=== PATIENT | male | born 1945 | race Caucasian/White ===

== ENCOUNTER 2023-06-26 15:04 | Outpatient (CLI) | payer MEDICARE, SELFPAY ==
--- NOTE | 2023-06-26 15:11 | XR_ITS ---
FINAL REPORT TECHNIQUE: Chest PA & Lateral CLINICAL HISTORY: dyspnea/chf FINDINGS: 2 views of the chest were performed. There is mild cardiomegaly. The patient is status post median sternotomy. The lungs are clear. There are small bilateral pleural effusions. There is no pneumothorax. The bony thorax appears intact. IMPRESSION: Small bilateral pleural effusions. Reviewed, Interpreted and Dictated by Sumeet Gudino MD Transcribed by Liz Garner Authenticated and [facility]
[2023-06-26 15:42] LABS: Basophils # 0.1 K/mm3 (0-0.2); Basophils % 0.7 % (0.1-2.0); Eosinophils # 0.5 K/mm3 (0.0-0.4); Eosinophils % 6.8 % (0.1-12.0); Hematocrit 37.2 % (42.0-52.0); Hemoglobin 11.9 g/dL (14.1-18.0); Lymphocytes # 1.4 K/mm3 (0.7-4.5); Lymphocytes % 20.9 % (10-50); Mean Corpuscular HGB Conc 31.9 g/dL (31.8-35.4); Mean Corpuscular Hemoglobin 32.7 pg (27.0-31.2); Mean Corpuscular Volume 102.5 fl (80-94); Mean Platelet Volume 9.4 fl (7.4-10.4); Monocytes # 0.3 K/mm3 (0.1-1.0); Monocytes % 4.1 % (1.7-9.3); Neutrophils # 4.5 K/mm3 (1.8-7.8); Neutrophils % 67.5 % (37.0-80.0); Platelet Count 183 K/mm3 (142-424); Red Blood Count 3.63 M/mm3 (4.60-6.20); Red Cell Distribution Width 16.6 % (11.5-17.5); White Blood Count 6.7 K/mm3 (4.8-10.8)
[2023-06-26 16:45] LABS: Free T4 (Free Thyroxine) 1.43 ng/dl (0.78-2.19)
[2023-06-26 19:34] LABS: Alanine Aminotransferase 17 U/L (12-78); Albumin Level 2.3 g/dl (3.5-5.0); Alkaline Phosphatase 98 U/L (38-126); Anion Gap 2.9 mEq/L (5-15); Aspartate Amino Transferase 34 U/L (17-59); Bilirubin,Direct 0.2 mg/dl (0.0-0.4); Bilirubin,Indirect 0.3 mg/dL (0.0-0.9); Bilirubin,Total 0.5 mg/dl (0.2-1.3); Bilirubin,Unconjugated 0.3 mg/dL (0.0-1.1); Blood Urea Nitrogen 31 mg/dl (9-20); Calcium 7.8 mg/dl (8.4-10.2); Carbon Dioxide 33 mmol/L (22.0-30.0); Chloride 107 mmol/L (98-107); Cholesterol 161 mg/dl (140-200); Estimated Glomerular Filt Rate 45 ml/min (>60); GFR (African American) 55 ML/MIN (>60); Glucose 86 mg/dl (74-100); HDL Cholesterol 53 mg/dl (40-60); Magnesium 1.5 mg/dl (1.6-2.3); Potassium 3.9 mmoL/L (3.5-5.1); Sodium 139 mmol/L (136-145); Total Protein,Serum 4.4 g/dl (6.3-8.2); Triglycerides 144 mg/dl (30-150); VLDL Cholesterol 29 mg/dL (0-40)
[2023-06-26 19:46] LABS: NT Pro Brain Natriuretic Pep. 4940 pg/mL (0-450)
[2023-06-26 19:49] LABS: Direct LDL Cholesterol 66.03 mg/dL (100-129)
== END 2023-06-26 23:59 | disposition home or self-care (01) ==
LOC: LAB 15:06
PROVIDERS: PCP Internal Medicine; Visit Provider Internal Medicine
DX: I25.10 Atherosclerotic heart disease of native coronary artery without angina pectoris (principal); I50.23 Acute on chronic systolic (congestive) heart failure; R42 Dizziness and giddiness; R60.0 Localized edema; R06.00 Dyspnea, unspecified; I48.91 Unspecified atrial fibrillation; R94.31 Abnormal electrocardiogram [ECG] [EKG]; I89.0 Lymphedema, not elsewhere classified
CPT/HCPCS: 36415; 71046; 80048; 80061; 80076; 82533; 83735; 83880; 84439; 84443; 85025; 93225

== ENCOUNTER 2023-06-27 06:33 | Outpatient (CLI) | payer SELFPAY ==
[2023-06-27 20:02] LABS: Free Thyroxine Index 2.5 ug/dL (5.93-13.13); T4 (Thyroxine) 4.9 ug/dl (5.53-11.0); Triiodothryronine (T3) Uptake 52 % (23.5-40.5)
[2023-06-27 20:33] LABS: Free T4 (Free Thyroxine) 1.32 ng/dl (0.78-2.19)
[2023-06-29 13:13] LABS: Triiodothyronine (T3) Total 51 ng/dL (71-180)
== END 2023-06-27 23:59 | disposition home or self-care (01) ==
LOC: LAB.DROPOF 06-29 06:34
PROVIDERS: PCP Physician Assistant; Visit Provider Physician Assistant
DX: E03.9 Hypothyroidism, unspecified (principal); I95.9 Hypotension, unspecified
CPT/HCPCS: 84436; 84439; 84443; 84479; 84480

== ENCOUNTER 2023-06-29 12:13 | Outpatient (CLI) | payer MEDICARE, SELFPAY | END 2023-06-29 23:59 | disposition home or self-care (01) | LOC: RT 12:14 | PROVIDERS: PCP Internal Medicine; Visit Provider Internal Medicine | DX: I48.91 Unspecified atrial fibrillation (principal); I50.9 Heart failure, unspecified; R60.0 Localized edema; R42 Dizziness and giddiness; R06.00 Dyspnea, unspecified; R94.31 Abnormal electrocardiogram [ECG] [EKG] | CPT/HCPCS: 93270 ==

== ENCOUNTER 2023-07-05 13:08 | Outpatient (CLI) | payer MEDICARE, SELFPAY ==
--- NOTE | 2023-07-05 13:09 | CA_ITS ---
APPROVED REPORT EXAM: Comprehensive 2D, Doppler, and color-flow Echocardiogram Search Strategist: Kely Dukes CRT Ht: 6 ft 3 in Wt: 256lbs BSA: 2.44 BP: 129/70 mmHg Indications: CAGB X 07 MAY 2023, CAD, AFIB chronic, HTN, HLD, SOB, bilateral small pleural effusions on cxr 06/25 2D Dimensions LA Volume 66.90 mL LA Volume Index 26.80 mL/m2 (M/F) 16-34 M-Mode Dimensions RVDd 3.19 cm (0.9-2.6) LA Diam 4.62 cm (1.9-4.0) LVDd 3.49 cm (3.5-5.7) LVDs 2.50 cm (3.5-5.7) IVSd 2.31 cm (0.6-1.1) PWd 0.83 cm (0.6-1.1) EF (Teich) 55.80% FS 28.40% EDV (Teich) 50.50 mL ESV (Teich) 22.30 mL LV Diastology E Decel Time 140 (160-240 msec) E/A Ratio 3.22 Aortic Valve ANDRIA Index 0.96 cm2/m2 AoV Peak Freddie. 204.0 (50-130 cm/s) AI PHT 241.00 ms AO Peak GR. 16.60 mmHg AO Mean GR. 10.00 (<5 mmHg) AO VTI 38.5 (18-25 cm) ANDRIA (VTI) 2.40 (2.5-4.5 cm2) Mitral Valve MV E Max Freddie. 107.0 (40-130 cm/s) MV A Velocity 33.0 (40-130 cm/s) E/A Ratio 3.22 MV PHT 41.0 ms Pulmonary Valve PV Peak Velocity 130.0 (50-150 cm/s) Tricuspid Valve TR P. Velocity 282.00 cm/s RAP Estimate 10.00 mmHg RVSP 41.90 mmHg Left Ventricle The left ventricle is normal size. The left ventricular systolic function is normal. The left ventricular ejection fraction is within the normal range. Proximal septal thickening is noted. There is normal LV segmental wall motion. LVEF is 55%. Right Ventricle The right ventricle is normal size. The right ventricular systolic function is normal. Atria Left atrium is mildly dilated. Right atrium is mildly dilated. There is no Doppler evidence of interatrial shunt. Aortic Valve The aortic valve is mildly thickened. Aortic sclerosis is present, but no evidence of aortic stenosis. Mild aortic regurgitation is present. Mitral Valve The mitral valve is mildly thickened. No evidence of mitral valve stenosis. Trace mitral regurgitation. Tricuspid Valve The tricuspid valve leaflets are thin and pliable. Mild to moderate tricuspid regurgitation. RVSP is 25-30 mmHg. Pulmonic Valve The pulmonary valve is normal in structure. Trace pulmonic regurgitation. Great Vessels The aortic root is normal in size. The ascending aorta is normal in size. IVC is normal in size and collapses >50% with inspiration. Pericardium There is a small-sized, circumferential pericardial effusion present. The largest pocket is noted anteriorly towards the RV free wall and apex. There is slight invagination of the RA during systole, but no evidence of chamber collapse. No clear echo indications of tamponade. Pericardial effusion is present. A mediastinal echolucency is also present, which likely represents post-operative mediastinal fluid accumulation. Other Information Study Quality: Fair Conclusion Normal biventricular systolic function. Biatrial dilation. Mild AI. Mild to moderate TR. RVSP is 25-30 mmHg. Small-sized, circumferential pericardial effusion present. The largest pocket is noted anteriorly towards the RV free wall and apex. There is slight invagination of the RA during systole, but no evidence of chamber collapse. No clear echo indications of tamponade. Pericardial effusion is present. A mediastinal echolucency is also present, which likely represents post-operative mediastinal fluid accumulation. Further evaluation with serial limited TTEs is recommended to assess pericardial effusion progression, as well as CT chest to confirm the presence and extent of mediastinal fluid. Electronically signed by : Dannielle Jama MD 07/06/2023 00:38:10
== END 2023-07-05 23:59 | disposition home or self-care (01) ==
LOC: RT 13:09
PROVIDERS: PCP Internal Medicine; Visit Provider Internal Medicine
DX: I50.9 Heart failure, unspecified (principal); R60.0 Localized edema; R42 Dizziness and giddiness; R06.00 Dyspnea, unspecified; I48.91 Unspecified atrial fibrillation; R94.31 Abnormal electrocardiogram [ECG] [EKG]
CPT/HCPCS: 93306

== ENCOUNTER 2023-07-20 12:47 | Outpatient (CLI) | payer MEDICARE, SELFPAY ==
--- NOTE | 2023-07-20 12:47 | CA_ITS ---
APPROVED REPORT EXAM: Comprehensive 2D, Doppler, and color-flow Echocardiogram Solar Project Coordination Specialist: MABEL Terrell, RVS Ht: 6 ft 3 in Wt: 256lbs BSA: 2.44 BP: 129/70 mmHg Indications: CABG 05/2023, Follow up pleural & pericardial effusions, SOA, HFrEF M-Mode Dimensions RVDd 4.28 cm (0.9-2.6) LA Diam 4.95 cm (1.9-4.0) LVDd 4.87 cm (3.5-5.7) LVDs 2.98 cm (3.5-5.7) IVSd 1.14 cm (0.6-1.1) PWd 0.85 cm (0.6-1.1) EF (Teich) 69.10% FS 38.80% EDV (Teich) 111.20 mL ESV (Teich) 34.40 mL Other Information Study Quality: Technically Difficult Conclusion This is a limited TTE to evaluate for pericardial effusion. Limited windows were obtained. Technically difficult study. There is a small sized, circumferential pericardial effusion present. The largest pocket measures 0.2 cm in diastole. The IVC is collapsible. There is slight invagination of the RA during systole, but overall no clear evidence of chamber collapse. Large pleural effusions are present. Compared to prior study from 07/05/2023, the pericardial effusion appears similar or slightly improved. The mediastinal echolucency is no longer visualized in this present study. The pleural effusions are new. Electronically signed by : Dannielle Jama MD 07/20/2023 23:18:34
== END 2023-07-20 23:59 | disposition home or self-care (01) ==
PROVIDERS: PCP Internal Medicine; Visit Provider Nurse Practitioner
DX: I50.30 Unspecified diastolic (congestive) heart failure (principal); E03.9 Hypothyroidism, unspecified; I25.10 Atherosclerotic heart disease of native coronary artery without angina pectoris; I89.0 Lymphedema, not elsewhere classified; R60.0 Localized edema; I48.91 Unspecified atrial fibrillation; R94.31 Abnormal electrocardiogram [ECG] [EKG]; I31.39 Other pericardial effusion (noninflammatory)
CPT/HCPCS: 93308

== ENCOUNTER 2023-08-31 14:56 | Outpatient (CLI) | payer MEDICARE, SELFPAY | END 2023-08-31 23:59 | disposition home or self-care (01) | LOC: RT 14:56 | PROVIDERS: PCP Internal Medicine; Visit Provider Physician Assistant | DX: R00.1 Bradycardia, unspecified (principal) | CPT/HCPCS: 93270 ==

== ENCOUNTER 2023-09-11 14:40 | Outpatient (CLI) | payer MEDICARE, SELFPAY ==
--- NOTE | 2023-09-11 14:41 | CA_ITS ---
APPROVED REPORT EXAM: Limited 2D Echocardiogram Operational Assistant: RT Ashly(R) Ht: 6 ft 3 in Wt: 198lbs BSA: 2.18 BP: 75/45 mmHg Indications: Ordered as a limited to reassess pericardial effusion. Last echo performed 07/20/23. HFpEF, AFIB, hypotension Tricuspid Valve TR P. Velocity 305.00 cm/s RAP Estimate 15.00 mmHg RVSP 52.20 mmHg Other Information Study Quality: Fair Conclusion This is a limited TTE to evaluate for pericardial effusion. Limited windows were obtained. There is a trivial, anterior pericardial effusion present. The largest pocket measures 0.1 cm in diastole. No echo indications of tamponade. No evidence of chamber collapse. Compared to prior study from 07/20/2023, the pericardial effusion appears smaller in size. The posterior pocket is no longer visualized. Electronically signed by : Dannielle Jama MD 09/12/2023 23:18:24
== END 2023-09-11 23:59 | disposition home or self-care (01) ==
LOC: RT 14:41
PROVIDERS: PCP Internal Medicine; Visit Provider Physician Assistant
DX: I50.32 Chronic diastolic (congestive) heart failure (principal)
CPT/HCPCS: 93308

== ENCOUNTER 2023-09-26 14:56 | Outpatient (CLI) | payer MEDICARE, SELFPAY ==
--- NOTE | 2023-09-26 14:59 | US_ITS ---
FINAL REPORT TECHNIQUE: Limited sonographic images of the thyroid were obtained. CLINICAL HISTORY: hypothyroidism, weight loss FINDINGS: The right lobe of the thyroid measures 4.0 x 1.9 x 1.3 cm. The left lobe of the thyroid measures 3.7 x 1.3 x 1.3 cm. The isthmus measures 4 mm. There are few scattered T2 and T3 nodules all measuring 7 mm or less. Largest T3 nodule measures 6 mm involving the anterior left lobe. No suspicious thyroid nodule is identified. IMPRESSION: Tiny benign-appearing thyroid nodules. No recommended follow-up at this time. Reviewed, Interpreted and Dictated by Hanna Lennon MD Transcribed by Cherry Knott Authenticated and [facility]
== END 2023-09-26 23:59 | disposition home or self-care (01) ==
LOC: RAD 14:57
PROVIDERS: PCP Internal Medicine; Visit Provider Physician Assistant
DX: E03.9 Hypothyroidism, unspecified (principal); R63.4 Abnormal weight loss; Z68.24 Body mass index [BMI] 24.0-24.9, adult
CPT/HCPCS: 76536

== ENCOUNTER 2023-12-18 14:48 | Outpatient (CLI) | payer MEDICARE, SELFPAY ==
--- NOTE | 2023-12-18 14:56 | CA_ITS ---
FINAL REPORT TECHNIQUE: Real-time imaging was performed of the extracranial carotid arteries in transverse and longitudinal planes, with color duplex evaluation of blood flow velocity. Spectral analysis was performed. The cervical vertebral arteries were also examined. CLINICAL HISTORY: dizziness, HTN, HLD, hx CVA 2 years ago, hx CABG, weakness, near syncopal episodes, episodes of hypotension COMPARISON: None FINDINGS: NASCET technique is utilized for stenosis evaluation. Right carotid system (centimeters/second): CCA: 144 ICA: 79 ECA: 116 Vertebral artery: Antegrade ICA/CCA ratio: 1.14 Mild plaque is identified at the bifurcation. Left carotid system (centimeters/second): CCA: 134 ICA: 81 ECA: 151 Vertebral artery: Antegrade ICA/CCA ratio: 0.9 Mild plaque is identified at the bifurcation. IMPRESSION: Less than 50% right ICA stenosis. Less than 50% left ICA stenosis. Antegrade flow bilateral vertebral arteries. Reviewed, Interpreted and Dictated by Sumeet Gudino MD Transcribed by Briana Carter Authenticated and [facility]
== END 2023-12-18 23:59 | disposition home or self-care (01) ==
LOC: RT 14:52
PROVIDERS: PCP Internal Medicine; Visit Provider Physician Assistant
DX: R42 Dizziness and giddiness (principal)
CPT/HCPCS: 93880

== ENCOUNTER 2024-02-20 10:33 | Outpatient (CLI) | payer MEDICARE, SELFPAY ==
[2024-02-20 11:02] LABS: Blood Urea Nitrogen 23 mg/dl (9-20); Estimated Glomerular Filt Rate 36 ml/min (>60); GFR (African American) 44 ML/MIN (>60)
[2024-02-20] MEDS: SODIUM CHLORIDE 0.9% 10ML SYR (RAD ONLY) 10 ML IV (12:11)
[2024-02-20] MEDS: 0.9 % SODIUM CHLORIDE 50 ML VIAL IV (12:11)
[2024-02-20] MEDS: GADOTERIDOL INJ 20ML SYRINGE 19 ML IV (12:11)
== END 2024-02-20 23:59 | disposition home or self-care (01) ==
LOC: RAD 10:35
PROVIDERS: PCP Internal Medicine; Visit Provider Physician Assistant
DX: I50.32 Chronic diastolic (congestive) heart failure (principal)
CPT/HCPCS: 36415; 75561; 82565; 84520; A9576

== ENCOUNTER 2024-03-21 12:08 | Outpatient (CLI) | payer MEDICARE, SELFPAY ==
[2024-03-21 12:24] LABS: Basophils # 0.1 K/mm3 (0-0.2); Basophils % 1.2 % (0.1-2.0); Eosinophils # 0.3 K/mm3 (0.0-0.4); Eosinophils % 4.3 % (0.1-12.0); Hematocrit 42.4 % (42.0-52.0); Hemoglobin 13.6 g/dL (14.1-18.0); Lymphocytes # 1.7 K/mm3 (0.7-4.5); Lymphocytes % 24.8 % (10-50); Mean Corpuscular HGB Conc 32.1 g/dL (31.8-35.4); Mean Corpuscular Hemoglobin 28.8 pg (27.0-31.2); Mean Corpuscular Volume 89.6 fl (80-94); Mean Platelet Volume 11.7 fl (7.4-10.4); Monocytes # 0.6 K/mm3 (0.1-1.0); Monocytes % 8.8 % (1.7-9.3); Neutrophils # 4.2 K/mm3 (1.8-7.8); Neutrophils % 60.5 % (37.0-80.0); Platelet Count 233 K/mm3 (142-424); Red Blood Count 4.73 M/mm3 (4.60-6.20); Red Cell Distribution Width 16.1 % (11.5-17.5); White Blood Count 6.9 K/mm3 (4.8-10.8)
[2024-03-21 13:13] LABS: Free T4 (Free Thyroxine) 2.47 ng/dl (0.78-2.19)
[2024-03-21 14:38] LABS: Albumin Level 3.2 g/dl (3.5-5.0); Chloride 97 mmol/L (98-107); Sodium 135 mmol/L (136-145)
[2024-03-21 14:40] LABS: Estimated Glomerular Filt Rate 42 ml/min (>60); GFR (African American) 51 ML/MIN (>60)
[2024-03-21 14:41] LABS: Alanine Aminotransferase 18 U/L (12-78); Alkaline Phosphatase 114 U/L (38-126); Aspartate Amino Transferase 27 U/L (17-59); Bilirubin,Direct 0.1 mg/dl (0.0-0.4); Bilirubin,Indirect 0.4 mg/dL (0.0-0.9); Bilirubin,Total 0.5 mg/dl (0.2-1.3); Bilirubin,Unconjugated 0.4 mg/dL (0.0-1.1); Carbon Dioxide 35 mmol/L (22.0-30.0); Cholesterol 186 mg/dl (140-200); Glucose 103 mg/dl (74-100); Total Protein,Serum 5.7 g/dl (6.3-8.2); Triglycerides 165 mg/dl (30-150); VLDL Cholesterol 33 mg/dL (0-40)
[2024-03-21 14:42] LABS: Chol/HDL Ratio 3.9 (1-3.5); HDL Cholesterol 48 mg/dl (40-60); Magnesium 1.7 mg/dl (1.6-2.3)
[2024-03-21 14:49] LABS: Blood Urea Nitrogen 24 mg/dl (9-20)
[2024-03-21 14:52] LABS: Direct LDL Cholesterol 99.88 mg/dL (100-129)
[2024-03-21 14:53] LABS: NT Pro Brain Natriuretic Pep. 1660 pg/mL (0-450)
[2024-03-21 15:12] LABS: Thyroid Stimulating Hormone 1.93 uIU/mL (0.465-4.68)
== END 2024-03-21 23:59 | disposition home or self-care (01) ==
PROVIDERS: PCP Internal Medicine; Visit Provider Physician Assistant
DX: R60.9 Edema, unspecified (principal); I95.89 Other hypotension; R63.4 Abnormal weight loss; R00.1 Bradycardia, unspecified; I31.39 Other pericardial effusion (noninflammatory); I50.32 Chronic diastolic (congestive) heart failure; E03.8 Other specified hypothyroidism; I25.10 Atherosclerotic heart disease of native coronary artery without angina pectoris; I89.0 Lymphedema, not elsewhere classified; R60.0 Localized edema; R42 Dizziness and giddiness; I10 Essential (primary) hypertension; I48.20 Chronic atrial fibrillation, unspecified; R94.31 Abnormal electrocardiogram [ECG] [EKG]; R06.00 Dyspnea, unspecified; I50.9 Heart failure, unspecified
CPT/HCPCS: 36415; 80048; 80061; 80076; 83735; 83880; 84439; 84443; 85025; 93225; 93227

== ENCOUNTER 2024-03-23 12:42 | Outpatient (CLI) | payer MEDICARE, SELFPAY | END 2024-03-23 23:59 | disposition home or self-care (01) | PROVIDERS: PCP Internal Medicine; Visit Provider Physician Assistant | DX: R00.2 Palpitations (principal); R00.1 Bradycardia, unspecified | CPT/HCPCS: 93270 ==

== ENCOUNTER 2024-04-03 12:02 | Outpatient (CLI) | payer MEDICARE, SELFPAY ==
--- NOTE | 2024-04-03 | CA_ITS ---
APPROVED REPORT Exam: Pharmacologic Technologist: Miriam Melara Ht: 6 ft 3 in Wt: 206 lbs BSA: 2.22 m2 HR: 69 bpm BP: 142/77 mmHg Rhythm: Afib with CVR, RBBB Medical History Medical History: HTN Medications: Allopurinol, Aspirin, Atorvastatin, Bumetanide, Vit B12, Empagliflozin, Vit D2, Ferrous Sulfate, Fludro Cortisone, Folic Acid, Levothyroxine, Midodrine, Nystatin, Pantoprazole, Potassium Chloride ER, Rivaroxaban Allergies: No known drug allergies Cardiac Risk Factors: HTN Stress Test Details Test: Lexiscan HR Resting HR: 69 bpm Max Heart Rate (APMHR): 140.638349 bpm Target HR (85% APMHR): 119.527405 bpm Recovery HR: 71 bpm BP Resting BP: 142.0/77.0 mmHg Max BP: 142.0/77.0 mmHg Recovery BP: 133.0/68.0 mmHg ECG Resting ECG: Afib with CVR, RBBB Stress ECG Conclusion No cp <1.5mm ST segment changes Non-diagnostic lexiscan stress Electronically signed by : Dannielle Jama MD 04/05/2024 00:15:18
--- NOTE | 2024-04-03 12:05 | CA_ITS ---
APPROVED REPORT EXAM: Comprehensive 2D, Doppler, and color-flow Echocardiogram Supervisor Cell Maintenance: Michelle Downs RT(R) Ht: 6 ft 3 in Wt: 206lbs BSA: 2.22 BP: 114/70 mmHg Indications: dyspnea, edema, CABG X 3, weight loss, bradycardia, AFIB, renal insufficiency 2D Dimensions LA Volume 38.40 mL LA Volume Index 17.30 mL/m2 (M/F) 16-34 EF AP4 76.00 % GL Strain -22.0 % M-Mode Dimensions RVDd 4.36 cm (0.9-2.6) LA Diam 3.81 cm (1.9-4.0) LVDd 5.02 cm (3.5-5.7) LVDs 3.66 cm (3.5-5.7) IVSd 1.03 cm (0.6-1.1) PWd 0.89 cm (0.6-1.1) EF (Teich) 52.60% FS 27.10% EDV (Teich) 119.30 mL ESV (Teich) 56.60 mL LV Diastology E Decel Time 200 (160-240 msec) E/A Ratio 1.78 Aortic Valve ANDRIA Index 1.06 cm2/m2 AoV Peak Freddie. 223.0 (50-130 cm/s) AI PHT 777.00 ms AO Peak GR. 20.10 mmHg AO Mean GR. 10.00 (<5 mmHg) AO VTI 45.9 (18-25 cm) ANDRIA (VTI) 2.41 (2.5-4.5 cm2) Mitral Valve MV A Velocity 58.0 (40-130 cm/s) E/A Ratio 1.78 Left Ventricle The left ventricle is normal size. The left ventricular systolic function is normal. The left ventricular ejection fraction is within the normal range. There is increased LV wall thickness.Diastolic function is indeterminate. There is normal LV segmental wall motion. LVEF is 60%. Right Ventricle The right ventricle is normal size. The right ventricular systolic function is normal. Atria The left atrium is mildly dilated. The right atrium is mildly dilated. There is no Doppler evidence of interatrial shunt. Aortic Valve The aortic valve is mildly thickened. Mild aortic stenosis is present. Peak velocity 2.8 m/s. Mean AV gradient 12 mmHg. Max AV gradient 28 mmHg. ANDRIA by continuity equation is 2.0 cm???. Mild aortic regurgitation. Mitral Valve The mitral valve leaflets are mildly thickened. Mild mitral regurgitation. No evidence of mitral valve stenosis. Tricuspid Valve The tricuspid valve leaflets are thin and pliable. Mild tricuspid regurgitation. RVSP is 25-30 mmHg. Pulmonic Valve The pulmonary valve is normal in structure. Trace pulmonic regurgitation. Great Vessels The aortic root is normal in size. The ascending aorta is not well-visualized. IVC is normal in size and collapses >50% with inspiration. Pericardium There is no pericardial effusion. Other Information Study Quality: Fair Conclusion Normal biventricular systolic function. Biatrial dilation. Mild (peak velocity 2.8 m/s. Mean AV gradient 12 mmHg. Max AV gradient 28 mmHg. ANDRIA by continuity equation is 2.0 cm???). Mild AI, mild MR, mild TR. No evidence of pericardial effusion. Compared to prior study from 09/11/2023, the previously visualized pericardial effusion is no longer present. Electronically signed by : Dannielle Jama MD 04/04/2024 11:44:41
--- NOTE | 2024-04-03 12:06 | NM_ITS ---
APPROVED REPORT Exam: Nuclear Stress Test Indication: cabg, hyperlipidemia, fm hx, a-fib, c.p., sob, edema Patient Location: Outpatient Stress Tech: Miriam Melara SC Tech:Maris Graff ANKIT RT (R)(N)(M) Ht: 6 ft 3 in Wt: 200 lbs HR: 69 bpm BP: 142/77 mmHg BSA: 2.19 m2 TID: 1.05 BMI: 24.9 History: cabg, hyperlipidemia, fm hx, a-fib, c.p., sob, edema pt could not lay on stomach for prone images Procedure: Patient received 0.4 mg of intravenous Lexiscan, resting heart rate 69 bpm, resting blood pressure 142/77 mmHg, with Lexiscan maximum heart rate achieved was 78 bpm which is % of the maximum predicted heart rate and blood pressure was 112/65 mmHg. With Lexiscan, patient denied any complaint of chest pain. Cardiac Stress and Resting SPECT Images: Cardiac Stress and Resting SPECT images were obtained using technetium 99m Myoview 32.4 mCi stress and 10.45 mCi at rest. The patient could not lie on his abdomen. Therefore, prone stress imaging could not be performed. This may affect the diagnostic interpretation of the study findings. Resting and stress imaging in supine positions demonstrate medium sized, mild, predominantly fixed perfusion defect in the distal inferior LV wall, as well as the LV apex. There is a small region of reversibility in the inferoapical region. Gated imaging demonstrates low-normal global LV systolic function. LVEF is calculated at 53%. Conclusion: Medium sized, mild, predominantly fixed perfusion defect in the distal inferior LV wall, as well as the LV apex. There is a small region of reversibility in the inferoapical region. Gated imaging demonstrates low-normal global LV systolic function. LVEF is calculated at 53%. Electronically signed by : Dannielle Jama MD 04/04/2024 11:17:39
[2024-04-03] MEDS: SODIUM CHLORIDE 0.9% 10ML SYR (RAD ONLY) 10 ML IV ×2 (13:29)
[2024-04-03] MEDS: REGADENOSON 0.4MG/5ML SYRINGE 0.4 MG IV (13:29)
[2024-04-03] MEDS: ISOTOPE MYOVIEW (PER STUDY) 1 DOSE IV (13:29)
== END 2024-04-03 23:59 | disposition home or self-care (01) ==
LOC: RAD 12:03
PROVIDERS: PCP Internal Medicine; Visit Provider Physician Assistant
DX: I25.10 Atherosclerotic heart disease of native coronary artery without angina pectoris (principal); R60.9 Edema, unspecified; I95.89 Other hypotension; R63.4 Abnormal weight loss; R00.1 Bradycardia, unspecified; I31.39 Other pericardial effusion (noninflammatory); I50.32 Chronic diastolic (congestive) heart failure; E03.8 Other specified hypothyroidism; I89.0 Lymphedema, not elsewhere classified; R60.0 Localized edema; R42 Dizziness and giddiness; I10 Essential (primary) hypertension; I48.20 Chronic atrial fibrillation, unspecified; R94.31 Abnormal electrocardiogram [ECG] [EKG]; R06.00 Dyspnea, unspecified
CPT/HCPCS: 78452; 93017; 93018; 93306; A9502; J2785

== ENCOUNTER 2024-04-04 12:32 | Outpatient (CLI) | payer MEDICARE, SELFPAY ==
[2024-04-04 13:31] LABS: Chloride 98 mmol/L (98-107)
[2024-04-04 13:32] LABS: Sodium 140 mmol/L (136-145)
[2024-04-04 13:35] LABS: Blood Urea Nitrogen 23 mg/dl (9-20); Calcium 8.7 mg/dl (8.4-10.2); Carbon Dioxide 35 mmol/L (22.0-30.0); Estimated Glomerular Filt Rate 42 ml/min (>60); GFR (African American) 51 ML/MIN (>60); Glucose 102 mg/dl (74-100)
[2024-04-04 13:48] LABS: Anion Gap 9.9 mEq/L (5-15); Potassium 2.9 mmoL/L (3.5-5.1)
== END 2024-04-04 23:59 | disposition home or self-care (01) ==
LOC: LAB 12:33
PROVIDERS: PCP Internal Medicine; Visit Provider Physician Assistant
DX: E87.6 Hypokalemia (principal); I95.89 Other hypotension
CPT/HCPCS: 36415; 80048

== ENCOUNTER 2024-04-18 14:22 | Outpatient (CLI) | payer MEDICARE, SELFPAY ==
[2024-04-18 16:44] LABS: Blood Urea Nitrogen 24 mg/dl (9-20); Calcium 9.4 mg/dl (8.4-10.2); Carbon Dioxide 33 mmol/L (22.0-30.0); Chloride 97 mmol/L (98-107); Estimated Glomerular Filt Rate 36 ml/min (>60); GFR (African American) 44 ML/MIN (>60); Glucose 94 mg/dl (74-100); Sodium 140 mmol/L (136-145)
[2024-04-18 16:55] LABS: NT Pro Brain Natriuretic Pep. 1620 pg/mL (0-450)
== END 2024-04-18 23:59 | disposition home or self-care (01) ==
LOC: LAB 14:22
PROVIDERS: PCP Internal Medicine; Visit Provider Internal Medicine
DX: I11.0 Hypertensive heart disease with heart failure (principal); I50.32 Chronic diastolic (congestive) heart failure; I25.10 Atherosclerotic heart disease of native coronary artery without angina pectoris; I31.39 Other pericardial effusion (noninflammatory); I48.20 Chronic atrial fibrillation, unspecified; I95.89 Other hypotension; E87.6 Hypokalemia; E03.8 Other specified hypothyroidism; R60.9 Edema, unspecified; R94.31 Abnormal electrocardiogram [ECG] [EKG]; R42 Dizziness and giddiness
CPT/HCPCS: 36415; 80048; 82533; 83880

== ENCOUNTER 2024-04-26 13:42 | Observation (INO) | payer MEDICARE, SELFPAY ==
[2024-04-26] VITALS (21 sets, daily range): BP systolic 96–168; BP diastolic 44–95; PULSE 48–82; RESP 16–22; TEMP 36.1–36.5; O2SAT 93–98; BMI 25.7
--- NOTE | 2024-04-26 07:05 | IR_ITS ---
APPROVED REPORT Patient Location: Outpatient Outbound Telemarketer: Rubén Roth, RT (R) PROCEDURES Right heart catheterization Left heart catheterization Left ventriculogram Selective coronary angiogram Bilateral selective renal angiogram Drug-eluting stent deployment to the ostial proximal and distal left main artery Drug-eluting stent deployment to the proximal circumflex artery INDICATION Coronary artery disease, Angina pectoris, History of coronary bypass surgery, Recurrent syncope, Renal failure creatinine 2.1, Hypertension suspect renovascular hypertension, Right-sided congestive heart failure Informed consent was obtained prior to the procedure. COMPLICATIONS NONE Estimated Blood Loss: LESS THAN 10 ML TECHNIQUE One percent lidocaine was used to anesthetize the right groin. The right femoral artery was accessed via the Seldinger technique. A 4-Gambian and 7 swazi sheath was placed in the right femoral artery and vein respectfully. A 7 [place] sheath was introduced and a Eva-Isabelle catheter was floated using hemodynamic waveforms in the pulmonary artery, right ventricle , and right atrium. Saturations were obtained in the pulmonary artery and the right atrium. The JR-4 and JL-4 and multipurpose catheter catheter was also used to perform left heart catheterization, left ventriculography and selective coronary angiogram as well as selective engage the left internal mammary artery and the vein graft to the circumflex artery and saphenous vein graft to the right coronary. At the end the diagnostic angiogram therapeutic heparin was administered giving a giving a therapeutic ACT and the 5 [place] arterial sheath was exchanged for a 6 [place] sheath. A JL 3.5 guide catheter was placed in left main artery followed by Choice PT extra-support wire placed in the circumflex artery. A 4 mm x 15 mm Aj frontier stent was placed in the proximal left main artery extending distally. This was deployed at 20 [place]. An additional 3.5 x 12 mm [place] frontier stent was placed distal to the for stent yet still overlapping it into the proximal circumflex artery and deployed at 12 [place]. The balloon was brought back and deployed at 20 [place] to match the 2 stents. ANNI-3 flow was present before and after the procedure. At the end the procedure the apparatus was removed the groin is reprepped closure change femoral arterial sheath was removed and hemostasis was achieved using Perclose device patient was transferred to the postop holding area in stable condition ANGIOGRAPHIC RESULTS The left main artery Has a distal concentric 80% stenosis The left anterior descending artery Is patent in the proximal segment and then has competitive flow from the left internal mammary artery The circumflex artery Is large and dominant and gives rise to a medium size ramus intermedius which is widely patent. The circumflex artery then has 40% proximal stenosis mid vessel 50 and 60% stenoses. The third obtuse marginal artery is small and has competitive flow from a vein graft. There is a 70% stenosis immediately proximal to the anastomosis of the vein graft. The vessel gives rise to a large posterior descending artery which is widely patent The right coronary artery Nondominant proximally occluded The DENNY ventriculogram reveals Normal 60% The left ventricular end-diastolic pressure 5 mmHg GUERRA to LAD widely patent Saphenous to OM 3 is widely patent. The vein graft retrograde fills the obtuse marginal artery and circumflex artery there is a 70% stenosis at the anastomotic site Saphenous vein graft to the right coronary is patent Right renal artery singular normal Left renal artery has a dual arterial supply to the kidney with both arteries being normal Right atrial pressure 3 mmHg Pulmonary artery pressure 25 over 10 mmHg Pulmonary occlusion pressure 8 mmHg Hemoglobin 13.8 Pulmonary artery saturation 67% Right atrial saturation 66% Aortic saturation 98 Cardiac output 5.1 Cardiac index 2.3 IMPRESSION Severe left main disease extending into a large dominant circumflex artery which is inadequately backfilled by a vein graft supplying a small and diseased third obtuse marginal artery Successful stenting of the left main artery as described above Successful stenting of the circumflex artery as described above Normal ejection fraction Patent GUERRA to LAD Patent saphenous vein graft to right coronary Patent saphenous vein graft to a small third obtuse marginal artery which has retrograde disease and does not feel the [place] vessel Normal renal arteries Patient is intravascularly deplete. PLAN 1. Discontinue Bumex 2. Discontinue potassium chloride 3. Discontinue midodrine 4. Discontinue fludrocortisone 5. Dual antiplatelet therapy 6. Cardiac rehabilitation 7. Avoidance of tobacco products 8. LDL less than 55 achieved high intensity statin 9. I suspect patient's dehydration stems from the complex medical regimen as described above. All these will be discontinued and patient will be given IV fluids. I would caution using lower extremity edema as a metric for intravascular volume Electronically signed by : Gerardo Mccallum MD 04/26/2024 10:39:16
[2024-04-26 08:42] LABS: Basophils # 0.1 K/mm3 (0-0.2); Basophils % 0.8 % (0.1-2.0); Eosinophils # 0.4 K/mm3 (0.0-0.4); Hemoglobin 13.8 g/dL (14.1-18.0); Lymphocytes # 2.1 K/mm3 (0.7-4.5); Lymphocytes % 22.4 % (10-50); Mean Corpuscular HGB Conc 32.1 g/dL (31.8-35.4); Mean Corpuscular Hemoglobin 28.5 pg (27.0-31.2); Mean Corpuscular Volume 88.7 fl (80-94); Mean Platelet Volume 11.5 fl (7.4-10.4); Monocytes # 0.6 K/mm3 (0.1-1.0); Monocytes % 5.9 % (1.7-9.3); Neutrophils # 6.1 K/mm3 (1.8-7.8); Platelet Count 240 K/mm3 (142-424); Red Blood Count 4.85 M/mm3 (4.60-6.20); Red Cell Distribution Width 16.5 % (11.5-17.5); White Blood Count 9.3 K/mm3 (4.8-10.8)
[2024-04-26 08:55] LABS: Chloride 99 mmol/L (98-107); Potassium 3.5 mmoL/L (3.5-5.1); Sodium 138 mmol/L (136-145)
[2024-04-26 08:58] LABS: Anion Gap 7.5 mEq/L (5-15); Blood Urea Nitrogen 24 mg/dl (9-20); Calcium 8.9 mg/dl (8.4-10.2); Carbon Dioxide 35 mmol/L (22.0-30.0); Creatinine Clearance Estimated 37 mL/min (50-200); Estimated Glomerular Filt Rate 31 ml/min (>60); GFR (African American) 37 ML/MIN (>60); Glucose 110 mg/dl (74-100)
[2024-04-26] MEDS: HEPARIN 1,000 UNITS/500ML NS (CATH LAB) 3000 UNIT IV (09:26)
[2024-04-26] MEDS: LIDOCAINE 1% 10ML MDV 20 ML IJ (09:26)
[2024-04-26] MEDS: 0.9 % SODIUM CHLORIDE 500 ML 25 ML IV (09:27)
[2024-04-26] MEDS: diphenhydrAMINE 50MG/ML VIAL 50 MG IV (09:27)
[2024-04-26] MEDS: FENTANYL 100MCG/2ML VIAL 50 MCG IV (10:07)
[2024-04-26] MEDS: MIDAZOLAM HCL 1MG/ML 5ML VIAL 1 MG IV (10:07)
[2024-04-26] MEDS: HEPARIN 1,000 UNITS/ML 10ML VIAL (CATH LAB) 10000 UNIT IV (10:10)
--- NOTE | 2024-04-26 10:22 | SUR.PHASEII ---
NO BETA JAQUAN, OR KIRSTEN/ARB PER MD ORDER
[2024-04-26] MEDS: IOPAMIDOL-370 (76%);100ML BOTTLE 70 ML IV (12:33)
[2024-04-26 12:34] LABS: CATHL Activated Clotting Time 238 SEC (74-125)
[2024-04-26 12:35] LABS: CATHL Arterial O2 SAT 67.3 % (90-100); CATHL Venous O2 SAT 66.9 % (75-80)
[2024-04-26] MEDS: CLOPIDOGREL 300MG TABLET 600 MG PO (12:42)
--- NOTE | 2024-04-26 13:31 | SUR.PHASEII ---
PHONED DR GARCIA REGARDING CONCERNS FOR RIGHT GROIN BLEEDING, INSTRUCTED TO GET PATIENT ADMITTED FOR OBSERVATION. Pressure held for 15 min x3, Sandbag placed on right groin, Dr Alves phoned for bed for overnight observation.
--- NOTE | 2024-04-26 13:59 | SUR.PHASEII ---
DISCHARGE INSTRUCTIONS GIVEN TO PATIENT AND DAUGHTER IN CATHLAB REGARDING NEW MEDICATIONS, AND GROIN SITE CARE.
--- NOTE | 2024-04-26 14:00 | P.HP_ITS ---
History of Present Illness *Admission Date: 04/26/24 *Reason for visit:: Status post heart cath, right groin hematoma *History of present illness: Mr. Lubin is an 78-year-old male with history of coronary artery disease, angina pectoris. Previous history of coronary artery bypass. Has been having recurrent syncope. Presented with hypertension and suspected renovascular hypertension. Right sided congestive heart failure. Was brought in for elective right and left heart cath today due to patient's symptoms. He was found to have severe left main disease extending into a large dominant circumflex artery. Successful stenting of the left main artery was performed along with successful stenting of the circumflex artery. Found to have patent GUERRA to LAD, patent saphenous vein graft to right coronary and patent saphenous vein graft to a small third obtuse marginal artery. Multiple medication adjustments recommended by cardiology. After procedure however given right and left heart cath being performed and access to the right groin along with patient being on Xarelto, noted to have bleeding and concern for development of hematoma even with Perclose and pressure. Medicine was consulted for admission to monitor overnight with serial labs. Upon arrival to the floor, patient is hemodynamically stable. Lying supine. Alert and oriented x 4. Denies significant pain. No chest pain or shortness of breath. [facility] Disclaimer: The information contained in this section may have been updated after the patient was seen, as this information can be updated by other users. Medical History Abnormal stress test Syncope Hypokalemia Hypotension Excessive weight loss Bradycardia Pericardial effusion (HFpEF) heart failure with preserved ejection fraction Coronary artery disease Lymphedema of both lower extremities CHF (congestive heart failure) Hypertension Atrial fibrillation Abnormal electrocardiogram [ECG] [EKG] Kidney damage Surgical History S/P CABG x 3 Family History Other No significant family history Social History Smoking Status: Never smoker alcohol intake: never substance use type: denies use current occupational status: retired Travel in the last 8 weeks: Inside the [place] Have you lived/traveled outside US in past 30 days?: No Contact w/someone who lives/traveled outside US past 30 days?: No Exposure to someone with infectious disease in past 14 days?: No Do you have a fever (greater than 100.4 F or 38 C)?: No Have you tested positive for COVID-19: No Exposed to someone with COVID-19 in past 14 days?: No Do you have a sore throat?: No Do you have a cough?: No Do you have any weakness?: No Are you experiencing any nausea/vomitting?: No Do you have any diarrhea?: No Are you experiencing any unusual bleeding?: No Do you have any muscle aches/pain?: No Do you have any abdominal pain?: No Are you experiencing loss of taste or smell?: No Other Medical History Have you received the Pneumonia Vaccine: Yes Review of Systems Review of Systems Review of systems:: pertinent systems reviewed and negative unless documented below Review of systems (narrative): 14 point review of systems performed, pertinent positives and negatives as per HPI Constitutional Constitutional: Reports system reviewed and no additional complaints, except as documented Eyes Eyes: Reports system reviewed and no additional complaints, except as documented *Cardiovascular Cardiovascular: Reports system reviewed and no additional complaints, except as documented and Denies acrocyanosis *Respiratory Respiratory: Reports as per HPI *Gastrointestinal Gastrointestinal: Reports system reviewed and no additional complaints, except as documented *Musculoskeletal Musculoskeletal: Reports system reviewed and no additional complaints, except as documented Meds Home Medications and Allergies Home Medications ?Medication ?Instructions ?Recorded ?Confirmed ?Type allopurinol 100 mg tablet 100 mg PO BID 06/26/23 04/26/24 History aspirin 81 mg tablet,delayed 81 mg PO DAILY 06/26/23 04/26/24 History release atorvastatin 80 mg tablet 80 mg PO HS 06/26/23 04/26/24 History pantoprazole 20 mg tablet,delayed 20 mg PO DAILY 06/26/23 04/26/24 History release rivaroxaban 20 mg tablet (Xarelto) 20 mg PO QPMWITHMEAL 06/26/23 04/26/24 History cyanocobalamin (vitamin B-12) 1,000 mcg PO WEEKLY 08/03/23 04/26/24 History 1,000 mcg capsule ergocalciferol (vitamin D2) 50 mcg 50 mcg PO DAILY 08/03/23 04/26/24 History (2,000 unit) capsule ferrous sulfate 220 mg (44 mg 110 mg PO DAILY 08/03/23 04/26/24 History iron)/5 mL oral elixir folic acid 20 mg capsule 20 mg PO DAILY 08/03/23 04/26/24 History empagliflozin 10 mg tablet 10 mg PO DAILY 90 days #90 tabs 08/31/23 04/26/24 Rx (Jardiance) ergocalciferol (vitamin D2) 1,250 1,250 mcg PO WEEKLY 03/21/24 04/26/24 History mcg (50,000 unit) capsule clopidogrel 75 mg tablet (Plavix) 75 mg PO DAILY #30 tabs 04/26/24 Rx levothyroxine 137 mcg tablet 137 mcg PO DAILY 04/26/24 04/26/24 History New Prescriptions to Start Prescriptions: clopidogrel [Plavix] Gerardo Mccallum Allergies Allergy/AdvReac Type Severity Reaction Status Date / Time No Known Allergies Allergy Verified 04/26/24 08:52 Exam Data for Last 24 hours Vital signs and Labs for Last 24 Hours: Temp Pulse Resp BP Pulse Ox O2 Del Method 97 F L 78 16 112/51 L 97 Room Air 04/26/24 10:17 04/26/24 13:45 04/26/24 13:45 04/26/24 13:45 04/26/24 13:45 04/26/24 13:45 Laboratory Results - last 24 hr 04/26/24 08:25: WBC 9.3, RBC 4.85, Hgb 13.8 L, Hct 43.0, MCV 88.7, MCH 28.5, MCHC 32.1, RDW 16.5, Plt Count 240, MPV 11.5 H, Neut % (Auto) 66.0, Lymph % (A uto) 22.4, Carroll % (Auto) 5.9, Eos % (Auto) 4.0, Baso % (Auto) 0.8, Neut # (Auto) 6.1, Lymph # (Auto) 2.1, [place] # (Auto) 0.6, Eos # (Auto) 0.4, Baso # (Auto) 0.1, Sodium 138, Potassium 3.5, Chloride 99, Carbon Dioxide 35 H, Anion Gap 7.5, BUN 24 H, Creatinine 2.10 H, Estimated Creat Clear 37, Estimated GFR 31 L, Est GFR ( Amer) 37 L, Glucose 110 H, Calcium 8.9 04/26/24 09:45: ABG O2 Sat (Measured) 67.3 L, POC VBG O2 Sat (Cynthia) 66.9 L 04/26/24 11:02: Activated Clotting Time 238 H* I & O for Last 24 hours: Intake & Output 04/23/24 04/24/24 04/25/24 04/26/24 23:59 23:59 23:59 23:59 Weight 93.44 kg Constitutional Constitutional: no acute distress, average body habitus, chronically ill appearing and cooperative *Routine HEENT Exam Head: Present normocephalic Eye: Present EOMI and PERRL ENT: Present mucous membranes moist *Routine Neck Exam Neck: Present supple; Absent lymphadenopathy *Routine Respiratory Exam Respiratory: Present CTA bilaterally; Absent rhonchi, wheezes or crackles *Routine Cardiovascular Exam Cardiovascular: Present RRR *Routine Abdominal Exam Abdominal: Present soft and normoactive bowel sounds; Absent tenderness *Routine Rectal Exam Rectal:: deferred *Routine Genitalia Exam Genitalia:: normal male *Routine Extremities Exam Extremities: Absent cyanosis, clubbing or edema Comments: Right inguinal region with hematoma around femoral access. Sandbag replaced after exam *Routine Skin Exam Skin: Present intact and warm; Absent rash *Routine Neurological Exam Neurological: Present alert, oriented X3 and moving all extremities; Absent altered mental status Assessment and Plan *Assessment and plan (1) (HFpEF) heart failure with preserved ejection fraction: Status: Acute Qualifiers: Heart failure chronicity: chronic Qualified Code(s): I50.32 - Chronic diastolic (congestive) heart failure Category: Medical Code(s): I50.30 - Unspecified diastolic (congestive) heart failure (2) Coronary artery disease: Status: Acute Qualifiers: Coronary Disease-Associated Artery/Lesion type: [place] artery [place] vs. transplanted heart: [place] heart Associated angina: without angina Qualified Code(s): I25.10 - Atherosclerotic heart disease of [place] coronary artery without angina pectoris Category: Medical Code(s): I25.10 - Atherosclerotic heart disease of [place] coronary artery without angina pectoris (3) Hypothyroidism: Status: Acute Qualifiers: Hypothyroidism type: other Qualified Code(s): E03.8 - Other specified hypothyroidism Category: Medical Code(s): E03.9 - Hypothyroidism, unspecified (4) Atrial fibrillation: Status: Acute Qualifiers: Atrial fibrillation type: unspecified chronic Qualified Code(s): I48.20 - Chronic atrial fibrillation, unspecified Category: Medical Code(s): I48.91 - Unspecified atrial fibrillation (5) Hypertension: Status: Acute Qualifiers: Hypertension type: unspecified Qualified Code(s): I10 - Essential (primary) hypertension Category: Medical Code(s): I10 - Essential (primary) hypertension (6) Status post left heart catheterization: Status: Acute Category: Medical Code(s): Z98.890 - Other specified postprocedural states (7) CKD stage 3b, GFR 30-44 ml/min: Status: Acute Category: Medical Code(s): N18.32 - Chronic kidney disease, stage 3b Plan 78-year-old male with history of CABG, CAD, hypothyroid, CKD 3B. Presented for elective left and right heart cath. Discussed case with cardiology, request admission for monitoring overnight due to hematoma development and kidney dysfunction with contrast load. I agreed to admit for further management. Hemodynamically stable at the time of admission. Problems addressed as follows: Heart failure preserved ejection fraction Hypertension CAD History of CABG A-fib -Status post left heart cath. Continue aspirin 81 milligrams daily, Plavix 75 mg daily. Received 2 stents today. - Will discontinue Bumex, potassium chloride, midodrine, fludrocortisone at the request of cardiology. -Continue Lipitor 80 mg nightly -Resume Xarelto 20 mg daily tomorrow -Hematoma in right groin, continue pressure with sandbag. Access was preclosed. Will have repeat CBC, CMP, magnesium in the morning - Hemoglobin normal at 13.8, white count 9.3. Platelets 240. Monitor for bleeding overnight. -Continue empagliflozin 10 mg daily -Monitor on telemetry. Cardiology consulted. If does well overnight, anticipate discharge tomorrow CKD 3: BUN 24, creatinine 2.1. Baseline appears to be 1.8. Slightly above no rmal. Electrolytes stable with sodium 138, potassium 3.5. Gout: Continue allopurinol 100 mg twice daily Hypothyroid: Continue levothyroxine 137 mcg daily GERD: Continue pantoprazole 20 mg daily Full code Xarelto, heparinized in [employer] Cardiac diet
--- NOTE | 2024-04-26 14:05 | PC.NURSE ---
arrived by mariluzer from laboratory sample carrier
[2024-04-26] MEDS: ACETAMINOPHEN 325MG TAB 650 MG PO (16:59)
--- NOTE | 2024-04-26 18:24 | PC.NURSE ---
Pt had RHC and LHC done today through the right groin. In laboratory immunologist pt began to develop a hematoma so pt was admitted to floor with a sandbag on groin for observation overnight. Pt has been laying flat most of shift until dinner time then we began to slowly sit him up for dinner. pt is tolerating this well and hematoma has not gotten any bigger but has started bruising. gauze and tegaderm in place. VSS. Pt medicated with tylenol for neck pain. Pt now resting in bed watching tv. No complaints at this time.
[2024-04-26] MEDS: LACTATED RINGERS 1000ML 1,000 ML 100 ML IV (20:06)
[2024-04-26] MEDS: ATORVASTATIN 40MG TABLET 80 MG PO (20:14)
[2024-04-26] MEDS: ALLOPURINOL 100MG TABLET 100 MG PO (20:14)
[2024-04-27] VITALS: PULSE 70
[2024-04-27 03:45] VITALS: BMI 25.2
[2024-04-27 04:00] VITALS: PULSE 80
--- NOTE | 2024-04-27 04:05 | INFXCTL.NOTE ---
Pt. is alert and orientated x 4. Pt. is on room air. Pt. had a right and left heart cath 04/26/24, right groin site covered with gauze and tegaderm. Pt. has a large hematoma and bruising to right groin site. Pt. had a sandbag on site post cath . sand bag not on site at change of shift. Right groin site soft . Pt. c/o minimal pain to site. 0230, gauze and tegaderm dressing , gauze saturated with sero-sang drainage. Cristofer PENALOZA notified, dressing changed and sand bag placed back on site. Hematoma slightly more swollen but remains soft. Pt. has no co/'s at this time. VSS, personal items and call grey in reach.
--- NOTE | 2024-04-27 06:48 | PC.NURSE ---
Sandbag removed from right groin site. Hematoma with bruisingsame as before. shadow of blood noted on gauze and tegaderm dressing. Pt. sitting up.
[2024-04-27 07:10] LABS: Basophils % 0.6 % (0.1-2.0); Eosinophils # 0.4 K/mm3 (0.0-0.4); Eosinophils % 6.4 % (0.1-12.0); Hematocrit 33.7 % (42.0-52.0); Lymphocytes # 1.6 K/mm3 (0.7-4.5); Lymphocytes % 24.4 % (10-50); Mean Corpuscular HGB Conc 31.8 g/dL (31.8-35.4); Mean Corpuscular Hemoglobin 28.2 pg (27.0-31.2); Mean Corpuscular Volume 88.7 fl (80-94); Mean Platelet Volume 11.3 fl (7.4-10.4); Monocytes # 0.5 K/mm3 (0.1-1.0); Monocytes % 7.5 % (1.7-9.3); Neutrophils # 3.8 K/mm3 (1.8-7.8); Neutrophils % 60.2 % (37.0-80.0); Platelet Count 186 K/mm3 (142-424); Red Cell Distribution Width 16.1 % (11.5-17.5); White Blood Count 6.4 K/mm3 (4.8-10.8)
--- NOTE | 2024-04-27 07:16 | HMH.PHAINT1 ---
Pharmacy Intervention Comments: HOME MEDICATION LIST VERIFIED USING LIST FROM OUTPATIENT PHARMACY AND PT INTERVIEW
[2024-04-27 07:29] LABS: Albumin Level 2.7 g/dl (3.5-5.0); Chloride 102 mmol/L (98-107); Potassium 3.1 mmoL/L (3.5-5.1); Sodium 136 mmol/L (136-145)
[2024-04-27 07:32] LABS: Alanine Aminotransferase 19 U/L (12-78); Albumin/Globulin Ratio 1.2 (1.1-1.8); Alkaline Phosphatase 89 U/L (38-126); Anion Gap 5.1 mEq/L (5-15); Aspartate Amino Transferase 23 U/L (17-59); Bilirubin,Total 0.3 mg/dl (0.2-1.3); Blood Urea Nitrogen 21 mg/dl (9-20); Calcium 8.1 mg/dl (8.4-10.2); Carbon Dioxide 32 mmol/L (22.0-30.0); Creatinine Clearance Estimated 45 mL/min (50-200); Estimated Glomerular Filt Rate 39 ml/min (>60); GFR (African American) 47 ML/MIN (>60); Globulin 2.3 g/dL (1.3-3.2); Glucose 96 mg/dl (74-100)
[2024-04-27 07:43] LABS: Hemoglobin 10.7 g/dL (14.1-18.0)
[2024-04-27 07:53] VITALS: BP 129/68; PULSE 87; RESP 18; TEMP 37.3; O2SAT 97
--- NOTE | 2024-04-27 07:53 | CT_ITS ---
PROCEDURE INFORMATION: Exam: CT Abdomen And Pelvis Without Contrast Exam date and time: 04/27/2024 8:15 AM Age: 78 years old Clinical indication: Other: Anemia after femoral access for cath; Hematoma TECHNIQUE: Imaging protocol: Computed tomography of the abdomen and pelvis without contrast. Radiation optimization: All CT scans at this facility use at least one of these dose optimization techniques: automated exposure control; mA and/or kV adjustment per patient size (includes targeted exams where dose is matched to clinical indication); or iterative reconstruction. COMPARISON: MR CARDIAC WO/W CON 02/20/2024 11:01 AM FINDINGS: Heart: There is calcification of the aortic valve annulus. There is calcification of the mitral valve annulus. Coronary arteries: Coronary artery calcifications may indicate coronary artery disease. Liver: Normal. No mass. Gallbladder and biliary ducts: The gallbladder is unremarkable Pancreas: Normal. No ductal dilation. Spleen: The spleen demonstrates punctate calcifications, consistent with remote granulomatous organism exposure. Adrenal glands: Normal. No mass. Kidneys and ureters: Simple cysts in both kidneys. Largest measures 5.8 cm and is in the left kidney. No follow up recommended Stomach and bowel: Unremarkable. No obstruction. No mucosal thickening. Appendix: Normal appendix Intraperitoneal space: Unremarkable. No free air. No significant fluid collection. Vasculature: Unremarkable. No abdominal aortic aneurysm. Lymph nodes: Unremarkable. No enlarged lymph nodes. Urinary bladder: Unremarkable as visualized. Reproductive: Unremarkable as visualized. Bones/joints: Median sternotomy Soft tissues: Edema and inflammatory changes in the subcutaneous fat anterior to the right hip and right inguinal region consistent with recent procedure.. Two hyperdense masses seen in the right inguinal region: 5.7 x 2.7 cm and 2.5 x 1.8 cm. (series 5 image 120-138. Findings consistent with hematomas. Umbilical hernia contains fat IMPRESSION: 1. Edema and inflammatory changes in the subcutaneous fat anterior to the right hip and right inguinal region consistent with recent procedure.. 2. Two hyperdense masses seen in the right inguinal region: 5.7 x 2.7 cm and 2.5 x 1.8 cm. (series 5 image 120-138. Findings consistent with hematomas. COMMENTS: Consistent with the [employer]'s Incidental Findings Committee white paper (J Am Jessie Radiol 2018): Any incidental renal lesion less than 1 cm or classified as too small to characterize, or any incidental cystic renal lesion characterized as simple-appearing, is likely benign. No follow-up imaging is recommended for these lesions per consensus recommendations based on imaging criteria.
--- NOTE | 2024-04-27 08:02 | EXP.DC.SUM ---
General Admission date:: 04/26/24 Discharge date: 04/27/24 HPI HPI HPI: Mr. Lubin is an 78-year-old male with history of coronary artery disease, angina pectoris. Previous history of coronary artery bypass. Has been having recurrent syncope. Presented with hypertension and suspected renovascular hypertension. Right sided congestive heart failure. Was brought in for elective right and left heart cath today due to patient's symptoms. He was found to have severe left main disease extending into a large dominant circumflex artery. Successful stenting of the left main artery was performed along with successful stenting of the circumflex artery. Found to have patent GUERRA to LAD, patent saphenous vein graft to right coronary and patent saphenous vein graft to a small third obtuse marginal artery. Multiple medication adjustments recommended by cardiology. After procedure however given right and left heart cath being performed and access to the right groin along with patient being on Xarelto, noted to have bleeding and concern for development of hematoma even with Perclose and pressure. Medicine was consulted for admission to monitor overnight with serial labs. Upon arrival to the floor, patient is hemodynamically stable. Lying supine. Alert and oriented x 4. Denies significant pain. No chest pain or shortness of breath. Hospital Course Hospital Course Hospital Course: 78-year-old male with history of CABG, CAD, hypothyroid, CKD 3B. Presented for elective left and right heart cath. Discussed case with cardiology, request admission for monitoring overnight due to hematoma development and kidney dysfunction with contrast load. I agreed to admit for further management. Hemodynamically stable at the time of admission. Did well overnight. Developed small hematoma but no further active signs of bleeding. Hemodynamically stable. Will discharge home with close follow-up with cardiology. Holding Xarelto. Problems addressed as follows: Heart failure preserved ejection fraction Hypertension CAD History of CABG A-fib -Status post left heart cath. Admitted for observation right groin and serial labs. Hematoma appears stable. CT obtained with small 2-1/2 x 5 cm hematoma with smaller 1-1/2 x 2 cm hematoma in right groin. Patient having mild pain. Hemodynamically stable. No shortness of breath or chest pain. Plan to continue aspirin 81 mg daily and Plavix 75 mg daily. Received 2 stents. See cath report for full details. Recommend holding Xarelto given development of hematoma until follow-up with cardiology. Recommend continuing potassium daily as potassium remains low at 3.1. Kidney function at baseline with BUN 21, creatinine 1.7. Okay to resume diuretic once daily for the next 2 days, then hold until follows with cardiology. Continue Lipitor 80 mg nightly. -Did have slight drop in hemoglobin from 13-10. Received a liter of fluid during cath and a liter overnight for gentle hydration. In conjunction with small hematoma, suspect delusional component. Repeat H&H follow-up along with BMP to monitor kidney function and red cell count. -Continue empagliflozin 10 mg daily CKD 3: BUN 24, creatinine 2.1 on admission. BUN 21 and creatinine 1.7 on morning of discharge. Appears to be his baseline. Gout: Continue allopurinol 100 mg twice daily Hypothyroid: Continue levothyroxine 137 mcg daily GERD: Continue pantoprazole 20 mg daily Total time spent on discharge 32 minutes in counseling, documentation, chart review, and direct care with patient. Exam Data for Last 24 hours Vital signs and Labs for Last 24 Hours: Temp Pulse Resp BP Pulse Ox O2 Del Method 99.1 F 87 18 129/68 97 Room Air 04/27/24 07:53 04/27/24 07:53 04/27/24 07:53 04/27/24 07:53 04/27/24 07:53 04/27/24 07:53 Laboratory Results - last 24 hr 04/26/24 08:25: WBC 9.3, RBC 4.85, Hgb 13.8 L, Hct 43.0, MCV 88.7, MCH 28.5, MCHC 32.1, RDW 16.5, Plt Count 240, MPV 11.5 H, Neut % (Auto) 66.0, Lymph % (Auto) 22.4, [place] % (Auto) 5.9, Eos % (Auto) 4.0, Baso % (Auto) 0.8, Neut # (Auto) 6.1, Lymph # (Auto) 2.1, [place] # (Auto) 0.6, Eos # (Auto) 0.4, Baso # (Auto) 0.1, Sodium 138, Potassium 3.5, Chloride 99, Carbon Dioxide 35 H, Anion Gap 7.5, BUN 24 H, Creatinine 2.10 H, Estimated Creat Clear 37, Estimated GFR 31 L, Est GFR ( Amer) 37 L, Glucose 110 H, Calcium 8.9 04/26/24 09:45: ABG O2 Sat (Measured) 67.3 L, POC VBG O2 Sat (Cynthia) 66.9 L 04/26/24 11:02: Activated Clotting Time 238 H* 04/27/24 06:59: WBC 6.4 D, RBC 3.80 L, Hgb 10.7 L D, Hct 33.7 L, MCV 88.7, MCH 28.2, MCHC 31.8, RDW 16.1, Plt Count 186, MPV 11.3 H, Neut % (Auto) 60.2, Lymph % (Auto) 24.4, [place] % (Auto) 7.5, Eos % (Auto) 6.4, Baso % (Auto) 0.6, Neut # (Auto) 3.8, Lymph # (Auto) 1.6, [place] # (Auto) 0.5, Eos # (Auto) 0.4, Baso # (Auto) 0.0, Sodium 136, Potassium 3.1 L, Chloride 102, Carbon Dioxide 32 H, Anion Gap 5.1, BUN 21 H, Creatinine 1.70 H, Estimated Creat Clear 45, Estimated GFR 39 L, Est GFR ( Amer) 47 L D, Glucose 96, Calcium 8.1 L, Total Bilirubin 0.3, AST 23, ALT 19, Alkaline Phosphatase 89, Total Protein 5.0 L, Albumin 2.7 L, Globulin 2.3, Albumin/Globulin Ratio 1.2 I & O for Last 24 hours: Intake & Output 04/24/24 04/25/24 04/26/24 04/27/24 23:59 23:59 23:59 23:59 Intake Total 270 / 910 1410 / 1410 Output Total 250 / 250 150 / 150 Balance 1260 / 1260 Weight 93.44 kg 92.079 kg Constitutional Constitutional: no acute distress, average body habitus, chronically ill appearing and cooperative *Routine HEENT Exam Head: Present normocephalic Eye: Present EOMI and PERRL ENT: Present mucous membranes moist *Routine Neck Exam Neck: Present supple; Absent lymphadenopathy *Routine Respiratory Exam Respiratory: Present CTA bilaterally; Absent rhonchi, wheezes or crackles *Routine Cardiovascular Exam Cardiovascular: Present RRR *Routine Abdominal Exam Abdominal: Present soft and normoactive bowel sounds; Absent tenderness *Routine Rectal Exam Patient deferred: visual exam *Routine Exam Penile: Present circumcision Groin: Present tenderness (rigght inguinal region) Comments: hematoma in right inguinal region ,TTP. *Routine Extremities Exam Extremities: Absent cyanosis, clubbing or edema *Routine Skin Exam Skin: Present intact, warm and ecchymosis (right groin); Absent rash *Routine Neurological Exam Neurological: Present alert, oriented X3 and moving all extremities; Absent altered mental status Results Data Completed and Pending Labs on day of discharge: Labs from last 24 hours 04/27/24 04/26/24 04/26/24 06:59 11:02 09:45 WBC 6.4 D RBC 3.80 L Hgb 10.7 L D Hct 33.7 L MCV 88.7 MCH 28.2 MCHC 31.8 RDW 16.1 Plt Count 186 MPV 11.3 H Neut % (Auto) 60.2 Lymph % (Auto) 24.4 [place] % (Auto) 7.5 Eos % (Auto) 6.4 Baso % (Auto) 0.6 Neut # (Auto) 3.8 Lymph # (Auto) 1.6 [place] # (Auto) 0.5 Eos # (Auto) 0.4 Baso # (Auto) 0.0 Activated Clotting Time 238 H* ABG O2 Sat (Measured) 67.3 L POC VBG O2 Sat (Cynthia) 66.9 L Sodium 136 Potassium 3.1 L Chloride 102 Carbon Dioxide 32 H Anion Gap 5.1 BUN 21 H Creatinine 1.70 H Estimated Creat Clear 45 Estimated GFR 39 L Est GFR ( Amer) 47 L D Glucose 96 Calcium 8.1 L Total Bilirubin 0.3 AST 23 ALT 19 Alkaline Phosphatase 89 Total Protein 5.0 L Albumin 2.7 L Globulin 2.3 Albumin/Globulin Ratio 1.2 04/26/24 08:25 WBC 9.3 RBC 4.85 Hgb 13.8 L Hct 43.0 MCV 88.7 MCH 28.5 MCHC 32.1 RDW 16.5 Plt Count 240 MPV 11.5 H Neut % (Auto) 66.0 Lymph % (Auto) 22.4 [place] % (Auto) 5.9 Eos % (Auto) 4.0 Baso % (Auto) 0.8 Neut # (Auto) 6.1 Lymph # (Auto) 2.1 [place] # (Auto) 0.6 Eos # (Auto) 0.4 Baso # (Auto) 0.1 Activated Clotting Time ABG O2 Sat (Measured) POC VBG O2 Sat (Cynthia) Sodium 138 Potassium 3.5 Chloride 99 Carbon Dioxide 35 H Anion Gap 7.5 BUN 24 H Creatinine 2.10 H Estimated Creat Clear 37 Estimated GFR 31 L Est GFR ( Amer) 37 L Glucose 110 H Calcium 8.9 Total Bilirubin AST ALT Alkaline Phosphatase Total Protein Albumin Globulin Albumin/Globulin Ratio DS: Diagnosis Discharge Diagnosis (1) (HFpEF) heart failure with preserved ejection fraction: Status: Acute Code(s): I50.30 - Unspecified diastolic (congestive) heart failure Qualifiers: Heart failure chronicity: chronic Qualified Code(s): I50.32 - Chronic diastolic (congestive) heart failure (2) Coronary artery disease: Status: Acute Code(s): I25.10 - Atherosclerotic heart disease of [place] coronary artery without angina pectoris Qualifiers: Associated angina: without angina Coronary Disease-Associated Artery/Lesion type: [place] artery [place] vs. transplanted heart: [place] heart Qualified Code(s): I25.10 - Atherosclerotic heart disease of [place] coronary artery without angina pectoris (3) Hypothyroidism: Status: Acute Code(s): E03.9 - Hypothyroidism, unspecified Qualifiers: Hypothyroidism type: other Qualified Code(s): E03.8 - Other specified hypothyroidism (4) Atrial fibrillation: Status: Acute Code(s): I48.91 - Unspecified atrial fibrillation Qualifiers: Atrial fibrillation type: unspecified chronic Qualified Code(s): I48.20 - Chronic atrial fibrillation, unspecified (5) Hypertension: Status: Acute Code(s): I10 - Essential (primary) hypertension Qualifiers: Hypertension type: unspecified Qualified Code(s): I10 - Essential (primary) hypertension (6) Status post left heart catheterization: Status: Acute Code(s): Z98.890 - Other specified postprocedural states (7) CKD stage 3b, GFR 30-44 ml/min: Status: Acute Code(s): N18.32 - Chronic kidney disease, stage 3b Meds Home Medications and Allergies Home Medications ?Medication ?Instructions ?Recorded ?Confirmed ?Type allopurinol 100 mg tablet 100 mg PO BID 06/26/23 04/26/24 History aspirin 81 mg tablet,delayed 81 mg PO DAILY 06/26/23 04/26/24 History release atorvastatin 80 mg tablet 80 mg PO HS 06/26/23 04/26/24 History pantoprazole 20 mg tablet,delayed 20 mg PO DAILY 06/26/23 04/26/24 History release rivaroxaban 20 mg tablet (Xarelto) 20 mg PO QPMWITHMEAL 06/26/23 04/26/24 History cyanocobalamin (vitamin B-12) 1,000 mcg PO WEEKLY 08/03/23 04/26/24 History 1,000 mcg capsule ergocalciferol (vitamin D2) 50 mcg 50 mcg PO DAILY 08/03/23 04/26/24 History (2,000 unit) capsule ferrous sulfate 220 mg (44 mg 110 mg PO DAILY 08/03/23 04/26/24 History iron)/5 mL oral elixir folic acid 20 mg capsule 20 mg PO DAILY 08/03/23 04/26/24 History empagliflozin 10 mg tablet 10 mg PO DAILY 90 days #90 tabs 08/31/23 04/26/24 Rx (Jardiance) ergocalciferol (vitamin D2) 1,250 1,250 mcg PO WEEKLY 03/21/24 04/26/24 History mcg (50,000 unit) capsule clopidogrel 75 mg tablet (Plavix) 75 mg PO DAILY #30 tabs 04/26/24 Rx levothyroxine 137 mcg tablet 137 mcg PO DAILY 04/26/24 04/26/24 History New Prescriptions to Start Prescriptions: clopidogrel [Plavix] Gerardo Mccallum Allergies Allergy/AdvReac Type Severity Reaction Status Date / Time No Known Allergies Allergy Verified 04/26/24 08:52 Discharge Plan Disposition Patient Disposition: Home, Self-Care Condition: Fair Follow up Plan Follow up with: Gerardo Mccallum MD [Staff Physician] - 05/02/24 10:00 am Yao Kruse [Primary Care Provider] - 05/03/24 11:00 am Prescriptions/Medication Reconciliation: New clopidogrel [Plavix] 75 mg Tablet 75 mg PO DAILY Qty: 30 6RF Continued Jardiance 10 mg tablet 10 mg PO DAILY 90 Days Qty: 90 2RF atorvastatin 80 mg tablet 80 mg PO HS Patient Comments: TAKE 1 TABLET BY MOUTH EVERY NIGHT allopurinol 100 mg tablet 100 mg PO BID Patient Comments: TAKE 1 TABLET BY MOUTH EVERY MORNING AND 1 TABLET EVERY NIGHT AT BEDTIME aspirin 81 mg tablet,delayed release (DR/EC) 81 mg PO DAILY Patient Comments: TAKE 1 TABLET BY MOUTH EVERY MORNING pantoprazole 20 mg tablet,delayed release (DR/EC) 20 mg PO DAILY Patient Comments: TAKE 1 TABLET BY MOUTH EVERY MORNING folic acid 20 mg capsule 20 mg PO DAILY ferrous sulfate 220 mg (44 mg iron)/5 mL elixir 110 mg PO DAILY cyanocobalamin (vitamin B-12) 1,000 mcg capsule 1,000 mcg PO WEEKLY ergocalciferol (vitamin D2) 50 mcg (2,000 unit) capsule 50 mcg PO DAILY ergocalciferol (vitamin D2) 1,250 mcg (50,000 unit) capsule 1,250 mcg PO WEEKLY Patient Comments: TAKE 1 CAPSULE BY MOUTH EVERY 7 DAYS levothyroxine 137 mcg tablet 137 mcg PO DAILY Patient Comments: TAKE 1 TABLET BY MOUTH DAILY Held Xarelto 20 mg tablet 20 mg PO QPMWITHMEAL Hold Instructions: pending follow-up with cardiology as an outpatient Rx Instructions: must administer with evening meal Discontinued midodrine 10 mg tablet 10 mg PO TID fludrocortisone 0.1 mg tablet 0.1 mg PO BID Qty: 60 2RF bumetanide 1 mg tablet 1 mg PO BID Qty: 180 3RF potassium chloride 20 mEq tablet extended release 20 meq PO BID Qty: 60 2RF Other Ambulatory Orders: Basic Metabolic Panel (Routine) Timeframe: 1 Week Facility: [facility] - Location: Laboratory Ordered By: Gerardo Mccallum Complete Blood Count Auto Diff (Routine) Timeframe: 1 Week Facility: [facility] - Location: Laboratory Ordered By: Gerardo Mccallum Problem Reconciliation Problems Reviewed?: Yes Patient Discharge Instructions ACTIVITY: Continue current activity DIET: continue same diet Patient Instructions: DI for Cardiac Catheterization, Surgical Site Infection, DI for Moderate Sedation Print Language: [place] Providers Primary Care Provider: Yao Kruse [place] Provider: Chan Alves Attending Provider: Chan Alves
[2024-04-27] MEDS: LEVOTHYROXINE 137MCG (0.137MG) TAB 137 MCG PO (08:34)
[2024-04-27] MEDS: ASPIRIN EC 81MG TABLET 81 MG PO (08:34)
[2024-04-27] MEDS: EMPAGLIFLOZIN 10MG TABLET 10 MG PO (08:34)
[2024-04-27] MEDS: ALLOPURINOL 100MG TABLET 100 MG PO (08:34)
[2024-04-27] MEDS: CLOPIDOGREL 75MG TAB 75 MG PO (08:34)
--- NOTE | 2024-04-29 10:53 | SW/DCPLANNER ---
Spoke with patients daughter. Daughter stated that patient is feeling well. Daughter stated that she is aware of patients upcoming appointments but have different times than what i have. Daughter wrote the times down. Daughter stated that they were able to fern picker his new medicine from clinic pharmacy. Daughter stated that they have no concerns or questions at this time. David Miranda
== END 2024-04-27 12:23 | disposition home or self-care (01) ==
LOC: 2ND 13:43
PROVIDERS: Internal Medicine; Admitting Provider Internal Medicine Adolescent Medicine; PCP Internal Medicine; Visit Provider Internal Medicine Adolescent Medicine
DX: I25.10 Atherosclerotic heart disease of native coronary artery without angina pectoris (principal); I12.9 Hypertensive chronic kidney disease with stage 1 through stage 4 chronic kidney disease, or unspecified chronic kidney disease; I50.32 Chronic diastolic (congestive) heart failure; I50.810 Right heart failure, unspecified; R94.31 Abnormal electrocardiogram [ECG] [EKG]; N18.32 Chronic kidney disease, stage 3b; R55 Syncope and collapse; R94.39 Abnormal result of other cardiovascular function study; Z95.5 Presence of coronary angioplasty implant and graft; E03.8 Other specified hypothyroidism; I48.20 Chronic atrial fibrillation, unspecified; Z95.1 Presence of aortocoronary bypass graft; I15.0 Renovascular hypertension
CPT/HCPCS: 36252; 36415; 74176; 80048; 80053; 82810; 85025; 85347; 92928; 93461; 99152; 99153; C1725; C1760; C1769; C1874; C1894; C9600; G0378; J1200; J1644; J2250; J3010; J7120; Q9967

== ENCOUNTER 2024-05-02 08:56 | Outpatient (CLI) | payer MEDICARE, SELFPAY ==
[2024-05-02 09:35] LABS: Basophils # 0.1 K/mm3 (0-0.2); Basophils % 0.8 % (0.1-2.0); Eosinophils # 0.5 K/mm3 (0.0-0.4); Eosinophils % 6.4 % (0.1-12.0); Hematocrit 35.2 % (42.0-52.0); Hemoglobin 11.1 g/dL (14.1-18.0); Lymphocytes # 1.7 K/mm3 (0.7-4.5); Lymphocytes % 22.7 % (10-50); Mean Corpuscular HGB Conc 31.5 g/dL (31.8-35.4); Mean Corpuscular Hemoglobin 28.3 pg (27.0-31.2); Mean Corpuscular Volume 89.8 fl (80-94); Mean Platelet Volume 11.6 fl (7.4-10.4); Monocytes # 0.5 K/mm3 (0.1-1.0); Neutrophils # 4.7 K/mm3 (1.8-7.8); Neutrophils % 62.2 % (37.0-80.0); Platelet Count 227 K/mm3 (142-424); Red Blood Count 3.92 M/mm3 (4.60-6.20); Red Cell Distribution Width 16.6 % (11.5-17.5); White Blood Count 7.5 K/mm3 (4.8-10.8)
[2024-05-02 10:14] LABS: Anion Gap 6.8 mEq/L (5-15); Blood Urea Nitrogen 18 mg/dl (9-20); Carbon Dioxide 30 mmol/L (22.0-30.0); Chloride 103 mmol/L (98-107); Estimated Glomerular Filt Rate 45 ml/min (>60); GFR (African American) 54 ML/MIN (>60); Glucose 95 mg/dl (74-100); Potassium 3.8 mmoL/L (3.5-5.1); Sodium 136 mmol/L (136-145)
== END 2024-05-02 23:59 | disposition home or self-care (01) ==
LOC: LAB 08:57
PROVIDERS: PCP Internal Medicine; Visit Provider Internal Medicine
DX: Z95.5 Presence of coronary angioplasty implant and graft (principal)
CPT/HCPCS: 36415; 80048; 85025

== ENCOUNTER 2024-05-16 15:10 | Outpatient (CLI) | payer MEDICARE, SELFPAY ==
[2024-05-16 15:40] LABS: Basophils # 0.1 K/mm3 (0-0.2); Basophils % 1.2 % (0.1-2.0); Eosinophils # 0.5 K/mm3 (0.0-0.4); Eosinophils % 6.1 % (0.1-12.0); Hematocrit 39.2 % (42.0-52.0); Hemoglobin 12.1 g/dL (14.1-18.0); Lymphocytes # 2.4 K/mm3 (0.7-4.5); Lymphocytes % 32.4 % (10-50); Mean Corpuscular HGB Conc 30.9 g/dL (31.8-35.4); Mean Corpuscular Hemoglobin 28.1 pg (27.0-31.2); Mean Corpuscular Volume 91.2 fl (80-94); Monocytes # 0.5 K/mm3 (0.1-1.0); Monocytes % 7.2 % (1.7-9.3); Neutrophils # 3.9 K/mm3 (1.8-7.8); Neutrophils % 52.6 % (37.0-80.0); Platelet Count 244 K/mm3 (142-424); Red Cell Distribution Width 17.8 % (11.5-17.5); White Blood Count 7.4 K/mm3 (4.8-10.8)
[2024-05-16 16:00] LABS: Chloride 106 mmol/L (98-107); Potassium 4.3 mmoL/L (3.5-5.1); Sodium 135 mmol/L (136-145)
[2024-05-16 16:03] LABS: Anion Gap 8.3 mEq/L (5-15); Blood Urea Nitrogen 16 mg/dl (9-20); Carbon Dioxide 25 mmol/L (22.0-30.0); Estimated Glomerular Filt Rate 45 ml/min (>60); GFR (African American) 54 ML/MIN (>60)
[2024-05-16 16:04] LABS: Glucose 94 mg/dl (74-100)
[2024-05-16 16:13] LABS: NT Pro Brain Natriuretic Pep. 1160 pg/mL (0-450)
== END 2024-05-16 23:59 | disposition home or self-care (01) ==
LOC: LAB 15:11
PROVIDERS: PCP Internal Medicine; Visit Provider Physician Assistant
DX: I11.0 Hypertensive heart disease with heart failure (principal); I50.32 Chronic diastolic (congestive) heart failure; E87.6 Hypokalemia; R42 Dizziness and giddiness; R53.1 Weakness
CPT/HCPCS: 36415; 80048; 83880; 85025

== ENCOUNTER 2024-07-27 09:57 | Observation (INO) | payer MEDICARE, SELFPAY ==
[2024-07-27] VITALS (16 sets, daily range): BP systolic 102–191; BP diastolic 52–160; PULSE 53–67; RESP 14–22; TEMP 36.6–36.9; O2SAT 94–99; BMI 25.6
--- NOTE | 2024-07-27 10:00 | ECG_ITS ---
APPROVED REPORT Exam: Resting ECG HR:61 bpm ECG Measurements Heart Rate 61 AXES NC 152 P 43 QRSd 146 QRS -78 QT 488 T 67 QTc 490 Conclusion SINUS RHYTHM LEFT AXIS DEVIATION [QRS AXIS < -30] RIGHT BUNDLE BRANCH BLOCK [120+ ms QRS DURATION, UPRIGHT V1, 40+ ms S IN I/aVL/V4/V5/V6] No STEMI Electronically signed by : NATANAEL BARRETO, 07/27/2024 14:38:31
--- NOTE | 2024-07-27 10:13 | XR_ITS ---
PROCEDURE INFORMATION: Exam: XR Chest Exam date and time: 07/27/2024 10:26 AM Age: 78 years old Clinical indication: Cough; Additional info: Cough, general weakness TECHNIQUE: Imaging protocol: Radiologic exam of the chest. Views: 1 view. COMPARISON: CR XR CHEST 2V 06/26/2023 3:14 PM FINDINGS: Lungs: Unremarkable. No consolidation. Pleural spaces: Unremarkable. No pleural effusion. No pneumothorax. Heart/Mediastinum: Unremarkable. No cardiomegaly. Bones/joints: Median sternotomy wires. IMPRESSION: No acute findings.
--- OUTSIDE RECORDS SUMMARY | 2024-07-27 10:18 | XMS_ITS | Continuity of Care Document ---
Author Organization [facility] Phone Care Team Providers Care Web Site Administrator Name Role Phone ALEX JOHNSON Primary Attending BALDO DIAZ Unavailable ALEX JOHNSON Admitting ALEX JOHNSON Primary Care ALLERGIES AND ADVERSE REACTIONS ALLERGIES AND ADVERSE REACTIONS Code System Allergy Substance Adverse Reaction Date Reaction (Severity) Comment Status Reported By Updated By No Known Allergies [id number] on July 10, 2024 4:58:47 PM UTC RESULTS Patient: PAM SANTAMARIA Date of : December 07 7 LABORATORY RESULTS ORDER 200: THYROID STIMULATI NG HORMONE (LOINC: 3016-3) ORDER DATE: July 24, 2024 4:19:00 PM UTC Specimen Source: Serum/Plasm a Specimen Type: Acellular blo od (serum or plasma) specimen PERFORMING LAB: [address] [id number] Result Comment: Final Result Date: July 24, 2024 4:54:00 PM UTC (TECH: KSM) LOINC TEST FLAG RESULT REFERENCE RANGE UPDA FLORENTINO BY 3016-3 Thyrotropin [Units/volume] in Serum or Plasma N 0.88 mIU/mL 0.34 mIU/mL - 4.80 mIU/mL July 24, 2024 4:54:00 PM UTC (TECH: KSM) ORDER 300: T4 FREE (LOINC: 3 024-7) ORDER DATE: July 24, 2024 4:19:00 PM UTC Specimen Source: Serum/Plasm a Specimen Type: Acellular blo od (serum or plasma) specimen PERFORMING LAB: [address] [id number] Result Comment: Final Result Date: July 24, 2024 4:54:00 PM UT (TECH: [employer]) LOINC TEST FLAG RESULT REFERENCE [place] 3024-7 Thyroxine (T4) free [Mass/volume] in Serum or Plasma H 1.62 ng/dl 0.76 ng/dl - 1.46 ng/dl July 24, 2024 4:54:00 PM [facility] (TECH: [employer]word) ORDER 400: COMP METABOLIC PA NAVIN (LOINC: 17543-4) ORDER DATE: July 24, 2024 4:19:00 PM UT Specimen Source: Serum/Plasm a Specimen Type: Acellular blo od (serum or plasma) specimen PERFORMING LAB: [address] [id number] Result Comment: Final Result Date: July 24, 2024 4:54:00 PM UT (TECH: Placeword) [facility] TEST FLAG RESULT REFERENCE RANGE UPDA FLORENTINO BY 2951-2 Sodium [Moles/volume ] in Serum or Plasma N 138 mmol/L 136 mmol/L - 145 mmol/L July 24, 2024 4:54:00 PM [facility] (TECH: [employer]) 2823-3 Potassium [Moles/volume] in Serum or Plasma N 3.9 mmol/L 3.5 mmol/L - 5.1 mmol/L July 24, 2024 4:54:00 PM [facility] (TECH: [employer]) 2075-0 Chloride [Moles/volu me] in Serum or Plasma N 105 mmol/L 98 mmol/L - 107 mmol/L July 24, 2024 4:54:00 PM UT (TECH: [employer]) 8-9 Carbon dioxide, tota l [Moles/volume] in Serum or Plasma N 28 mmol/L 21 mmol/L - 32 mmol/L July 24, 2024 4:54:00 PM [place] (TECH: Placeword) 57819-1 Anion gap 3 in Serum or Plasma N 5.0 July 24, 2024 4:54:00 PM [place] (TECH: [employer]) 2345-7 Glucose [Mass/volume ] in Serum or Plasma H 114 mg/dL 70 mg/dL - 110 mg/dL July 24, 2024 4:54:00 PM UTC (TECH: [employer]word) 3094-0 Urea nitrogen [Mass/volume] in Serum or Plasma N 14 mg/dL 7 mg/dL - 18 mg/dL July 24, 2024 4:54:00 PM [facility] (TECH: [employer]) 2160-0 Creatinine [Mass/volume] in Serum or Plasma H 1.9 mg/dL 0.8 mg/dL - 1.3 mg/dL July 24, 2024 4:54:00 PM [facility] (TECH: [employer]) 3097-3 Urea nitrogen/Creatinine [Mass Ratio] in Serum or Plasma L 7.4 9 - July 24, 2024 4:54:00 PM [facility] (TECH: Placeword) 09242-0 Glomerular filtratio n rate/1.73 sq M.predicted by Creatinine-based formula (MDRD) L 35 mL/min >60 July 24, 2024 4:54:00 PM [facility] (TECH: Placeword) 20062-2 Osmolality of Serum or Plasma by calculated by sum of electrolytes N 288 mosm/kg 275 mosm/kg - 301 mosm/kg July 24, 2024 4:54:00 PM [facility] (TECH: Placeword) 2885-2 Protein [Mass/volume ] in Serum or Plasma L 5.9 g/dL 6.4 g/dL - 8.2 g/dL July 24, 2024 4:54:00 PM [facility] (TECH: [employer]) 1751-7 Albumin [Mass/volume ] in Serum or Plasma L 2.6 g/dL 3.4 g/dL - 5.0 g/dL July 24, 2024 4:54:00 PM [facility] (TECH: Placeword) 82032-9 Calcium [Mass/volume ] in Serum or Plasma N 9.2 mg/dL 8.5 mg/dL - 10.1 mg/dL July 24, 2024 4:54:00 PM [facility] (TECH: Placeword) 51766-2 Calcium [Mass/volume ] corrected for total protein in Serum or Plasma H 10.3 mg/dL 8.5 mg/dL - 10.1 mg/dL July 24, 2024 4:54:00 PM [facility] (TECH: Placeword) 1975-2 Bilirubin.total [Mass/volume] in Serum or Plasma N 0.4 mg/dL 0.4 mg/dL - 1.5 mg/dL July 24, 2024 4:54:00 PM [facility] (TECH: [employer]word) 1920-8 Aspartate aminotransferase [Enzymatic activity/volume] in Serum or Plasma N 18 U/L 15 U/L - 37 U/L July 24, 2024 4:54:00 PM UTC (TECH: [employer]word) 1742-6 Alanine aminotransferase [Enzymatic activity/volume] in Serum or Plasma N 21 U/L 12 U/L - 78 U/L July 24, 2024 4:54:00 PM UTC (TECH: Placeword) 6768-6 Alkaline phosphatase [Enzymatic activity/volume] in Serum or Plasma N 108 U/L July 24, 2024 4:54:00 PM UTC (TECH: KSSnipi) ORDER 500: CBC AUTO W DIFF ( LOINC: 26856-6) ORDER DATE: July 24, 2024 4:19:00 PM UTC Specimen Source: Whole Blood Specimen Type: Whole blood s ample PERFORMING LAB: [address] [id number] Result Comment: Final Result Date: July 24, 2024 4:36:00 PM UTC (TECH: KSSnipi) LOINC TEST FLAG RESULT REFERENCE RANGE UPDA FLORENTINO BY 6690-2 Leukocytes [#/volume ] in Blood by Automated count L 4.1 10^3/uL 4.5 10^3/uL - 11.5 10^3/uL July 24, 2024 4:36:00 PM UTC (TECH: InfinancialsM) 789-8 Erythrocytes [#/volu me] in Blood by Automated count N 4.81 10^6/uL 4.25 10^6/uL - 5.57 10^6/uL July 24, 2024 4:36:00 PM UTC (TECH: KSM) 718-7 Hemoglobin [Mass/volume] in Blood L 13.0 g/dL 13.5 g/dL - 17.2 g/dL July 24, 2024 4:36:00 PM UTC (TECH: InfinancialsM) 64398-1 Hematocrit [Volume Fraction] of Blood L 41.6 % 42.0 % - 52.0 % July 24, 2024 4:36:00 PM UTC (TECH: KSM) 787-2 Erythrocyte mean corpuscular volume [Entitic volume] by Automated count N 86.5 fl 80 fl - 95 fl July 24, 2024 4:36:00 PM UTC (TECH: InfinancialsM) 62846-9 Erythrocyte mean corpuscular hemoglobin [Entitic mass] in Blood from [place]etus by Automated count N 27.0 pg 27.0 pg - 34.0 pg July 24, 2024 4:36:00 PM UTC (TECH: Placeword) 99626-9 Erythrocyte mean corpuscular hemoglobin concentration [Mass/volume] in Blood from Fetus by Automated count L 31.3 g/dL 32.0 g/dL - 36.0 g/dL July 24, 2024 4:36:00 PM UTC (TECH: Placeword) 82776-8 Platelets [#/volume] in Blood N 194 10^3/uL 150 10^3/uL - 450 10^3/uL July 24, 2024 4:36:00 PM UTC (TECH: Placeword) 93047-0 Erythrocyte distribution width [Ratio] H 17.0 % 12.3 % - 15.1 % July 24, 2024 4:36:00 PM UTC (TECH: Placeword) 93595-4 Platelet mean volume [Entitic volume] in Blood by Automated count H 11.3 fl 7.4 fl - 10.4 fl July 24, 2024 4:36:00 PM UTC (TECH: Placeword) 38888-4 Granulocytes/100 leukocytes in Blood by Automated count N 59.1 % 40 % - 75 % July 24, 2024 4:36:00 PM UTC (TECH: Placeword) 736-9 Lymphocytes/100 leukocytes in Blood by Automated count N 27.0 % 15 % - 57 % July 24, 2024 4:36:00 PM UTC (TECH: Placeword) 5905-5 Monocytes/100 leukocytes in Blood by Automated count N 7.8 % 4.0 % - 12.0 % July 24, 2024 4:36:00 PM UTC (TECH: Placeword) 713-8 Eosinophils/100 leukocytes in Blood by Automated count H 4.9 % 0.0 % - 4.0 % July 24, 2024 4:36:00 PM UTC (TECH: Placeword) 706-2 Basophils/100 leukocytes in Blood by Automated count N 1.0 % 0.0 % - 1.0 % July 24, 2024 4:36:00 PM UTC (TECH: Placeword) 23892-6 Immature granulocyte s [#/volume] in Blood N 0.2 % 0.0 % - 0.8 % July 24, 2024 4:36:00 PM UTC (TECH: Placeword) 11783-1 Granulocytes [#/volu me] in Blood by Automated count N 2.43 10^3/uL July 24, 2024 4:36:00 PM UTC (TECH: Placeword) 731-0 Lymphocytes [#/volum e] in Blood by Automated count N 1.11 10^3/uL July 24, 2024 4:36:00 PM UTC (TECH: Placeword) 742-7 Monocytes [#/volume] in Blood by Automated count N 0.32 10^3/uL July 24, 2024 4:36:00 PM UTC (TECH: Placeword) 711-2 Eosinophils [#/volum e] in Blood by Automated count N 0.20 10^3/uL July 24, 2024 4:36:00 PM UTC (TECH: Placeword) 704-7 Basophils [#/volume] in Blood by Automated count N 0.04 10^3/uL July 24, 2024 4:36:00 PM UTC (TECH: Placeword) 59249-8 Immature granulocyte s [#/volume] in Blood N 0.01 10^3/uL July 24, 2024 4:36:00 PM UTC (TECH: Placeword) 53849-9 Manual differential performed [Presence] in Blood N NO July 24, 2024 4:36:00 PM UTC (TECH: [employer]word) LABORATORY NARRATIVE RESULTS Information is not available RADIOLOGY RESULTS Information is not available PATHOLOGY NARRATIVE RESULTS Information is not available MICROBIOLOGY RESULTS No Micro Labs/Results Exist for Patient BLOOD ADMIN RESULTS Information is not available MEDICATIONS HOME MEDICATIONS Status RXNORM NDC Medication Dose Route Frequency Dates Comments Reported By Updated By Drug Treatment Unknown DISCHARGE MEDICATIONS Status RXNORM NDC Medication Dose Route Frequency Dates Comments Physician Updated By No Discharge Medication Info rmation Available INPATIENT MEDICATIONS Status RXNORM NDC Medication Dose Route Frequency Rat e Quantity Dates Comments Physician Updated By No Inpatient Medication Info rmation Available SOCIAL HISTORY SOCIAL HISTORY SNOMED-CT Social History Element Description Effective Dates Offered Cessation Comment UpdatedBy [id number] Historical Tobacco smoking status Never Smoked [id number] on July 09, 2024 7:34:28 PM [facility] SOCIAL HISTORY - Gender Sex: Male SOCIAL HISTORY - Status : status i nformation is not available Intention in Next Year: intention information is not available SOCIAL HISTORY - Sexual Behavior Sexual Orientation Gender Identity SNOMED-CT Description SNO MED -CT Description Activity Level No of Partners Partner Type UpdatedBy Information is not available HEALTH CONCERNS Problems Concern Status Health Concern problem infor mation not available. Smoking Status Status Years Used Consumed packs p er day Health Concern smoking histo ry information not available. Family History Concern Status Health Concern family histor y information not available. ENCOUNTERS ENCOUNTER INFORMATION Reason for Visit R53.82 Admission July 24, 2024 4:09:00 PM [facility] [address] [facility] [id number] Discharge July 24, 2024 4:09:00 PM [facility] DISC HARGED TO HOME OR SELF CARE ENCOUNTER DIAGNOSES Notes information is not stella ilable. Code System Diagnosis Onset Date Diagnosis information is not available. 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 Status Start Date End Date Update d By EMILY BLAND MD Referring normal July 24 4:00:00 AM [facility] July 24, 2024 4:09:00 PM [facility] [id number] on July 25, 2024 1:50:59 PM [facility] RADHA GENAO Referring normal July 24 4:00:00 AM [facility] July 24, 2024 4:00:00 AM [facility] [id number] on July 25, 2024 1:50:59 PM [facility] ELIZABETH CURRAN PCP normal July 24, 2024 4:00:00 AM [facility] July 24, 2024 4:09:00 PM [facility] [id number] on July 25, 2024 1:50:59 PM [facility] ELIZABETH CURRAN Referring normal July 24, 2024 4:00:00 AM [facility] July 24, 2024 4:00:00 AM [facility] [id number] on July 25, 2024 1:50:59 PM [facility] ELIZABETH CURRAN Attending normal July 24, 2024 4:00:00 AM [facility] July 24, 2024 4:09:00 PM [facility] [id number] on July 25, 2024 1:50:59 PM [facility] ELIZABETH CURRAN Admitting normal July 24, 2024 4:00:00 AM [facility] July 24, 2024 4:09:00 PM [facility] [id number] on July 25, 2024 1:50:59 PM [facility]
--- OUTSIDE RECORDS SUMMARY | 2024-07-27 10:18 | XMS_ITS | Continuity of Care Document ---
Author Organization [facility] Phone Care Team Providers Care Production Welding Supervisor Name Role Phone KAYLYN BIRCH Primary Attending [phone] KAYLYN BIRCH Admitting ALEX JOHNSON Primary Care KAYLYN BIRCH Unavailable ALLERGIES AND ADVERSE REACTIONS ALLERGIES AND ADVERSE REACTIONS Code System Allergy Substance Adverse Reaction Date Reaction (Severity) Comment Status Reported By Updated By No Known Allergies [id number] on July 10, 2024 4:58:47 PM UTC ASSESSMENTS Acute nontraumatic kidney injury ; Orthostatic hypotension ; PROBLEMS PATIENT PROBLEMS Code Description/Comments Category Status Upda florentino By [id number] Acute nontraumatic kidney injury active [id number] on July 09, 2024 11:54:51 PM UTC [id number] Orthostatic hypotension active e [id number] on July 09, 2024 11:55:15 PM UTC RESULTS Patient: PAM SANTAMARIA Date of : December 07 7 LABORATORY RESULTS ORDER 200: TROPONIN QUANT (L OINC: 23449-6) ORDER DATE: July 09, 2024 7:06:00 PM UTC Specimen Source: Serum/Plasm a Specimen Type: Acellular blo od (serum or plasma) specimen PERFORMING LAB: [facility] [address] [facility] [id number] Result Comment: Final Result Date: July 09, 2024 7:39:00 PM UTC (TECH: MRB) LOINC TEST FLAG RESULT [place] [address]-5 Troponin I.cardiac panel - Serum or Plasma by High sensitivity method N 9 ng/L 0 ng/L - 76 ng/L July 09, 2024 7:39:00 PM UTC (TECH: MRB) ORDER 300: CBC AUTO W DIFF ( LOINC: 92017-7) ORDER DATE: July 09, 2024 7:06:00 PM UTC Specimen Source: Whole Blood Specimen Type: Whole blood s ample PERFORMING LAB: [address] [id number] Result Comment: Final Result Date: July 09, 2024 7:19:00 PM UTC (TECH: MRB) LOINC TEST FLAG RESULT REFERENCE RANGE UPDA FLORENTINO BY 6690-2 Leukocytes [#/volume] in Blood by Automated count N 7.4 10^3/uL 4.5 10^3/uL - 11.5 10^3/uL July 09, 2024 7:19:00 PM UTC (TECH: MRB) 789-8 Erythrocytes [#/volume] in Blood by Automated count N 5.33 10^6/uL 4.25 10^6/uL - 5.57 10^6/uL July 09, 2024 7:19:00 PM UTC (TECH: MRB) 718-7 Hemoglobin [Mass/volume] in Blood N 14.6 g/dL 13.5 g/dL - 17.2 g/dL July 09, 2024 7:19:00 PM UTC (TECH: MRB) 78886-0 Hematocrit [Volume Fraction] of Blood N 46.0 % 42.0 % - 52.0 % July 09, 2024 7:19:00 PM UTC (TECH: MRB) 787-2 Erythrocyte mean corpuscular volume [Entitic volume] by Automated count N 86.3 fl 80 fl - 95 fl July 09, 2024 7:19:00 PM UTC (TECH: MRB) 81463-9 Erythrocyte mean corpuscular hemoglobin [Entitic mass] in Blood from Fetus by Automated count N 27.4 pg 27.0 pg - 34.0 pg July 09, 2024 7:19:00 PM UTC (TECH: MRB) 59525-2 Erythrocyte mean corpuscular hemoglobin concentration [Mass/volume] in Blood from Fetus by Automated count L 31.7 g/dL 32.0 g/dL - 36.0 g/dL July 09, 2024 7:19:00 PM UTC (TECH: MRB) 31543-7 Platelets [#/volume] in Blood N 261 10^3/uL 150 10^3/uL - 450 10^3/uL July 09, 2024 7:19:00 PM UTC (TECH: MRB) 07311-7 Erythrocyte distribution width [Ratio] H 17.6 % 12.3 % - 15.1 % July 09, 2024 7:19:00 PM UTC (TECH: MRB) 74576-5 Platelet mean volume [Entitic volume] in Blood by Automated count H 11.3 fl 7.4 fl - 10.4 fl July 09, 2024 7:19:00 PM UTC (TECH: MRB) 34558-3 Granulocytes/100 leukocytes in Blood by Automated count N 67.2 % 40 % - 75 % July 09, 2024 7:19:00 PM UTC (TECH: MRB) 736-9 Lymphocytes/100 leukocytes in Blood by Automated count N 24.2 % 15 % - 57 % July 09, 2024 7:19:00 PM UTC (TECH: MRB) 5905-5 Monocytes/100 leukocytes in Blood by Automated count N 7.2 % 4.0 % - 12.0 % July 09, 2024 7:19:00 PM UTC (TECH: MRB) 713-8 Eosinophils/100 leukocytes in Blood by Automated count N 0.7 % 0.0 % - 4.0 % July 09, 2024 7:19:00 PM UTC (TECH: MRB) 706-2 Basophils/100 leukocytes in Blood by Automated count N 0.3 % 0.0 % - 1.0 % July 09, 2024 7:19:00 PM UTC (TECH: MRB) 57592-2 Immature granulocytes [#/volume] in Blood N 0.4 % 0.0 % - 0.8 % July 09, 2024 7:19:00 PM UTC (TECH: MRB) 78939-3 Granulocytes [#/volume] in Blood by Automated count N 4.94 10^3/uL July 09, 2024 7:19:00 PM UTC (TECH: MRB) 731-0 Lymphocytes [#/volume] in Blood by Automated count N 1.78 10^3/uL July 09, 2024 7:19:00 PM UTC (TECH: MRB) 742-7 Monocytes [#/volume] in Blood by Automated count N 0.53 10^3/uL July 09, 2024 7:19:00 PM UTC (TECH: MRB) 711-2 Eosinophils [#/volume] in Blood by Automated count N 0.05 10^3/uL July 09, 2024 7:19:00 PM UTC (TECH: MRB) 704-7 Basophils [#/volume] in Blood by Automated count N 0.02 10^3/uL July 09, 2024 7:19:00 PM UTC (TECH: MRB) 50372-5 Immature granulocytes [#/volume] in Blood N 0.03 10^3/uL July 09, 2024 7:19:00 PM UTC (TECH: MRB) 34254-8 Manual differential performed [Presence] in Blood N NO July 09, 2024 7:19:00 PM UT (TECH: MRB) ORDER 400: COMP METABOLIC PA NAVIN (LOINC: 23100-5) ORDER DATE: July 09, 2024 7:06:00 PM UTC Specimen Source: Serum/Plasm a Specimen Type: Acellular blo od (serum or plasma) specimen PERFORMING LAB: [address] [id number] Result Comment: Final Result Date: July 09, 2024 7:44:00 PM UT (TECH: MRB) LOINC TEST FLAG RESULT REFERENCE RANGE UPDA FLORENTINO BY 2951-2 Sodium [Moles/volume ] in Serum or Plasma L 134 mmol/L 136 mmol/L - 145 mmol/L July 09, 2024 7:44:00 PM UT (TECH: MRB) 2823-3 Potassium [Moles/volume] in Serum or Plasma N 4.8 mmol/L 3.5 mmol/L - 5.1 mmol/L July 09, 2024 7:44:00 PM UT (TECH: MRB) 2075-0 Chloride [Moles/volume] in Serum or Plasma N 100 mmol/L 98 mmol/L - 107 mmol/L July 09, 2024 7:44:00 PM UT (TECH: MRB) 8-9 Carbon dioxide, tota l [Moles/volume] in Serum or Plasma N 28 mmol/L 21 mmol/L - 32 mmol/L July 09, 2024 7:44:00 PM UTC (TECH: MRB) 24783-8 Anion gap 3 in Serum or Plasma N 6.0 July 09, 2024 7:44:00 PM UT (TECH: MRB) 2345-7 Glucose [Mass/volume ] in Serum or Plasma N 98 mg/dL 70 mg/dL - 110 mg/dL July 09, 2024 7:44:00 PM UTC (TECH: MRB) 3094-0 Urea nitrogen [Mass/volume] in Serum or Plasma H 38 mg/dL 7 mg/dL - 18 mg/dL July 09, 2024 7:44:00 PM UTC (TECH: MRB) 2160-0 Creatinine [Mass/volume] in Serum or Plasma H 2.6 mg/dL 0.8 mg/dL - 1.3 mg/dL July 09, 2024 7:44:00 PM UTC (TECH: MRB) 3097-3 Urea nitrogen/Creatinine [Mass Ratio] in Serum or Plasma N 14.6 9 - 21 July 09, 2024 7:44:00 PM UTC (TECH: MRB) 28234-9 Glomerular filtratio n rate/1.73 sq M.predicted by Creatinine-based formula (MDRD) L 24 mL/min >60 July 09, 2024 7:44:00 PM UT (TECH: MRB) 79217-2 Osmolality of Serum or Plasma by calculated by sum of electrolytes N 288 mosm/kg 275 mosm/kg - 301 mosm/kg July 09, 2024 7:44:00 PM UT (TECH: MRB) 2885-2 Protein [Mass/volume ] in Serum or Plasma N 7.2 g/dL 6.4 g/dL - 8.2 g/dL July 09, 2024 7:44:00 PM UT (TECH: MRB) 1751-7 Albumin [Mass/volume ] in Serum or Plasma L 3.2 g/dL 3.4 g/dL - 5.0 g/dL July 09, 2024 7:44:00 PM UT (TECH: MRB) 83813-1 Calcium [Mass/volume ] in Serum or Plasma H 10.2 mg/dL 8.5 mg/dL - 10.1 mg/dL July 09, 2024 7:44:00 PM UTC (TECH: MRB) 83547-8 Calcium [Mass/volume ] corrected for total protein in Serum or Plasma H 10.8 mg/dL 8.5 mg/dL - 10.1 mg/dL July 09, 2024 7:44:00 PM UTC (TECH: [employer] 1975-2 Bilirubin.total [Mass/volume] in Serum or Plasma N 0.5 mg/dL 0.4 mg/dL - 1.5 mg/dL July 09, 2024 7:44:00 PM UTC (TECH: [employer] 1920-8 Aspartate aminotransferase [Enzymatic activity/volume] in Serum or Plasma N 27 U/L 15 U/L - 37 U/L July 09, 2024 7:44:00 PM UTC (TECH: MRB) 1742-6 Alanine aminotransferase [Enzymatic activity/volume] in Serum or Plasma N 20 U/L 12 U/L - 78 U/L July 09, 2024 7:44:00 PM UTC (TECH: MRB) 6768-6 Alkaline phosphatase [Enzymatic activity/volume] in Serum or Plasma N 107 U/L July 09, 2024 7:44:00 PM UTC (TECH: [employer] ORDER 500: THYROID STIMULATI NG HORMONE (LOINC: 3016-3) ORDER DATE: July 09, 2024 7:06:00 PM UT Specimen Source: Serum/Plasm a Specimen Type: Acellular blo od (serum or plasma) specimen PERFORMING LAB: [address] [id number] Result Comment: Final Result Date: July 09, 2024 7:44:00 PM UT (TECH: [employer]) LOINC TEST FLAG RESULT REFERENCE RANGE UPDA FLORENTINO BY 3016-3 Thyrotropin [Units/volume] in Serum or Plasma N 0.56 mIU/mL 0.34 mIU/mL - 4.80 mIU/mL July 09, 2024 7:44:00 PM UT (TECH: [employer]) ORDER 600: MAGNESIUM (LOINC: 64709-7) ORDER DATE: July 09, 2024 7:06:00 PM UTC Specimen Source: Serum/Plasm a Specimen Type: Acellular blo od (serum or plasma) specimen PERFORMING LAB: [address] [id number] Result Comment: Final Result Date: July 09, 2024 7:44:00 PM UTC (TECH: MRB) LOINC TEST FLAG RESULT [place] [address]-9 Magnesium [Mass/volume] in Serum or Plasma N 1.9 mg/dL 1.8 mg/dL - 2.4 mg/dL July 09, 2024 7:44:00 PM UTC (TECH: MRB) ORDER 700: UA AND MICRO/CULT IF INDICATED (LOINC: 39811-7) ORDER DATE: July 09, 2024 7:19:00 PM UTC Specimen Source: URINE Specimen Type: Urine specime n PERFORMING LAB: [address] [id number] Result Comment: Final Result Date: July 09, 2024 8:16:00 PM UTC (TECH: HC) LOINC TEST FLAG RESULT REFERENCE RANGE UPDA FLORENTINO BY 5778-6 Color of Urine N yellow YELLOW July 8:16:00 PM UTC (TECH: HC) 5767-9 Appearance of Urine N SL.HAZY CLEAR July 09, 2024 8:16:00 PM UTC (TECH: HC) 5792-7 Glucose [Mass/volume] in Urine by Test strip N 1000 NORMAL July 09, 2024 8:16:00 PM UTC (TECH: HC) 80216-1 Bilirubin.total [Mass/volume] in Urine by Automated test strip N NEGATIVE NEGATIVE July 09, 2024 8:16:00 PM UTC (TECH: HC) 5797-6 Ketones [Mass/volume] in Urine by Test strip N NEGATIVE NEGATIVE July 09, 2024 8:16:00 PM UTC (TECH: HC) 2965-2 Specific gravity of Urine N 1.015 1.005 - 1.035 July 09, 2024 8:16:00 PM UTC (TECH: HC) 30287-3 Erythrocytes [#/volume] in Urine by Automated test strip N 10 (TRACE) /mcL NEGATIVE July 09, 2024 8:16:00 PM UTC (TECH: HC) 23978-1 pH of Urine by Automated test strip N 5.00 5.0 - 7.5 July 09, 2024 8:16:00 PM UTC (TECH: HC) 48054-5 Protein [Presence] in Urine by Test strip N 500 (3+) mg/dL NEGATIVE July 09, 2024 8:16:00 PM UTC (TECH: HC) 91236-0 Urobilinogen [Mass/volume] in Urine by Automated test strip N NORM NORMAL July 09, 2024 8:16:00 PM UTC (TECH: HC) 66463-1 Nitrate [Presence] in Urine N NEGATIVE NEGATIVE July 09, 2024 8:16:00 PM UTC (TECH: HC) 61322-2 Leukocytes [#/volume] in Urine by Test strip N NEGATIVE NEGATIVE July 09, 2024 8:16:00 PM UTC (TECH: HC) 23029-1 Other elements in Urine sediment N NOT REQUIRED July 09, 2024 8:16:00 PM UTC (TECH: HC) 86581-2 Microscopic observation [Identifier] in Urine sediment by Light microscopy N YES July 09, 2024 8:16:00 PM UTC (TECH: HC) 28210-1 Erythrocytes [#/area] in Urine sediment by Microscopy high power field N 0-3 0-3 July 09, 2024 8:16:00 PM UTC (TECH: HC) 5821-4 Leukocytes [#/area] in Urine sediment by Microscopy high power field N RARE NONE SEEN July 09, 2024 8:16:00 PM UTC (TECH: HC) 35067-1 Epithelial cells.squamous [#/area] in Urine sediment by Microscopy high power field N 0-3 NONE SEEN July 09, 2024 8:16:00 PM UTC (TECH: HC) 5769-5 Bacteria [#/area] in Urine sediment by Microscopy high power field N TRACE NONE SEEN July 09, 2024 8:16:00 PM UTC (TECH: HC) 30679-8 Mucus [#/area] in Urine sediment by Microscopy low power field N TRACE NONE SEEN July 09, 2024 8:16:00 PM UTC (TECH: HC) ORDER 2001: CBC AUTO NO DIFF HEMOGRAM (LOINC: 77343-6) ORDER DATE: July 10, 2024 12:00:00 AM UTC Specimen Source: Whole Blood Specimen Type: Whole blood s ample PERFORMING LAB: [address] [id number] Result Comment: Final Result Date: July 10, 2024 10:13:00 AM UTC (TECH: LT) LOINC TEST FLAG RESULT REFERENCE RANGE UPDA FLORENTINO BY 6690-2 Leukocytes [#/volume] in Blood by Automated count N 6.7 10^3/uL 4.5 10^3/uL - 11.5 10^3/uL July 10, 2024 10:13:00 AM UTC (TECH: LT) 789-8 Erythrocytes [#/volume] in Blood by Automated count L 4.23 10^6/uL 4.25 10^6/uL - 5.57 10^6/uL July 10, 2024 10:13:00 AM UTC (TECH: LT) 718-7 Hemoglobin [Mass/volume] in Blood L 11.7 g/dL 13.5 g/dL - 17.2 g/dL July 10, 2024 10:13:00 AM UTC (TECH: LT) 10310-1 Hematocrit [Volume Fraction] of Blood L 36.8 % 42.0 % - 52.0 % July 10, 2024 10:13:00 AM UTC (TECH: LT) 787-2 Erythrocyte mean corpuscular volume [Entitic volume] by Automated count N 87.0 fl 80 fl - 95 fl July 10, 2024 10:13:00 AM UTC (TECH: LT) 16501-9 Erythrocyte mean corpuscular hemoglobin [Entitic mass] in Blood from Fetus by Automated count N 27.7 pg 27.0 pg - 34.0 pg July 10, 2024 10:13:00 AM UTC (TECH: LT) 36044-3 Erythrocyte mean corpuscular hemoglobin concentration [Mass/volume] in Blood from Fetus by Automated count L 31.8 g/dL 32.0 g/dL - 36.0 g/dL July 10, 2024 10:13:00 AM UTC (TECH: LT) 69161-8 Platelets [#/volume] in Blood N 202 10^3/uL 150 10^3/uL - 450 10^3/uL July 10, 2024 10:13:00 AM UTC (TECH: LT) 51701-7 Erythrocyte distribution width [Ratio] H 16.6 % 12.3 % - 15.1 % July 10, 2024 10:13:00 AM UTC (TECH: LT) 80787-4 Platelet mean volume [Entitic volume] in Blood by Automated count H 12.1 fl 7.4 fl - 10.4 fl July 10, 2024 10:13:00 AM UTC (TECH: LT) ORDER 2101: BASIC METABOLIC PANEL (LOINC: 08407-2) ORDER DATE: July 10, 2024 12:00:00 AM UT Specimen Source: Serum/Plasm a Specimen Type: Acellular blo od (serum or plasma) specimen PERFORMING LAB: [address] [id number] Result Comment: Final Result Date: July 10, 2024 10:15:00 AM [facility] (TECH: LT) LOINC TEST FLAG RESULT REFERENCE RANGE UPDA FLORENTINO BY 2951-2 Sodium [Moles/volume] in Serum or Plasma N 139 mmol/L 136 mmol/L - 145 mmol/L July 10, 2024 10:15:00 AM [facility] (TECH: LT) 2823-3 Potassium [Moles/volume] in Serum or Plasma N 4.1 mmol/L 3.5 mmol/L - 5.1 mmol/L July 10, 2024 10:15:00 AM [facility] (TECH: LT) 2075-0 Chloride [Moles/volume] in Serum or Plasma N 107 mmol/L 98 mmol/L - 107 mmol/L July 10, 2024 10:15:00 AM [facility] (TECH: LT) 2027-9 Carbon dioxide, total [Moles/volume] in Serum or Plasma N 25 mmol/L 21 mmol/L - 32 mmol/L July 10, 2024 10:15:00 AM [facility] (TECH: LT) 72332-9 Anion gap 3 in Serum or Plasma N 7.0 July 10, 2024 10:15:00 AM [facility] (TECH: LT) 2345-7 Glucose [Mass/volume] in Serum or Plasma N 104 mg/dL 70 mg/dL - 110 mg/dL July 10, 2024 10:15:00 AM [facility] (TECH: LT) 3094-0 Urea nitrogen [Mass/volume] in Serum or Plasma H 37 mg/dL 7 mg/dL - 18 mg/dL July 10, 2024 10:15:00 AM [facility] (TECH: LT) 2160-0 Creatinine [Mass/volume] in Serum or Plasma H 2.3 mg/dL 0.8 mg/dL - 1.3 mg/dL July 10, 2024 10:15:00 AM [facility] (TECH: LT) 3097-3 Urea nitrogen/Creatinine [Mass Ratio] in Serum or Plasma N 16.1 9 - 21 July 10, 2024 10:15:00 AM [place] (TECH: LT) 08691-6 Glomerular filtration rate/1.73 sq M.predicted by Creatinine-based formula (MDRD) L 28 mL/min >60 July 10, 2024 10:15:00 AM UTC (TECH: LT) 39735-4 Osmolality of Serum or Plasma by calculated by sum of electrolytes N 298 mosm/kg 275 mosm/kg - 301 mosm/kg July 10, 2024 10:15:00 AM UTC (TECH: LT) 14334-2 Calcium [Mass/volume] in Serum or Plasma N 8.8 mg/dL 8.5 mg/dL - 10.1 mg/dL July 10, 2024 10:15:00 AM UTC (TECH: LT) ORDER 2201: MAGNESIUM (LOINC : 97042-2) ORDER DATE: July 10, 2024 12:00:00 AM UTC Specimen Source: Serum/Plasm a Specimen Type: Acellular blo od (serum or plasma) specimen PERFORMING LAB: [address] [id number] Result Comment: Final Result Date: July 10, 2024 10:16:00 AM UT (TECH: LT) LOINC TEST FLAG RESULT [place] [address]-7 Magnesium [Mass/volume] in Serum or Plasma N 1.8 mg/dL 1.8 mg/dL - 2.4 mg/dL July 10, 2024 10:16:00 AM UT (TECH: LT) ORDER 2700: CORTISOL TOTAL ( LOINC: 2143-6) ORDER DATE: July 10, 2024 5:40:00 PM UTC Specimen Source: Serum/Plasm a Specimen Type: Acellular blo od (serum or plasma) specimen PERFORMING LAB: [address] [id number] Result Comment: July 11, 2024 5:10:00 PM UTC Please Note: The reference interval and flagging for Result Comment: July 11, 2024 5:10:00 PM UTC this test is for an AM collection. If this is a PM Result Comment: July 11, 2024 5:10:00 PM UTC collection please use: Cortisol PM: 2.3-11.9 Result Comment: July 11, 2024 5:10:00 PM UTC Performed at: [facility] Result Comment: July 11, 2024 5:10:00 PM [place] [address], [place] [id number] Result Comment: July 11, 2024 5:10:00 PM UT Manager Printing: Brandon Blue PhD, Phone: [phone] Result Comment: July 11, 2024 5:10:00 PM UT Final Result Date: July 11, 2024 9:55:00 AM UT (TECH: LAB) LOINC TEST FLAG RESULT REFERENCE RANGE UPDA FLORENTINO BY 2143-6 Cortisol [Mass/volume] in Serum or Plasma N 8.6 ug/dL 6.2 ug/dL - 19.4 ug/dL July 11 9:55:00 AM UT (TECH: LAB) LABORATORY NARRATIVE RESULTS Information is not available RADIOLOGY RESULTS ORDER 800: CT ABD/PEL NO ORA L OR IV CONTR (LOINC: 10619-1) ORDER DATE: July 09, 2024 7:23:00 PM [facility] PERFORMING LAB: [address] [id number] Final Result Date: July 09 7:46:[address] [place] [address] Name: HINA OROZCO Exam Date: 07/09/2024 : 1945 Age 78 years Gender: M Physician: Facility: [facility] Facility HSV: Outpatient Exam: CT ABD/PEL NO ORAL OR IV CONTR EXAM: CT ABDOMEN PELVIS WITHOUT IV CONTRAST INDICATION: Lower pelvic pain x 3 day. SOB. Surgical history of appendectomy and cholecystectomy. TECHNIQUE: CT of the abdomen and pelvis was performed without IV contrast. Sagittal and coronal reformats. This examination was performed using one or more of the following dose reduction techniques; automated exposure control; adjustment of the mA and kV according to patient's size; iterative reconstruction technique. Unless specified, no imaging follow-up is recommended for incidental findings. IV CONTRAST: None. ORAL CONTRAST: None. COMPARISON: CT Abdomen pelvis without then with IV contrast 08/14/2023 FINDINGS: THE EXAMINATION IS LIMITED BY LACK OF CONTRAST LOWER CHEST: Benign calcified left lower lobe granuloma. Cardiomegaly. 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 LIVER: Benign hepatic calcifications. No obvious acute hepatic abnormality. SPLEEN: Benign splenic calcifications. No obvious acute splenic abnormality. PANCREAS: No peripancreatic inflammatory changes, obvious pancreatic mass or pancreatic ductal dilatation. GALLBLADDER AND BILIARY TRACT: No obvious gallstones or abnormal biliary dilatation. ADRENAL GLANDS: No adrenal nodule. KIDNEYS: No hydronephrosis. 2 small to characterize right renal cortical hypodensities. Multiple left renal cortical hypodensities favorable for cysts. The largest, arising from the lower pole of the left kidney measures approximately 5.8 cm. URINARY BLADDER: Unremarkable. PELVIC ORGANS: Unremarkable prostate gland and seminal vesicles. No pelvic or superficial inguinal mass or adenopathy. No free pelvic fluid. VASCULAR: There aortoiliac atherosclerosis. No abdominal aortic aneurysm. I cannot exclude dissection or assess vessel patency due to lack of vascular contrast. DISTAL ESOPHAGUS, STOMACH AND DUODENUM: Unremarkable. SMALL INTESTINE: No dilated small bowel loops or obvious small bowel wall thickening. Legally authenticated by DINA GRIDER DO 2024-07-09 15:46:53 COLON: No colonic dilatation or obvious wall thickening. APPENDIX: Normal. ABDOMINAL WALL: No obvious acute abdominal wall abnormality. Small fat-containing umbilical hernia does not appear significantly changed. Small bilateral fat-containing inguinal hernias do not appear significantly changed. MUSCULOSKELETAL: Degenerative changes of the lower thoracic and lumbar spine. No obvious acute osseous abnormality. Levoconvex curvature of the lumbar spine. No free air or free fluid. No mesenteric or retroperitoneal adenopathy. IMPRESSION: 1. No evidence for intestinal perforation or obstruction. No obvious acute inflammatory changes. 2. Cardiomegaly. 3. Aortoiliac atherosclerosis. 4. Left Bosniak I/Bosniak II benign renal cyst measuring 5.8 cm. No follow-up imaging is recommended. JACR 2018 Apr; 264-273, Management of the Incidental Renal Mass on CT, [employer] 2020; 814-848, Bosniak Classification of Cystic Renal Masses, Version 2019. 5. Additional findings, as above. Electronically signed by: Marni Tan DO 07/09/2024 04:15 PM EDT Dictated By: MARNI TAN Transcribed By: Transcribed On: 07/09/2024 3:46 PM Electronically signed by: MARNI TAN 07/09/2024 Thank you for referring HINA OROZCO to [facility]. Legally authenticated by DINA GRIDER DO 2024-07-09 15:46:53 PATHOLOGY NARRATIVE RESULTS Information is not available MICROBIOLOGY RESULTS No Micro Labs/Results Exist for Patient BLOOD ADMIN RESULTS Information is not available TREATMENT PLAN DISCHARGE MEDICATIONS Status RXNORM Medication Dose Route Frequency Dates Comments U pdated By Continued 533817 atorvastatin 80 mg tablet 1 TAB ORAL AT BEDTIME Prescri bed: July 10, 2024 5:07:58 PM UT [id number] on July 10, 2024 5:07:58 PM UTC Continued 437383 bumetanide 2 mg tablet 1 TAB ORAL ONCE DAILY Prescri bed: July 10, 2024 5:07:58 PM UT [id number] on July 10, 2024 5:07:58 PM UTC Continued 419579 allopurinol 100 mg tablet 100 MG ORAL TWICE A DAY Prescri bed: July 10, 2024 5:07:58 PM UT [id number] on July 10, 2024 5:07:58 PM UTC Continued 718080 amiodarone 200 m g tablet 1 TAB ORAL BEFORE BREAKFAST Prescri bed: July 10, 2024 5:07:58 PM UT [id number] on July 10, 2024 5:07:58 PM UTC Continued 5544464 Xarelto 20 mg tablet 1 TAB ORAL ONCE DAILY Prescri bed: July 10, 2024 5:07:58 PM UTC [id number] on July 10, 2024 5:07:58 PM UTC Continued 8110103 Jardiance Oral Tablet 10 MG 10 MG ORAL ONCE DAILY Prescri bed: July 10, 2024 5:07:58 PM UTC [id number] on July 10, 2024 5:07:58 PM UTC Continued 516321 pantoprazole 20 mg tablet, delayed release (enteric coated) 1 TAB ORAL ONCE DAILY Prescri bed: July 10, 2024 5:07:58 PM UTC [id number] on July 10, 2024 5:07:58 PM UTC Continued 170721 midodrine 10 mg tablet 1 TAB ORAL THREE TIMES A DAY Prescri bed: July 10, 2024 5:07:58 PM UTC [id number] on July 10, 2024 5:07:58 PM UTC Continued 745182 Fludrocortisone Acetate Oral Tablet 0.1 MG 1 TAB ORAL ONCE DAILY Prescri bed: July 10, 2024 5:07:58 PM [facility] [id number] on July 10, 2024 5:07:58 PM [facility] Continued 229410 clopidogrel (PLAVIX) 75 MG ORAL ONCE DAILY Prescri bed: July 10, 2024 5:07:58 PM UT [id number] on July 10, 2024 5:07:58 PM [facility] Continued 321548 levothyroxine 10 0 mcg tablet 100 MCG ORAL BEFORE BREAKFAST Prescri bed: July 10, 2024 5:07:58 PM [facility] [id number] on July 10, 2024 5:07:58 PM [facility] PATIENT OPEN ORDERS Code System Description Frequency Occurrences Priority Start Date Ordering Physician Updated By Patient open order informati on is not available. SCHEDULED PROCEDURES Code System Description Status Scheduled Date Upd ated By Patient scheduled procedure information is not available. MEDICATIONS HOME MEDICATIONS Status RXNORM NDC Medication Dose Route Frequency Dates Comments Reported By Updated By Active 179180 41776 08265 1 allopurinol 100 mg tablet 100.0 MG ORAL BID Last Dose: [id number] on July 10, 2024 1:16:41 PM [facility] Active 049873 89481 70964 1 amiodarone 200 mg tablet 1.0 TAB ORAL ACB Last Dose: [id number] on July 09, 2024 7:33:33 PM [facility] Active 674213 63480 76211 0 atorvastatin 80 mg tablet 1.0 TAB ORAL BEDTIME Last Dose: [id number] on July 09, 2024 7:33:34 PM [facility] Active 014781 23464 12407 1 bumetanide 2 mg tablet 1.0 TAB ORAL DAILY Last Dose: [id number] on July 10, 2024 1:18:59 PM [facility] Active 099260 78164 64618 0 levothyroxin e 100 mcg tablet 100.0 MCG ORAL ACB Last Dose: [id number] on July 10, 2024 1:17:36 PM [facility] Active 024370 30442 35257 1 midodrine 10 mg tablet 1.0 TAB ORAL TID Last Dose: [id number] on July 10, 2024 1:18:21 PM [facility] Active 268836 82152 29151 0 pantoprazole 20 mg tablet, delayed release (enteric coated) 1.0 TAB ORAL DAILY Last Dose: [id number] on July 10, 2024 1:18:59 PM [facility] Active 2668195 15801 02194 0 potassium chloride 20 mEq Tablet, ER Particles/Cr ystals 1.0 TAB ORAL DAILY Last Dose: [id number] on July 10, 2024 1:18:58 PM [facility] Active 9450428 68923 15243 0 Xarelto 20 mg tablet 1.0 TAB ORAL DAILY Last Dose: [id number] on July 10, 2024 5:07:04 PM UT Active [id number] 28356 78590 1 clopidogrel (PLAVIX) 75.0 MG ORAL DAILY Last Dose: [id number] on July 10, 2024 1:17:16 PM UT Active [id number] 47602 04621 0 Jardiance Oral Tablet 10 MG 10.0 MG ORAL DAILY Last Dose: [id number] on July 10, 2024 3:40:53 PM UT DISCHARGE MEDICATIONS Status RXNORM [facility] Medication Dose Route Frequency Dates Comments Physician Updated By Continue d [id number] 6512 0605 400 atorvastati n 80 mg tablet 1.0 TAB ORAL AT BEDTIME Prescr ibed: July 10, 2024 5:07:5 8 PM [facility] [id number] on July 10, 2024 5:07:58 PM UT Continue d 187601 7141 7053 511 bumetanide 2 mg tablet 1.0 TAB ORAL ONCE DAILY Prescr ibed: July 10, 2024 5:07:5 8 PM [facility] [id number] on July 10, 2024 5:07:58 PM UT Continue d 908839 9084 4057 601 allopurinol 100 mg tablet 100.0 MG ORAL TWICE A DAY Prescr ibed: July 10, 2024 5:07:5 8 PM UT [facility] [id number] on July 10, 2024 5:07:58 PM UT Continue d 193850 7892 7043 711 amiodarone 200 mg tablet 1.0 TAB ORAL BEFORE BREAKFAST Prescr ibed: July 10, 2024 5:07:5 8 PM UT [facility] [id number] on July 10, 2024 5:07:58 PM UTC Continue d 3969157 5242 8057 930 Xarelto 20 mg tablet 1.0 TAB ORAL ONCE DAILY Prescr ibed: July 10, 2024 5:07:5 8 PM UTC [facility] [id number] on July 10, 2024 5:07:58 PM UTC Continue d 0333199 9337 7015 230 Jardiance Oral Tablet 10 MG 10.0 MG ORAL ONCE DAILY Prescr ibed: July 10, 2024 5:07:5 8 PM UTC [facility] [id number] on July 10, 2024 5:07:58 PM UTC Continue d 002453 9023 9001 090 pantoprazol e 20 mg tablet, delayed release (enteric coated) 1.0 TAB ORAL ONCE DAILY Prescr ibed: July 10, 2024 5:07:5 8 PM UTC [facility] [id number] on July 10, 2024 5:07:58 PM UTC Continue d 283929 3148 4087 401 midodrine 10 mg tablet 1.0 TAB ORAL THREE TIMES A DAY Prescr ibed: July 10, 2024 5:07:5 8 PM UTC [facility] [id number] on July 10, 2024 5:07:58 PM UTC Continue d 530375 6909 5703 301 Fludrocorti sone Acetate Oral Tablet 0.1 MG 1.0 TAB ORAL ONCE DAILY Prescr ibed: July 10, 2024 5:07:5 8 PM UTC [facility] [id number] on July 10, 2024 5:07:58 PM UTC Continue d 818024 7717 4053 611 clopidogrel (PLAVIX) 75.0 MG ORAL ONCE DAILY Prescr ibed: July 10, 2024 5:07:5 8 PM UTC [facility] [id number] on July 10, 2024 5:07:58 PM UTC Continue d 307831 8392 9044 220 levothyroxi ne 100 mcg tablet 100.0 MCG ORAL BEFORE BREAKFAST Prescr ibed: July 10, 2024 5:07:5 8 PM UTC [facility] [id number] on July 10, 2024 5:07:58 PM UTC INPATIENT MEDICATIONS Status RXNORM [facility] Medication Dose Route Frequency Rat e Quantity Dates Comments Physician Updated By Discont inued [id number] 0886 0484 048 normal saline (NS) 0.9 % SOLN 1000. 0 ML INTRAV ENOUS CONT 100.0 ML/HR Start: July 09, 2024 11:54: 00 PM UT End: July 10, 2024 7:04:0 0 PM UT [facility] [id number] on July 11, 2024 4:25:00 AM UT Discont inued 0012 1176 130 MAG-AL PLUS 200-200-20 MG/5 ML LIQD 30.0 ML ORAL EVERY SIX HOURS NEEDED Start: July 09, 2024 11:54: 00 PM UT End: July 10, 2024 5:07:5 8 PM UT [facility] [id number] on July 11, 2024 4:25:00 AM UT Discont inued 582446 8019 4677 361 ACETAMINOPH EN 325 MG TABS 650.0 MG ORAL EVERY SIX HOURS NEEDED Start: July 09, 2024 11:54: 00 PM UT End: July 10, 2024 5:07:5 8 PM UTC [facility] [id number] on July 11, 2024 4:25:00 AM UT Discont inued 961521 5701 1001 406 melatonin 3 MG TABS 3.0 MG ORAL AT BEDTIME NEEDED Start: July 09, 2024 11:54: 00 PM UT End: July 10, 2024 5:07:5 8 PM UTC [facility] [id number] on July 11, 2024 4:25:00 AM UT Discont inued 311899 4433 4677 361 ACETAMINOPH EN 325 MG TABS 650.0 MG ORAL EVERY SIX HOURS NEEDED Start: July 09, 2024 11:54: 00 PM UT End: July 10, 2024 5:07:5 8 PM UTC [facility] [id number] on July 11, 2024 4:25:00 AM UT Discont inued 204489 4222 9072 630 polyethylen e glycol (MIRALAX) 3350/ 17 GM PACK 17.0 GM ORAL ONCE DAILY NEEDED Start: July 09, 2024 11:54: 00 PM UTC End: July 10, 2024 5:07:5 8 PM UTC [facility] [id number] on July 11, 2024 4:25:00 AM UTC Discont inued 820850 9135 7073 601 pantoprazol e (PROTONIX) 40 MG TBEC 40.0 MG ORAL ONCE DAILY Start: July 10, 2024 1:00:0 0 PM UTC End: July 10, 2024 5:07:5 8 PM UTC [facility] [id number] on July 11, 2024 4:25:00 AM UTC Discont inued 4632868 9981 9475 503 ondansetron (ZOFRAN) 4 MG/2ML SOLN 4.0 MG INTRAV ENOUS EVERY EIGHT HOURS NEEDED Start: July 09, 2024 11:54: 00 PM UTC End: July 10, 2024 5:07:5 8 PM UTC [facility] [id number] on July 11, 2024 4:25:00 AM UTC Discont inued 127998 4093 6024 064 ondansetron (ZOFRAN) 4 MG TBDP 4.0 MG SUBLIN GUAL EVERY EIGHT HOURS NEEDED Start: July 09, 2024 11:54: 00 PM UTC End: July 10, 2024 5:07:5 8 PM UTC [facility] [id number] on July 11, 2024 4:25:00 AM UTC Discont inued Free Text Med midodrine 10 mg tablet 1.0 TAB ORAL THREE TIMES A DAY Start: July 10, 2024 1:18:0 0 PM UTC End: July 10, 2024 1:21:5 5 PM UTC [facility] [id number] on July 10, 2024 1:21:00 PM UTC Discont inued 886337 3826 4054 611 clopidogrel (PLAVIX) 75 MG TABS 75.0 MG ORAL ONCE DAILY Start: July 10, 2024 1:17:0 0 PM UTC End: July 10, 2024 7:04:0 0 PM UTC [facility] [id number] on July 11, 2024 4:25:00 AM UTC Discont inued 848745 6788 9044 220 levothyroxi ne (SYNTHROID) 100 MCG TABS 100.0 MCG ORAL BEFORE BREAKFAST Start: July 10, 2024 1:17:0 0 PM UTC End: July 10, 2024 7:04:0 0 PM UTC [facility] [id number] on July 11, 2024 4:25:00 AM UTC Discont inued 549670 9620 4098 801 allopurinol (ZYLOPRIM) 100 MG TABS 100.0 MG ORAL TWICE A DAY Start: July 10, 2024 1:16:0 0 PM UTC End: July 10, 2024 7:04:0 0 PM UTC [facility] [id number] on July 11, 2024 4:25:00 AM UTC Discont inued 945057 3847 4002 911 atorvastati n calcium (LIPITOR) 40 MG TABS 80.0 MG ORAL AT BEDTIME Start: July 10, 2024 5:07:5 8 PM UTC End: July 10, 2024 5:07:5 8 PM UTC [facility] [id number] on July 11, 2024 4:25:00 AM UTC Discont inued 607985 0241 7075 711 amiodarone (CORDARONE) 200 MG TABS 200.0 MG ORAL BEFORE BREAKFAST Start: July 10, 2024 1:16:0 0 PM UTC End: July 10, 2024 7:04:0 0 PM UTC [facility] [id number] on July 11, 2024 4:25:00 AM UTC Discont inued 695918 1402 7067 811 midodrine (PROAMATINE ) 5 MG TABS 10.0 MG ORAL THREE TIMES A DAY Start: July 10, 2024 1:21:0 0 PM UTC End: July 10, 2024 5:07:5 8 PM UTC [facility] [id number] on July 11, 2024 4:25:00 AM UTC Discont inued 2599194 2185 8028 930 rivaroxaban (XARELTO) 20 MG TABS 20.0 MG ORAL NOW Start: July 10, 2024 5:08:0 0 PM UTC End: July 10, 2024 5:46:4 3 PM UTC [facility] [id number] on July 10, 2024 5:46:00 PM UTC Discont inued XXXX XXX0 063 *PATIENT INFORMATION [facility] 1.0 EA SEE COMMEN TS NEEDED Start: July 10, 2024 5:09:0 0 PM UTC End: July 10, 2024 7:04:0 0 PM UTC [facility] [id number] on July 11, 2024 4:25:00 AM UTC Discont inued 0262784 0653 8088 930 rivaroxaban (XARELTO) 20 MG TABS 20.0 MG ORAL ONE TIME ONLY Start: July 10, 2024 5:47:0 0 PM UTC End: July 10, 2024 5:47:0 0 PM UTC EYAL Carter MD INTERF ED on July 10, 2024 5:45:00 PM UT SOCIAL HISTORY SOCIAL HISTORY SNOMED-CT Social History Element Description Effective Dates Offered Cessation Comment UpdatedBy [id number] Current Tobacco smoking status Never Smoked [id number] on July 09, 2024 7:34:28 PM UT SOCIAL HISTORY - Gender Sex: Male SOCIAL HISTORY - Status : status i nformation is not available Intention in Next Year: intention information is not available SOCIAL HISTORY - Sexual Behavior Sexual Orientation Gender Identity SNOMED-CT Description SNO MED -CT Description Activity Level No of Partners Partner Type UpdatedBy Information is not available VITAL SIGNS PATIENT VITAL SIGNS This section displays the mo st recent value for each vital sign as of July 12, 2024 5:05:13 PM UT Loinc Code Vital Sign Activity Date Result Updated By 8302-2 Body height July 09, 2024 11:15:43 PM UT 190.5 cm (75.0 in) [id number] on July 09, 2024 11:15:[place] [address]-0 Body mass index (BMI ) [Ratio] July 09, 2024 11:15:43 PM UTC 24.883 kg/m2 [id number] on July 09, 2024 11:15:43 PM UT 3140-1 Body Surface Area Derived From Formula July 09, 2024 11:15:43 PM UTC 2.1901 m2 [id number] on July 09, 2024 11:15:43 PM UTC 8310-5 Body temperature July 10, 2024 2:3 8:00 PM UTC 97.8 [degF] [id number] on July 10, 2024 3:43:11 PM UTC 74848-4 Body weight Measured July 09, 2024 11:15:43 PM UTC 90.3 kg (199.0 lb) [id number] on July 09, 2024 11:15:43 PM UTC 8462-4 Diastolic blood pressure July 10, 2024 2:38:00 PM UTC 61.0 mm[Hg] [id number] on July 10, 2024 3:43:11 PM UTC 8867-4 Heart rate July 10, 2024 2:38 :00 PM UTC 54 /min [id number] on July 10, 2024 3:43:11 PM UTC 25992-6 Oxygen saturation in Arterial blood by Pulse oximetry July 10, 2024 2:38:00 PM UTC 97.0 % [id number] on July 10, 2024 3:43:11 PM UTC 9279-1 Respiratory rate July 10, 2024 2:3 8:00 PM UTC 19 /min [id number] on July 10, 2024 3:43:11 PM UTC 00449-4 Spirometry panel July 10, 2024 11:22:00 AM UTC 10.0 {score} [id number] on July 10, 2024 12:40:22 PM UTC 8480-6 Systolic blood pressure July 10, 2024 2:38:00 PM UTC 122.0 mm[Hg] [id number] on July 10, 2024 3:43:11 PM UT PEDIATRIC GROWTH CHART - VITAL SIGNS This section displays Head C ircumference Percentile, Weight for Length Percentile and BMI Percentile Loinc Code Pediatric Measure Age (Months) Result Updat ed By No Pediatric Growth Chart Pe rcentile Information Available. HEALTH CONCERNS Problems Concern Status Health Concern problem infor mation not available. Smoking Status Status Years Used Consumed packs p er day Health Concern smoking histo ry information not available. Family History Concern Status Health Concern family histor y information not available. ENCOUNTERS ENCOUNTER INFORMATION Reason for Visit ORTHOSTATIC HYPOTENS ION Admission July 10, 2024 4:05:00 PM UTC [address] [address] Discharge July 10, 2024 7:04:00 PM UTC DISCH ARGED TO HOME OR SELF CARE ENCOUNTER DIAGNOSES Note Title Short Stay Summary Date Of Service July 10, 2024 7:36:02 PM UTC Created By [id number] on July 10 7:36:02 PM UTC Signed By [id number] on July 10 7:58:49 PM UTC Code System Diagnosis Onset Date [id number] SNOMED-CT Orthostatic hypotension ABSTRACT DIAGNOSES Code System Diagnosis Updated By R42 ICD10 DIZZINESS AND GIDDINESS [id number] on July 12, 2024 5:04:51 PM UTC I95.1 ICD10 ORTHOSTATIC HYPOTENSION PQE7 261 on July 12, 2024 5:04:51 PM UTC E86.0 ICD10 DEHYDRATION [id number] on July 12, 2024 5:04:51 PM UTC R00.1 ICD10 BRADYCARDIA, UNSPECIFIED PQE 7261 on July 12, 2024 5:04:51 PM UTC N19 ICD10 UNSPECIFIED KIDNEY FAILURE P [id number] on July 12, 2024 5:04:51 PM UTC 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, 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, NOT SPECIFIED RECURRENT [id number] on July 12, 2024 5:04:51 PM UTC I11.0 ICD10 HYPERTENSIVE HEA RT DISEASE WITH HEART FAILURE [id number] on July 12, 2024 5:04:51 PM UTC I50.9 ICD10 HEART FAILURE, UNSPECIFIED P [id number] on July 12, 2024 5:04:51 PM UTC I48.91 ICD10 UNSPECIFIED ATRIAL FIBRILLAT ION [id number] on July 12, 2024 5:04:51 PM UTC I25.10 ICD10 ATHEROSCLEROTIC HEART DISEASE OF [place] CORONARY ARTERY WITHOUT ANGINA PECTORIS [id number] on July 12, 2024 5:04:51 PM UTC E07.9 ICD10 DISORDER OF THYROID, UNSPECI FIED [id number] on July 12, 2024 5:04:51 PM UTC M10.9 ICD10 GOUT, UNSPECIFIED [id number] on July 12, 2024 5:04:51 PM UTC K21.9 ICD10 GASTRO-ESOPHAGEA L REFLUX DISEASE WITHOUT ESOPHAGITIS [id number] on July 12, 2024 5:04:51 PM UT Z79.890 ICD10 HORMONE REPLACEMENT THERAPY [id number] on July 12, 2024 5:04:51 PM UTC Z79.82 ICD10 CHCF (CURRENT) USE OF A SPIRIN [id number] on July 12, 2024 5:04:51 PM UT Z79.899 ICD10 OTHER [facility] (CURRENT) DR UG THERAPY [id number] on July 12, 2024 5:04:51 PM UTC Z79.01 ICD10 [facility] (CURRE NT) USE OF ANTICOAGULANTS [id number] on July 12, 2024 5:04:51 PM UTC Z79.84 ICD10 TECHNICAL SUPERVISOR (CURRE NT) USE OF ORAL HYPOGLYCEMIC DRUGS [id number] on July 12, 2024 5:04:51 PM UT Z79.02 ICD10 TECHNICAL SUPERVISOR (CURRE NT) USE OF ANTITHROMBOTICS/ANTIPLATELETS [id number] on July 12, 2024 5:04:51 PM UT 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 [id number] on July 12, 2024 5:04:51 PM [facility] CARE TEAM Care Production Welding Supervisor Role KAYLYN BIRCH Primary Attending KAYLYN BIRCH Admitting [facility] Primary Care KAYLYN BIRCH Referring HOSPITAL DISCHARGE INSTRUCTION DISCHARGE INSTRUCTION Encounter [id number] Admit Date July 10, 2024 4:05:00 PM [facility] Discharge Date July 10, 2024 7:04:00 PM [facility] PATIENT EDUCATION SUMMARY Patient/Visit Information: Patient Name: HINA OROZCO Diag: Attending Caregiver: EYAL Carter MD Discharge Instruction Sheets Provided: * [facility] Stroke && BEFAST Education *[facility] *[facility] Social Determinants of Health *[facility] Suicidal Feelings: How to Help Yourself (LPNT) () Orthostatic Hypotension Smoking\Tobacco Cessation - [facility] () () Patient Instructions: Additional Notes for * [facility] Stroke && BEFAST Education Please follow up with your primary care provider within 5-7 days. Return to ER if symptoms worsen. Followup Appointments/Instructions: HISTORY AND PHYSICAL NOTE CARE TEAM CARE perinatal coordinator Role on Team Status Start Date End Date Update d By EYAL Carter MD [facility] Referring normal July 09, 2024 9:35:02 PM [facility] July 10, 2024 4:00:00 AM UTC [id number] on July 09, 2024 9:35:02 PM UTC EYAL Carter MD Annette Attending normal July 09, 2024 9:35:02 PM UTC July 10, 2024 4:00:00 AM UTC [id number] on July 09, 2024 9:35:02 PM UTC EYAL Carter MD [facility] Admitting normal July 09, 2024 9:35:02 PM UTC July 10, 2024 4:00:00 AM UTC [id number] on July 09, 2024 9:35:02 PM UTC ED Nicole MD [facility] Referring normal July 09, 2024 8:08:43 PM UTC July 09, 2024 8:08:43 PM UTC [id number] on July 09, 2024 9:35:02 PM UTC ED Nicole MD Referring normal July 09, 2024 8:08:43 PM UTC July 09, 2024 9:34:05 PM UTC [id number] on July 09, 2024 9:35:02 PM UTC ED Nicole MD [facility] Attending normal July 09, 2024 8:08:43 PM UTC July 09, 2024 8:08:43 PM UTC [id number] on July 09, 2024 9:35:02 PM UTC ED Nicole MD Attending normal July 09, 2024 8:08:43 PM UTC July 09, 2024 9:34:05 PM UTC [id number] on July 09, 2024 9:35:02 PM UTC ED Nicole MD [facility] Admitting normal July 09, 2024 8:08:43 PM UTC July 09, 2024 8:08:43 PM UTC [id number] on July 09, 2024 9:35:02 PM UTC ED Nicole MD Admitting normal July 09, 2024 8:08:43 PM UTC July 09, 2024 9:34:05 PM UTC [id number] on July 09, 2024 9:35:02 PM UTC ELIZABETH Herrmann MD [facility] PCP normal July 09, 2024 6:48:12 PM UTC July 09, 2024 9:34:05 PM UTC [id number] on July 09, 2024 9:35:02 PM [facility]
--- NOTE | 2024-07-27 10:30 | PC.NURSE ---
faxed medical release form to [facility] at this time.
[2024-07-27 10:40] LABS: Basophils # 0.1 K/mm3 (0-0.2); Eosinophils # 0.3 Kmm3 (0.0-0.4); Hematocrit 40.4 % (42.0-52.0); Hemoglobin 12.5 g/dL (14.1-18.0); Immature Granulocytes # 0.01 10^3uL; Immature Granulocytes % 0.2 %; Lymphocytes # 1.6 K/mm3 (0.7-4.5); Lymphocytes % 32.5 % (10-50); Mean Corpuscular HGB Conc 30.9 g/dL (31.8-35.4); Mean Corpuscular Hemoglobin 26.8 pg (27.0-31.2); Mean Corpuscular Volume 86.5 fl (80-94); Mean Platelet Volume 11.9 fl (7.4-10.4); Monocytes # 0.4 K/mm3 (0.1-1.0); Monocytes % 8.7 % (1.7-9.3); Neutrophils # 2.6 K/mm3 (1.8-7.8); Neutrophils % 52.6 % (37.0-80.0); Nucleated Red Blood Cells # 0 10^3/uL; Nucleated Red Blood Cells % 0 %; Platelet Count 230 K/mm3 (142-424); Red Blood Count 4.67 M/mm3 (4.60-6.20); Red Cell Distribution Width 17.3 % (11.5-17.5); Red Cell Distribution Width-SD 54.5 fL
--- NOTE | 2024-07-27 10:48 | ED_ITS ---
Discharge Plan Disposition Patient Disposition: Admitted Condition: Good Clinical Impressions Clinical Impression: General weakness, Orthostatic hypotension, CHF (congestive heart failure), Hematuria Discharge ED Provider: Sandi Rush General Adult HPI General Chief complaint: Weakness Stated complaint: CP Time Seen by Provider: 07/27/24 10:00 Mode of Arrival: Ambulatory Source of Information: Patient Description of Symptoms (Recalled from ER Triage Doc. by RN): patient states he was having chest pain lastnight and has been weak and fatigued for about 3 weeks History of Present Illness HPI narrative: This patient is an 78-year-old male with a history of CKD, CHF, atrial fibrillation, hypothyroidism, dizziness, peripheral edema presenting to the emergency department for evaluation with concern for general weakness for the last 3 weeks. Patient reports that he has been in and out of [facility] for the last few months for weakness and issues and he states that they cannot figure out what is wrong with him. He notes that he has had multiple MRIs, CAT scans, and he had some testicular pain for which she had an ultrasound but he stated no one could find anything wrong. He states that he has been feeling very weak and having difficulty walking, which is new for him. He states that last night, he got up to turn off the heater and had to lower himself to the ground and crawl back to his bed because he did not have the strength to walk. He notes that he has had issues with dizziness and low blood pressure in the past which has been prescribed medications including midodrine, fludricortisone, and he also was on Bumex on medical record review. These medications were stopped by cardiology. He of note, he also had a catheterization with stenting back in April on medical record review. Patient states that he has chronic cough and congestion but denies any fevers, headache, vision changes, unilateral weakness, numbness, tingling, chest pain, shortness of breath, abdominal pain, nausea, vomiting, changes in bowel movements, or rashes. He does note lower extremity swelling on review of systems that he states is chronic Related Data Home Medications ?Medication ?Instructions ?Recorded ?Confirmed allopurinol 100 mg tablet 100 mg PO BID 06/26/23 07/27/24 aspirin 81 mg tablet,delayed 81 mg PO DAILY 06/26/23 07/27/24 release atorvastatin 80 mg tablet 80 mg PO HS 06/26/23 07/27/24 cyanocobalamin (vitamin B-12) 1,000 mcg PO WEEKLY 08/03/23 07/27/24 1,000 mcg capsule ergocalciferol (vitamin D2) 50 mcg 50 mcg PO DAILY 08/03/23 07/27/24 (2,000 unit) capsule levothyroxine 125 mcg tablet 125 mcg PO DAILY 07/27/24 07/27/24 rivaroxaban 20 mg tablet (Xarelto) 20 mg PO QPMWITHMEAL 07/27/24 07/27/24 sulfamethoxazole 400 1 tab PO BID 07/27/24 07/27/24 mg-trimethoprim 80 mg tablet Previous Rx's ?Medication ?Instructions ?Recorded clopidogrel 75 mg tablet (Plavix) 75 mg PO DAILY #30 tabs 04/26/24 empagliflozin 10 mg tablet 10 mg PO DAILY 90 days #90 tabs 07/04/24 (Jardiance) Allergies Allergy/AdvReac Type Severity Reaction Status Date / Time No Known Allergies Allergy Verified 05/16/24 14:32 [facility] Disclaimer: The information contained in this section may have been updated after the patient was seen, as this information can be updated by other users. Medical History Abnormal stress test Syncope Hypokalemia Hypotension Excessive weight loss Bradycardia Pericardial effusion (HFpEF) heart failure with preserved ejection fraction Coronary artery disease Lymphedema of both lower extremities CHF (congestive heart failure) Hypertension Atrial fibrillation Abnormal electrocardiogram [ECG] [EKG] Kidney damage Surgical History History of cardiac cath S/P CABG x 3 Family History Other No significant family history Social History Smoking Status: Never smoker alcohol intake: never substance use type: denies use current occupational status: retired Travel in the last 8 weeks?: Inside the [place] Have you lived/traveled outside [place] in past 30 days?: No Contact w/someone who lives/traveled outside [place] past 30 days?: No Exposure to someone with infectious disease in past 14 days?: No Do you have a fever (greater than 100.4 F or 38 C)?: No Have you tested positive for COVID-19?: No Exposed to someone with COVID-19 in past 14 days?: No Do you have a sore throat?: No Do you have a cough?: No Do you have any weakness?: No Do you have any diarrhea?: No Are you experiencing any unusual bleeding?: No Do you have any muscle aches/pain?: No Do you have any abdominal pain?: No Are you experiencing loss of taste or smell?: No Other Medical History Have you received the Flu Vaccine for this season: No Have you received the Pneumonia Vaccine: Yes ROS Obtained: Yes All systems reviewed & no additional complaints except as documented Physical Exam General General appearance: alert and in no apparent distress Comment: Generally weak without focal deficit Head Head exam: atraumatic and normocephalic Eye Eye exam: Present normal appearance, PERRL and EOMI ENT ENT exam: Present mucous membranes dry and normal external ear exam Neck Neck exam: Present normal inspection, full ROM and trachea midline; Absent tenderness Chest Chest inspection: Present normal inspection and symmetric chest wall rise; Absent tenderness Respiratory Respiratory exam: Present normal lung sounds bilaterally; Absent respiratory distress, wheezes, stridor or accessory muscle use Cardiovascular Cardiovascular exam: Present regular rate and normal rhythm Abdominal Exam Abdominal exam: Present soft; Absent distention, tenderness or guarding Extremities Exam Extremities exam: Present full ROM, normal capillary refill and edema (Mild); Absent tenderness Back Exam Back exam: Present normal inspection and full ROM; Absent tenderness Neurological Exam Neurological exam: Present alert, oriented X3, CN II-XII intact and other (Generally weak without any focal deficit); Absent motor sensory deficit Psychiatric Psychiatric exam: Present normal affect and normal mood Skin Skin exam: Present warm and dry Medical Decision Making Medical Records Medical records reviewed: Yes I reviewed the patient's medical records. Screening: Per USPSTF and CDC recommendations, given the prevalence of disease in our region, it is our hospital?s policy to screen for HIV and viral Hepatitis for all patients aged 18 and over and those with ongoing risk factors. Charan Inquiry Pt receiving controlled substance: No Vital Signs: 07/27/24 09:59 07/27/24 10:01 07/27/24 10:12 Temperature 97.8 F Temperature Source Oral Pulse Rate 61 Pulse Rate [Orthostatic Lying] 55 L Pulse Rate [Orthostatic Sitting] 59 L Pulse Rate [Orthostatic Standing] 60 Pulse Rate [Right Radial] 67 Respiratory Rate 19 Blood Pressure 139/82 Blood Pressure [Orthostatic Lying] 153/77 H Blood Pressure [Orthostatic Sitting] 137/68 Blood Pressure [Orthostatic Standing] 102/55 L Blood Pressure [Right Arm] 151/84 H Blood Pressure Mean Blood Pressure Mean [Right Arm] 106 Blood Pressure Source Blood Pressure Source [Right Arm] Automatic Cuff Blood Pressure Position Blood Pressure Position [Right Arm] Supine 02 Sat by Pulse Oximetry 95 96 Oxygen Delivery Method Room Air 07/27/24 10:31 07/27/24 11:01 07/27/24 11:30 Temperature Temperature Source Pulse Rate 56 L 55 L 53 L Pulse Rate [Orthostatic Lying] Pulse Rate [Orthostatic Sitting] Pulse Rate [Orthostatic Standing] Pulse Rate [Right Radial] Respiratory Rate 22 15 20 Blood Pressure 140/86 165/79 H 157/80 H Blood Pressure [Orthostatic Lying] Blood Pressure [Orthostatic Sitting] Blood Pressure [Orthostatic Standing] Blood Pressure [Right Arm] Blood Pressure Mean Blood Pressure Mean [Right Arm] Blood Pressure Source Blood Pressure Source [Right Arm] Blood Pressure Position Blood Pressure Position [Right Arm] 02 Sat by Pulse Oximetry 95 99 97 Oxygen Delivery Method 07/27/24 12:06 07/27/24 12:31 07/27/24 13:01 Temperature Temperature Source Pulse Rate 62 56 L 55 L Pulse Rate [Orthostatic Lying] Pulse Rate [Orthostatic Sitting] Pulse Rate [Orthostatic Standing] Pulse Rate [Right Radial] Respiratory Rate 14 17 16 Blood Pressure 182/84 H 191/160 H 158/75 H Blood Pressure [Orthostatic Lying] Blood Pressure [Orthostatic Sitting] Blood Pressure [Orthostatic Standing] Blood Pressure [Right Arm] Blood Pressure Mean Blood Pressure Mean [Right Arm] Blood Pressure Source Blood Pressure Source [Right Arm] Blood Pressure Position Blood Pressure Position [Right Arm] 02 Sat by Pulse Oximetry 98 97 99 Oxygen Delivery Method 07/27/24 13:33 07/27/24 13:37 07/27/24 13:57 Temperature 97.8 F Temperature Source Oral Pulse Rate 62 62 Pulse Rate [Orthostatic Lying] 61 Pulse Rate [Orthostatic Sitting] 64 Pulse Rate [Orthostatic Standing] 62 Pulse Rate [Right Radial] Respiratory Rate 20 17 Blood Pressure 134/64 134/64 Blood Pressure [Orthostatic Lying] 162/75 H Blood Pressure [Orthostatic Sitting] 152/76 H Blood Pressure [Orthostatic Standing] 134/64 Blood Pressure [Right Arm] Blood Pressure Mean 87 Blood Pressure Mean [Right Arm] Blood Pressure Source Automatic Cuff Blood Pressure Source [Right Arm] Blood Pressure Position Supine Blood Pressure Position [Right Arm] 02 Sat by Pulse Oximetry 99 Oxygen Delivery Method Room Air Lab Data Lab results reviewed: Yes I reviewed the patient's lab results. Lab Results 07/27/24 10:23: WBC 5.0, RBC 4.67, Hgb 12.5 L, Hct 40.4 L, MCV 86.5, MCH 26.8 L, MCHC 30.9 L, RDW 17.3, Plt Count 230, MPV 11.9 H, Neut % (Auto) 52.6, Lymph % (Auto) 32.5, Kidder % (Auto) 8.7, Eos % (Auto) 5.0, Baso % (Auto) 1.0, Neut # (Auto) 2.6, Lymph # (Auto) 1.6, Kidder # (Auto) 0.4, Eos # (Auto) 0.3, Baso # (Auto) 0.1, Sodium 134 L, Potassium 4.0, Chloride 107, Carbon Dioxide 26, Anion Gap 5.0, BUN 15, Creatinine 1.80 H, Estimated Creat Clear 43, Estimated GFR 36 L , Est GFR ( Amer) 44 L, Glucose 93, Calcium 8.7, Phosphorus 3.2, Magnesium 2.1, Total Bilirubin 0.4, AST 26, ALT 15, Alkaline Phosphatase 113, Troponin I 0.02, NT-Pro-B Natriuret Pep 3430 H, Total Protein 5.6 L, Albumin 3.0 L, Globulin 2.6, Albumin/Globulin Ratio 1.2, TSH 0.84, Thyroxine (T4) 10.8, HCV Ab MELO w/Rflx PCR Qn Negative, HIV Ag/Ab Combo Qual Negative 07/27/24 11:35: Urine Color Yellow, Urine Appearance Clear, Urine pH 6.0, Ur Specific Billingsley 1.020, Urine Protein 3+ A, Urine Glucose (UA) 3+, Urine Ketones Negative, Urine Blood 2+ A, Urine Nitrate Negative, Urine Bilirubin Negative, Urine Urobilinogen 1.0, Ur Leukocyte Esterase Negative 07/27/24 10:23 07/27/24 10:23 Orders (Tests/Meds): ED MEDICATIONS Discontinued Medications Generic Name Dose Route Start Last Admin Trade Name Freq PRN Reason Stop Dose Admin Sodium Chloride 500 mls @ 999 mls/hr 07/27/24 12:32 07/27/24 12:48 Sod Chlor 0.9% 1000ml Bag IV 07/27/24 13:02 999 mls/hr .Q31M ONE Administration ORDERS Category Date Time Status CXR --portable [XR chest portable] Stat Exams 07/27/24 10:13 Completed BNP [NT Pro Brain Natriuretic Pep.] Stat Lab 07/27/24 10:23 Completed CBC w/Auto Diff [Complete Blood Count Auto Diff] Stat Lab 07/27/24 10:23 Completed CMP [Comprehensive Metabolic Panel] Stat Lab 07/27/24 10:23 Completed HIV Combo Stat Lab 07/27/24 10:23 Completed Hepatitis C Ab Qual. W/ RFX Stat Lab 07/27/24 10:23 Completed MAG [Magnesium] Stat Lab 07/27/24 10:23 Completed PHOS [Phosphorous] Stat Lab 07/27/24 10:23 Completed T4 (Thyroxine) Stat Lab 07/27/24 10:23 Completed TSH [Thyroid Stimulating Hormone] Stat Lab 07/27/24 10:23 Completed Trop I [Troponin I] Stat Lab 07/27/24 10:23 Completed Troponin I Q3H Lab 07/27/24 12:50 Received Troponin I Q3H Lab 07/27/24 16:15 Ordered UA [Urinalysis and Microscopic] Stat Lab 07/27/24 11:35 Results ECG Data Tracing #1: I reviewed this ECG and interpreted as documented below: Normal sinus rhythm with a ventricular rate of 61 bpm. Left axis deviation. Right bundle branch block. No acute ST changes concerning for STEMI. ECG initial impression date: 07/27/24 ECG initial impression time: 10:02 Medical Decision Narrative: In summary, this patient is a 78-year-old male presenting to the Emergency Department for evaluation of general weakness. Differential diagnoses considered include but are not limited to CHF, dehydration, electrolyte derangements, orthostatic hypotension, medication adverse reaction, failure to thrive, general debility. Ruling out the most morbid conditions drove assessment. It should be noted patient's history includes hypertension, hyperlipidemia, hypothyroidism, diabetes, CAD, CKD which may or may not be at goal therapy. This complicates all aspects of care by increasing patient's risk for morbidity. I reviewed patient's past medical records and noted prior cardiology evaluations as detailed in HPI. On exam, the patient is lying in bed in no acute distress. He has no focal neurologic deficits but is generally weak. Orthostatic vital signs demonstrate a drop in his systolic blood pressure about 50 with symptoms. Vitals reassuring at rest. Pulmonary and abdominal exams are benign. Workup included lab evaluation to evaluate for infectious, metabolic, cardiac causes of general weakness as well as chest x-ray and EKG. I independently interpreted chest x-ray prior to the radiologist read and noted no large focal consolidation concerning for pneumonia, no pulmonary edema. Please see their read for final interpretation. Labs were obtained that demonstrated elevated BNP and borderline troponin in the setting of chronic cardiac dysfunction.. CBC demonstrates mild anemia, not requiring transfusion. He has mild hyponatremia mild bump in his creatinine when compared to prior. This could be from volume depletion. He also has proteinuria and blood in his urine, could also be from possible volume depletion. He had significant orthostatic hypotension which did not resolve after 1 L bolus of IV fluids. Given this, I feel he would benefit from admission for further evaluation and management, especially given that he cannot walk. I had an interactive discussion with the hospitalist who admitted the patient in stable condition Critical Care Critical Care Time Critical Care Time: No
[2024-07-27 11:06] LABS: Chloride 107 mmol/L (98-107); Sodium 134 mmol/L (136-145)
[2024-07-27 11:08] LABS: Blood Urea Nitrogen 15 mg/dl (9-20); Creatinine Clearance Estimated 43 mL/min (50-200); Estimated Glomerular Filt Rate 36 ml/min (>60); GFR (African American) 44 ML/MIN (>60)
[2024-07-27 11:09] LABS: Alanine Aminotransferase 15 U/L (12-78); Albumin/Globulin Ratio 1.2 (1.1-1.8); Alkaline Phosphatase 113 U/L (38-126); Aspartate Amino Transferase 26 U/L (17-59); Bilirubin,Total 0.4 mg/dl (0.2-1.3); Calcium 8.7 mg/dl (8.4-10.2); Carbon Dioxide 26 mmol/L (22.0-30.0); Globulin 2.6 g/dL (1.3-3.2); Glucose 93 mg/dl (74-100); Phosphorous 3.2 mg/dl (2.5-4.5); Total Protein,Serum 5.6 g/dl (6.3-8.2)
[2024-07-27 11:10] LABS: Magnesium 2.1 mg/dl (1.6-2.3)
[2024-07-27 11:20] LABS: NT Pro Brain Natriuretic Pep. 3430 pg/mL (0-450)
[2024-07-27 11:22] LABS: Troponin I 0.02 ng/ml (0.00-0.034)
[2024-07-27 11:27] LABS: T4 (Thyroxine) 10.8 ug/dl (5.53-11.0)
[2024-07-27 11:39] LABS: Microscopic, Urine URINE MICROSCOPIC (MICROSCOPIC)
[2024-07-27 11:41] LABS: Thyroid Stimulating Hormone 0.84 uIU/mL (0.465-4.68)
[2024-07-27 11:51] LABS: Appearance,Urine CLEAR (Clear); Bilirubin,Urine Negative (Negative); Blood, Urine 2+ (Negative); Color,Urine YELLOW (Yellow); Glucose,Urine (UA) 3+ (Negative); Ketones,Urine Negative (Negative); Leukocyte Esterase,Urine Negative (Negative); Nitrate,Urine Negative (Negative); Protein,Urine 3+ (Negative)
--- NOTE | 2024-07-27 12:03 | PC.NURSE ---
took patient to bathroom at this time.
[2024-07-27 12:09] LABS: HIV Combo NEGATIVE (Negative)
[2024-07-27 12:17] LABS: Hepatitis C Ab Qual. W/ RFX NEGATIVE (Negative)
[2024-07-27] MEDS: 0.9 % SODIUM CHLORIDE 1000ML 500 ML 999 ML IV (12:48)
--- NOTE | 2024-07-27 14:09 | PC.NURSE ---
pt arrived to room 210 from ER via stretcher with SRNA @[id number]
[2024-07-27 14:16] LABS: Troponin I 0.02 ng/ml (0.00-0.034)
[2024-07-27 14:35] LABS: Bacteria,Urine Trace /lpf; WBC,Urine Occasional #/hpf (0-3)
[2024-07-27 17:12] LABS: Troponin I 0.02 ng/ml (0.00-0.034)
[2024-07-27 17:25] LABS: Creatine Kinase 52 U/L (55-170)
--- NOTE | 2024-07-27 17:28 | P.HP_ITS ---
History of Present Illness *Admission Date: 07/27/24 *Reason for visit:: Weakness, polyuria *History of present illness: Anup Box is a 78-year-old male with a medical history significant for CAD/CABG, A-fib on Xarelto, CKD stage III, hypothyroidism who presents with several day onset of progressive weakness and chronic polyuria. Patient states he has had a several month history of recurrent weakness, polyuria, and hospitalizations for hypotension/orthostatic hypotension. In fact, he was recently admitted to hospital in [facility] for similar symptoms which improved with fluid resuscitation. He denies fever/chills, chest pain, shortness of breath, abdominal pain. He does note that he has had chronic polyuria for a while, but on chart review it looks like he does take Jardiance 10 mg. On chart review, patient had a LHC in April 2024 with 2 stents, but also showed that patient was intravascular depleted for which Dr. Mccallum recommended discontinuing diuretics. Workup in the ED significant for creatinine 1.8 (baseline 1.5), UA positive for 3+ protein, 2+ blood, 3+ glucose but negative for UTI. CXR without acute findings. On arrival, patient was weak and orthostatic vitals were obtained which were grossly positive. He was given 500 mL bolus without improvement of symptoms. Case discussed with ED provider and decision was made to admit patient for progressive weakness, orthostatic hypotension. [facility] Disclaimer: The information contained in this section may have been updated after the patient was seen, as this information can be updated by other users. Medical History Abnormal stress test Syncope Hypokalemia Hypotension Excessive weight loss Bradycardia Pericardial effusion (HFpEF) heart failure with preserved ejection fraction Coronary artery disease Lymphedema of both lower extremities CHF (congestive heart failure) Hypertension Atrial fibrillation Abnormal electrocardiogram [ECG] [EKG] Kidney damage Surgical History History of cardiac cath S/P CABG x 3 Family History Other No significant family history Social History Smoking Status: Never smoker alcohol intake: never substance use type: denies use current occupational status: retired Travel in the last 8 weeks?: Inside the [place] Have you lived/traveled outside US in past 30 days?: No Contact w/someone who lives/traveled outside US past 30 days?: No Exposure to someone with infectious disease in past 14 days?: No Do you have a fever (greater than 100.4 F or 38 C)?: No Have you tested positive for COVID-19?: No Exposed to someone with COVID-19 in past 14 days?: No Do you have a sore throat?: No Do you have a cough?: No Do you have any weakness?: No Do you have any diarrhea?: No Are you experiencing any unusual bleeding?: No Do you have any muscle aches/pain?: No Do you have any abdominal pain?: No Are you experiencing loss of taste or smell?: No Other Medical History Have you received the Flu Vaccine for this season: Yes Have you received the Pneumonia Vaccine: Yes Meds Home Medications and Allergies Home Medications ?Medication ?Instructions ?Recorded ?Confirmed ?Type allopurinol 100 mg tablet 100 mg PO BID 06/26/23 07/27/24 History aspirin 81 mg tablet,delayed 81 mg PO DAILY 06/26/23 07/27/24 History release atorvastatin 80 mg tablet 80 mg PO HS 06/26/23 07/27/24 History cyanocobalamin (vitamin B-12) 1,000 mcg PO WEEKLY 08/03/23 07/27/24 History 1,000 mcg capsule ergocalciferol (vitamin D2) 50 mcg 50 mcg PO DAILY 08/03/23 07/27/24 History (2,000 unit) capsule clopidogrel 75 mg tablet (Plavix) 75 mg PO DAILY #30 tabs 04/26/24 07/27/24 Rx empagliflozin 10 mg tablet 10 mg PO DAILY 90 days #90 tabs 07/04/24 07/27/24 Rx (Jardiance) levothyroxine 125 mcg tablet 125 mcg PO DAILY 07/27/24 07/27/24 History rivaroxaban 20 mg tablet (Xarelto) 20 mg PO QPMWITHMEAL 07/27/24 07/27/24 History sulfamethoxazole 400 1 tab PO BID 07/27/24 07/27/24 History mg-trimethoprim 80 mg tablet New Prescriptions to Start Prescriptions: Allergies Allergy/AdvReac Type Severity Reaction Status Date / Time No Known Allergies Allergy Verified 05/16/24 14:32 Exam Data for Last 24 hours Vital signs and Labs for Last 24 Hours: Temp Pulse Resp BP Pulse Ox O2 Del Method 98.4 F 62 18 173/86 H 98 Room Air 07/27/24 16:00 07/27/24 16:00 07/27/24 16:00 07/27/24 16:00 07/27/24 16:00 07/27/24 16:00 Laboratory Results - last 24 hr 07/27/24 10:23: WBC 5.0, RBC 4.67, Hgb 12.5 L, Hct 40.4 L, MCV 86.5, MCH 26.8 L, MCHC 30.9 L, RDW 17.3, Plt Count 230, MPV 11.9 H, Neut % (Auto) 52.6, Lymph % (Auto) 32.5, [place] % (Auto) 8.7, Eos % (Auto) 5.0, Baso % (Auto) 1.0, Neut # (Auto) 2.6, Lymph # (Auto) 1.6, [place] # (Auto) 0.4, Eos # (Auto) 0.3, Baso # (Auto) 0.1, Sodium 134 L, Potassium 4.0, Chloride 107, Carbon Dioxide 26, Anion Gap 5.0, BUN 15, Creatinine 1.80 H, Estimated Creat Clear 43, Estimated GFR 36 L , Est GFR ( Amer) 44 L, Glucose 93, Calcium 8.7, Phosphorus 3.2, Magnesium 2.1, Total Bilirubin 0.4, AST 26, ALT 15, Alkaline Phosphatase 113, Troponin I 0.02, NT-Pro-B Natriuret Pep 3430 H, Total Protein 5.6 L, Albumin 3.0 L, Globulin 2.6, Albumin/Globulin Ratio 1.2, TSH 0.84, Thyroxine (T4) 10.8, HCV Ab MELO w/Rflx PCR Qn Negative, HIV Ag/Ab Combo Qual Negative 07/27/24 11:35: Urine Color Yellow, Urine Appearance Clear, Urine pH 6.0, Ur Specific [place] 1.020, Urine Protein 3+ A, Urine Glucose (UA) 3+, Urine Ketones Negative, Urine Blood 2+ A, Urine Nitrate Negative, Urine Bilirubin Negative, Urine Urobilinogen 1.0, Ur Leukocyte Esterase Negative, Urine RBC 3-5, Urine WBC Occasional, Ur Squamous Epith Cells None, Urine Bacteria Trace 07/27/24 12:50: Troponin I 0.02 07/27/24 16:25: Total Creatine Kinase 52 L, Troponin I 0.02 I & O for Last 24 hours: Intake & Output 07/24/24 07/25/24 07/26/24 07/27/24 23:59 23:59 23:59 23:59 Weight 92.986 kg Constitutional Constitutional: no acute distress *Routine HEENT Exam Head: Present normocephalic Eye: Present EOMI and PERRL ENT: Present mucous membranes moist *Routine Neck Exam Neck: Present supple; Absent lymphadenopathy *Routine Respiratory Exam Respiratory: Present CTA bilaterally *Routine Cardiovascular Exam Cardiovascular: Present RRR *Routine Abdominal Exam Abdominal: Present soft and normoactive bowel sounds; Absent tenderness *Routine Rectal Exam Rectal:: deferred *Routine Genitalia Exam Genitalia:: deferred *Routine Extremities Exam Extremities: Absent cyanosis, clubbing or edema *Routine Skin Exam Skin: Present warm; Absent rash *Routine Neurological Exam Neurological: Present alert and oriented X3 Assessment and Plan *Assessment and plan (1) Orthostatic hypotension: Status: Acute Category: Medical Code(s): I95.1 - Orthostatic hypotension Plan Anup Box is a 78-year-old male with a medical history significant for CAD/CABG, A-fib on Xarelto, CKD stage III, hypothyroidism who presents with several day onset of progressive weakness and chronic polyuria. Patient states he has had a several month history of recurrent weakness, polyuria, and hos pitalizations for hypotension/orthostatic hypotension. In fact, he was recently admitted to hospital in [facility] for similar symptoms which improved with fluid resuscitation. He denies fever/chills, chest pain, shortness of breath, abdominal pain. He does note that he has had chronic polyuria for a while, but on chart review it looks like he does take Jardiance 10 mg. On chart review, carlos alberts had a LHC in April 2024 with 2 stents, but also showed that patient was intravascular depleted for which Dr. Mccallum recommended discontinuing diuretics. Workup in the ED significant for creatinine 1.8 (baseline 1.5), UA positive for 3+ protein, 2+ blood, 3+ glucose but negative for UTI. CXR without acute findings. On arrival, patient was weak and orthostatic vitals were obtained which were grossly positive. He was given 500 mL bolus without improvement of symptoms. Case discussed with ED provider and decision was made to admit patient for progressive weakness, orthostatic hypotension. #Weakness #Recurrent orthostatic hypotension #Polyuria #Medication misadventure #TONY on CKD stage IIIa ? Patient has had recurrent episodes of weakness, orthostatic hypotension that had previously been treated with midodrine, fludrocortisone. These have since been discontinued by cardiology. He was also being treated with Bumex for suspected HFpEF, however LHC in April 2024 showed intravascular depletion for which Dr. Mccallum recommended discontinue diuretics. ? Upon chart review, patient has been taking Jardiance 10 mg at least since March 2024 around which symptoms started. Patient endorses significant polyuria that frequently wakes him up at night. UA here shows glucosuria, proteinuria, hematuria. ? I believe Jardiance could be a culprit into patient's recurrent orthostatic hypotension and significant polyuria, and possibly even causing hypoglycemia at home leading to weakness. ? I have low suspicion for diabetes insipidus at this time given normal sodium. However, follow-up urine, serum osmolality, urine sodium. No evidence of UTI. ? Will discontinue Jardiance that was likely started previously for heart failure. Follow-up A1c. ? Ordered additional 500 mL bolus. Continue with LR at 100 ml/h thereafter. ? Follow-up repeat orthostatics in the morning. 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 Patient has recently been evaluated by urology who per patient seem to have tenderness cystoscopy which was unremarkable. ? No evidence of UTI. ? Triple therapy may explain hematuria. Hemoglobin stable at 12.5. ? However, given combination of proteinuria, hematuria, and low albumin and previous history of lower extremity/groin edema I have concern for nephrotic/nephritic syndrome. ? Given [facility] long weekend, will not be able to do much of that workup including renal ultrasound inpatient. Since clinically stable, will pursue outpatient workup. ? Follow-up urine microalbumin. #History of CABG/CAD with stents ? Continue Plavix, Xarelto. Hold aspirin due to hematuria. Will discuss with cardiology tomorrow regarding discontinuing aspirin. #Gout ? Continue home allopurinol 100 mg. #Hypothyroidism ? Continue home levothyroxine 125 mcg. ? Follow-up TFTs. DNR DVT prophylaxis: Xarelto
[2024-07-27 17:53] LABS: Hemoglobin A1C 5.5 % (4.0-6.0)
[2024-07-27] MEDS: 0.9 % SODIUM CHLORIDE 1000ML 500 ML IV (17:57)
[2024-07-27] MEDS: LACTATED RINGERS 1000ML 1,000 ML 100 ML IV (19:30)
[2024-07-27] MEDS: ALLOPURINOL 100MG TABLET 100 MG PO (20:21)
[2024-07-27] MEDS: ATORVASTATIN 40MG TABLET 40 MG PO (20:22)
[2024-07-28] VITALS (7 sets, daily range): BP systolic 121–174; BP diastolic 53–91; PULSE 54–68; RESP 16–18; TEMP 36.6–36.7; O2SAT 93–96; BMI 26.2
[2024-07-28 00:09] LABS: Creatinine,Urine Random 169 mg/dL (Not Estab.)
[2024-07-28 01:10] LABS: Microalbumin > 1140.000 mg/L (0-16.7); Microalbumin/Creatinine Ratio 674.5
[2024-07-28] MEDS: LACTATED RINGERS 1000ML 1,000 ML 100 ML IV (04:22)
--- NOTE | 2024-07-28 04:46 | PC.NURSE ---
Pt A&OX4 and has tolerated room air. Lung sounds clear and bowel sounds active. Pt has remained really weak throughout the night. He has required x1 assist to ambulate to the bathroom. LR has been infusing at 100ml/hr. No complaints at this time, call light within reach.
[2024-07-28 08:05] LABS: Basophils # 0.1 K/mm3 (0-0.2); Basophils % 0.9 % (0.1-2.0); Eosinophils # 0.2 Kmm3 (0.0-0.4); Eosinophils % 3.8 % (0.1-12.0); Hematocrit 38.2 % (42.0-52.0); Hemoglobin 11.6 g/dL (14.1-18.0); Immature Granulocytes # 0.03 10^3uL; Immature Granulocytes % 0.5 %; Lymphocytes # 1.6 K/mm3 (0.7-4.5); Lymphocytes % 26.5 % (10-50); Mean Corpuscular HGB Conc 30.4 g/dL (31.8-35.4); Mean Corpuscular Hemoglobin 26.4 pg (27.0-31.2); Mean Corpuscular Volume 86.8 fl (80-94); Mean Platelet Volume 12.1 fl (7.4-10.4); Monocytes # 0.5 K/mm3 (0.1-1.0); Neutrophils # 3.5 K/mm3 (1.8-7.8); Neutrophils % 60.3 % (37.0-80.0); Nucleated Red Blood Cells # 0 10^3/uL; Nucleated Red Blood Cells % 0 %; Platelet Count 183 K/mm3 (142-424); Red Cell Distribution Width 17.4 % (11.5-17.5); Red Cell Distribution Width-SD 55.2 fL; White Blood Count 5.9 K/mm3 (4.8-10.8)
[2024-07-28 08:27] LABS: Alanine Aminotransferase 12 U/L (12-78); Albumin Level 2.8 g/dl (3.5-5.0); Albumin/Globulin Ratio 1.2 (1.1-1.8); Alkaline Phosphatase 94 U/L (38-126); Anion Gap 6.2 mEq/L (5-15); Aspartate Amino Transferase 29 U/L (17-59); Bilirubin,Total 0.4 mg/dl (0.2-1.3); Blood Urea Nitrogen 14 mg/dl (9-20); Calcium 8.2 mg/dl (8.4-10.2); Carbon Dioxide 24 mmol/L (22.0-30.0); Chloride 110 mmol/L (98-107); Chol/HDL Ratio 2.8 (1-3.5); Cholesterol 121 mg/dl (140-200); Creatinine Clearance Estimated 50 mL/min (50-200); Estimated Glomerular Filt Rate 42 ml/min (>60); GFR (African American) 51 ML/MIN (>60); Globulin 2.4 g/dL (1.3-3.2); Glucose 83 mg/dl (74-100); HDL Cholesterol 44 mg/dl (40-60); Potassium 4.2 mmoL/L (3.5-5.1); Sodium 136 mmol/L (136-145); Total Protein,Serum 5.2 g/dl (6.3-8.2); Triglycerides 80 mg/dl (30-150); VLDL Cholesterol 16 mg/dL (0-40)
[2024-07-28 08:38] LABS: Direct LDL Cholesterol 51.68 mg/dL (100-129)
[2024-07-28 08:42] LABS: Free T4 (Free Thyroxine) 2.06 ng/dl (0.78-2.19)
[2024-07-28 08:56] LABS: Thyroid Stimulating Hormone 0.65 uIU/mL (0.465-4.68)
[2024-07-28] MEDS: CLOPIDOGREL 75MG TAB 75 MG PO (09:58)
[2024-07-28] MEDS: LEVOTHYROXINE 125MCG (0.125MG) TAB 125 MCG PO (09:58)
[2024-07-28] MEDS: ALLOPURINOL 100MG TABLET 100 MG PO (09:58)
--- NOTE | 2024-07-28 10:31 | XR_ITS ---
PROCEDURE INFORMATION: Exam: XR Chest Exam date and time: 07/28/2024 11:17 AM Age: 78 years old Clinical indication: Other: Hypoxia TECHNIQUE: Imaging protocol: Radiologic exam of the chest. Views: 1 view. COMPARISON: CR XR CHEST PORTABLE 07/27/2024 10:26 AM FINDINGS: Tubes, catheters and devices: There are sternal wires consistent with previous sternotomy incision. Lungs: Unremarkable. No consolidation. Pleural spaces: Unremarkable. No pleural effusion. No pneumothorax. Heart/Mediastinum: Unremarkable. No cardiomegaly. Bones/joints: Unremarkable. IMPRESSION: No acute findings.
--- NOTE | 2024-07-28 10:36 | HMH.PHAINT1 ---
Pharmacy Intervention Comments: MEDICATION RECONCILIATION COMPLETED ON PATIENT USING EXTERNAL FILL HISTORY FROM PHARMACY AND LIST FROM CARDIOLOGY OFFICE. -INES JAEGER, NATACHAD
[2024-07-28 11:34] LABS: Adenovirus,PCR Not Detected (NotDetected); Bordetella Pertussis Not Detected (NotDetected); Chlamydophila Pneumoniae, PCR Not Detected (NotDetected); Coronavirus 19, PCR Not Detected (NotDetected); Coronavirus 229E Not Detected (NotDetected); Coronavirus NL63 Not Detected (NotDetected); Coronavirus OC43 Not Detected (NotDetected); Coronovirus HKU1,PCR Not Detected (NotDetected); Human Metapneumovirus Not Detected (NotDetected); Influenza A, PCR Not Detected (NotDetected); Influenza AH1, 2009 Not Detected (NotDetected); Influenza AH1, PCR Not Detected (NotDetected); Influenza AH3,PCR Not Detected (NotDetected); Influenza B, PCR Not Detected (NotDetected); Mycoplasma Pneumoniae, PCR Not Detected (NotDetected); Parainfluenza 1, PCR Not Detected (NotDetected); Parainfluenza 2, PCR Not Detected (NotDetected); Parainfluenza 3, PCR Not Detected (NotDetected); Parainfluenza 4, PCR Not Detected (NotDetected); Respiratory Syncytial Virus Not Detected (NotDetected); Rhinovirus/Enterovirus Not Detected (NotDetected)
--- NOTE | 2024-07-28 11:42 | HMH.PTEV ---
Physical Therapy Evaluation Rehab PT IP Evaluation Start: 07/27/24 14:37 Freq: .once Status: Active Protocol: Document 07/28/24 11:38 CHELA (Rec: 07/28/24 11:42 CHELA [id number]) Subjective/History History History 78-year-old male with a medical history significant for CAD/CABG, A-fib on Xarelto , CKD stage III, hypothyroidism who presents with several day onset of progressive weakness and chronic polyuria. Patient states he has had a several month history of recurrent weakness, polyuria, and hospitalizations for hypotension/orthostatic hypotension. In fact, he was recently admitted to hospital in [facility] for similar symptoms which improved with fluid resuscitation. He denies fever/chills, chest pain, shortness of breath, abdominal pain. He does note that he has had chronic polyuria for a while, but on chart review it looks like he does take Jardiance 10 mg. On chart review, patient had a C in April 2024 with 2 stents, but also showed that patient was intravascular depleted for which Dr. Mccallum recommended discontinuing diuretics. Workup in the ED significant for creatinine 1.8 (baseline 1 .5), UA positive for 3+ protein, 2+ blood, 3+ glucose but negative for UTI. CXR without acute findings. On arrival, patient was weak and orthostatic vitals were obtained which were grossly positive. He was given 500 mL bolus without improvement of symptoms. Case discussed with ED provider and decision was made to admit patient for progressive weakness, orthostatic hypotension. Subjective Subjective Pt reports he lives with his daughter, ramp to enter the home, and he is generally independent with all mobility with RW at baseline. He reports no new c/o at this time and agrees to OOB mobility. New diagnosis of cancer in past 12 No months? [facility] How much help from another person do you currently need... Turning from your back to your side None while in a flat bed without using bedrails? Moving from lying on back to sitting on None the side of a flat bed without using bedrails? Moving to and from a bed to a chair ( None including a wheelchair)? Standing up from a chair using your arms None ? (e.g., wheelchair, bedside chair) Walking in hospital room? None Climbing 3-5 steps with a railing? None Mobility Score 24 Mobility Level [facility] Mobility Calculator Mobility 8 Walk 250 feet or more Rehab PT IP Eval Objective Appearance Patient Behavior Appropriate Patient Orientation Person,Place,Time Difficulty following instructions none Speech Pattern Clear Ambulation Patient Able to Ambulate Yes Ambulation Observation IP General Gait Pattern Observation No Deviations/Normal Ambulation Distance (feet) 150 Ambulation Assistive Device Rolling Walker Ambulation Ability Independent Balance Ability to Arise Able, uses arms to help Sitting Balance Steady, safe Standing Balance Steady, wide stance Dynamic Sitting Balance Ability Good Dynamic Standing Balance Ability Fair Transfers Bed Transfer Ability Independent Chair Transfer Ability Independent Sit to Stand Bed Transfer Ability Independent Sit to Stand Chair Transfer Ability Independent Rehab PT IP prob,goals,plan Problems Date of Evaluation: 07/28/24 Discharge Plan PT Discharge Plan Pt appears to be at baseline for all mobility at this time and has no acute inpatient therapy needs. He is appropriate to return home with family assist once medically stable. Home health therapy may benefit his return to independence with all ADLs . Eval Complexity Eval Charge Codes 63435 - High Complexity PHYSICIAN CERTIFICATION: I certify the specified therapy services for Anup Lubin are required, authorized, and reviewed every 30 days.
--- NOTE | 2024-07-28 12:23 | P.DS_ITS ---
General Admission date:: 07/27/24 HPI HPI HPI: Anup Box is a 78-year-old male with a medical history significant for CAD/CABG, A-fib on Xarelto, CKD stage III, hypothyroidism who presents with several day onset of progressive weakness and chronic polyuria. Patient states he has had a several month history of recurrent weakness, polyuria, and hospitalizations for hypotension/orthostatic hypotension. In fact, he was recently admitted to hospital in [facility] for similar symptoms which improved with fluid resuscitation. He denies fever/chills, chest pain, shortness of breath, abdominal pain. He does note that he has had chronic polyuria for a while, but on chart review it looks like he does take Jardiance 10 mg. On chart review, patient had a LHC in April 2024 with 2 stents, but also showed that patient was intravascular depleted for which Dr. Mccallum recommended discontinuing diuretics. Workup in the ED significant for creatinine 1.8 (baseline 1.5), UA positive for 3+ protein, 2+ blood, 3+ glucose but negative for UTI. CXR without acute findings. On arrival, patient was weak and orthostatic vitals were obtained which were grossly positive. He was given 500 mL bolus without improvement of symptoms. Case discussed with ED provider and decision was made to admit patient for progressive weakness, orthostatic hypotension. Hospital Course Hospital Course Hospital Course: Anup Box is a 78-year-old male with a medical history significant for CAD/CABG, A-fib on Xarelto, CKD stage III, hypothyroidism who presents with several day onset of progressive weakness and chronic polyuria. Patient states he has had a several month history of recurrent weakness, polyuria, and hospitalizations for hypotension/orthostatic hypotension. In fact, he was recently admitted to hospital in [facility] for similar symptoms which improved with fluid resuscitation. He denies fever/chills, chest pain, shortness of breath, abdominal pain. He does note that he has had chronic polyuria for a while, but on chart review it looks like he does take Jardiance 10 mg. On chart review, patient had a LHC in April 2024 with 2 stents, but also showed that patient was intravascular depleted for which Dr. Mccallum recommended discontinuing diuretics. Workup in the ED significant for creatinine 1.8 (baseline 1.5), UA positive for 3+ protein, 2+ blood, 3+ glucose but negative for UTI. CXR without acute findings. On arrival, patient was weak and orthostatic vitals were obtained which were grossly positive. He was given 500 mL bolus without improvement of symptoms. Case discussed with ED provider and decision was made to admit patient for progressive weakness, orthostatic hypotension. #Recurrent orthostatic hypotension #Medication side effect #Early David's disease #Polyuria #TONY on CKD stage IIIa ? Patient has had recurrent episodes of weakness, orthostatic hypotension that had previously been treated with midodrine, fludrocortisone. These have since been discontinued by cardiology. He was also being treated with Bumex for suspected HFpEF, however LHC in April 2024 showed intravascular depletion for which Dr. Mccallum recommended discontinuing diuretics. Patient has not been taking Bumex. ? Upon chart review, patient has been taking Jardiance 10 mg at least since March 2024 around which symptoms started. Patient endorses significant polyuria that frequently wakes him up at night. UA here shows glucosuria, proteinuria, hematuria. ? I believe Jardiance could be a culprit into patient's recurrent orthostatic hypotension and significant polyuria, and possibly even causing hypoglycemia at home leading to weakness. Patient also states he has been having on and off penile, scrotal edema with pain which could be a sign of early David's disease. ? I have low suspicion for diabetes insipidus at this time given normal sodium. However, follow-up urine, serum osmolality, urine sodium. No evidence of UTI. ? Will discontinue Jardiance that was likely started previously for heart failure. A1c 5.5%. ? Clinically improved with IV fluid resuscitation. Orthostatic vital signs have improved. Ambulating independently with walker on room air. ? Discharged with close follow-up with cardiology. 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 Patient has recently been evaluated by urology who per patient seem to have tenderness cystoscopy which was unremarkable. ? No evidence of UTI. ? Triple therapy may explain hematuria. Hemoglobin stable at 12.5. ? Urine microalbumin > 1140. Concerning for glomerulonephritis ? Given combination of proteinuria, hematuria, and low albumin and previous history of lower extremity/groin edema I have concern for nephrotic/nephritic syndrome. ? Given [facility] long weekend, will not be able to do much of that workup including renal ultrasound inpatient. Since clinically stable, will pursue outpatient workup. ? Patient is already following certified medical aide and Mandy, has follow-up in 3 weeks. Encouraged patient to keep this appointment and let certified medical aide know his urine protein is significantly elevated. #History of CABG/CAD with stents ? Continue Plavix, Xarelto. Hold aspirin due to hematuria, but patient states h e has not been taking this. Will follow-up with cardiology for further evaluation and management. #Gout ? Continue home allopurinol 100 mg. #Hypothyroidism ? Continue home levothyroxine 125 mcg. TFTs normal. Total time spent on discharge: 40 minutes on chart review, counseling, documentation, and direct care with patient. Exam Data for Last 24 hours Vital signs and Labs for Last 24 Hours: Temp Pulse Resp BP Pulse Ox O2 Del Method 98.0 F 60 18 134/62 96 Room Air 07/28/24 09:00 07/28/24 09:00 07/28/24 09:00 07/28/24 09:00 07/28/24 09:00 07/28/24 09:00 Laboratory Results - last 24 hr 07/27/24 10:23: Hemoglobin A1c 5.5, HCV Ab MELO w/Rflx PCR Qn Negative, HIV Ag/Ab Combo Qual Negative 07/27/24 11:35: Urine RBC 3-5, Urine WBC Occasional, Ur Squamous Epith Cells None, Urine Bacteria Trace 07/27/24 12:50: Troponin I 0.02 07/27/24 16:25: Total Creatine Kinase 52 L, Troponin I 0.02 07/27/24 23:30: Urine Creatinine 169, Urine Microalbumin > 1140.000 H, Microalb/Creat Ratio 674.5, Urine Sodium 94.0 H 07/28/24 07:00: WBC 5.9, RBC 4.40 L, Hgb 11.6 L, Hct 38.2 L, MCV 86.8, MCH 26.4 L, MCHC 30.4 L, RDW 17.4, Plt Count 183, MPV 12.1 H, Neut % (Auto) 60.3, Lymph % (Auto) 26.5, [place] % (Auto) 8.0, Eos % (Auto) 3.8, Baso % (Auto) 0.9, Neut # (Auto) 3.5, Lymph # (Auto) 1.6, [place] # (Auto) 0.5, Eos # (Auto) 0.2, Baso # (Auto) 0.1, Sodium 136, Potassium 4.2, Chloride 110 H, Carbon Dioxide 24, Anion Gap 6.2, BUN 14, Creatinine 1.60 H, Estimated Creat Clear 50, Estimated GFR 42 L , Est GFR ( Amer) 51 L, Glucose 83, Calcium 8.2 L, Magnesium 2.0, Total Bilirubin 0.4, AST 29, ALT 12, Alkaline Phosphatase 94, Total Protein 5.2 L, Albumin 2.8 L, Globulin 2.4, Albumin/Globulin Ratio 1.2, Triglycerides 80, Cholesterol 121 L, LDL Cholesterol Direct 51.68 L, VLDL Cholesterol 16, HDL Cholesterol 44, Cholesterol/HDL Ratio 2.8, TSH 0.65, Free T4 2.06 I & O for Last 24 hours: Intake & Output 07/25/24 07/26/24 07/27/24 07/28/24 23:59 23:59 23:59 23:59 Intake Total 250 / 1450 1320 / 1320 Output Total 0 / 100 300 / 300 Balance 250 / 1350 1020 / 1020 Weight 92.986 kg 95.527 kg Results Data Completed and Pending Labs on day of discharge: Labs from last 24 hours 07/28/24 07/27/24 07/27/24 07:00 23:30 16:25 WBC 5.9 RBC 4.40 L Hgb 11.6 L Hct 38.2 L MCV 86.8 MCH 26.4 L MCHC 30.4 L RDW 17.4 Plt Count 183 MPV 12.1 H Neut % (Auto) 60.3 Lymph % (Auto) 26.5 [place] % (Auto) 8.0 Eos % (Auto) 3.8 Baso % (Auto) 0.9 Neut # (Auto) 3.5 Lymph # (Auto) 1.6 [place] # (Auto) 0.5 Eos # (Auto) 0.2 Baso # (Auto) 0.1 Sodium 136 Potassium 4.2 Chloride 110 H Carbon Dioxide 24 Anion Gap 6.2 BUN 14 Creatinine 1.60 H Estimated Creat Clear 50 Estimated GFR 42 L Est GFR ( Amer) 51 L Glucose 83 Hemoglobin A1c Calcium 8.2 L Magnesium 2.0 Total Bilirubin 0.4 AST 29 ALT 12 Alkaline Phosphatase 94 Total Creatine Kinase 52 L Troponin I 0.02 Total Protein 5.2 L Albumin 2.8 L Globulin 2.4 Albumin/Globulin Ratio 1.2 Triglycerides 80 Cholesterol 121 L LDL Cholesterol Direct 51.68 L VLDL Cholesterol 16 HDL Cholesterol 44 Cholesterol/HDL Ratio 2.8 TSH 0.65 Free T4 2.06 Urine RBC Urine WBC Ur Squamous Epith Cells Urine Bacteria Urine Creatinine 169 Urine Microalbumin > 1140.000 H Microalb/Creat Ratio 674.5 Urine Sodium 94.0 H HCV Ab MELO w/Rflx PCR Qn HIV Ag/Ab Combo Qual 07/27/24 07/27/24 07/27/24 12:50 11:35 10:23 WBC RBC Hgb Hct MCV MCH MCHC RDW Plt Count MPV Neut % (Auto) Lymph % (Auto) [place] % (Auto) Eos % (Auto) Baso % (Auto) Neut # (Auto) Lymph # (Auto) [place] # (Auto) Eos # (Auto) Baso # (Auto) Sodium Potassium Chloride Carbon Dioxide Anion Gap BUN Creatinine Estimated Creat Clear Estimated GFR Est GFR ( Amer) Glucose Hemoglobin A1c 5.5 Calcium Magnesium Total Bilirubin AST ALT Alkaline Phosphatase Total Creatine Kinase Troponin I 0.02 Total Protein Albumin Globulin Albumin/Globulin Ratio Triglycerides Cholesterol LDL Cholesterol Direct VLDL Cholesterol HDL Cholesterol Cholesterol/HDL Ratio TSH Free T4 Urine RBC 3-5 Urine WBC Occasional Ur Squamous Epith Cells None Urine Bacteria Trace Urine Creatinine Urine Microalbumin Microalb/Creat Ratio Urine Sodium HCV Ab MELO w/Rflx PCR Qn Negative HIV Ag/Ab Combo Qual Negative DS: Diagnosis Discharge Diagnosis (1) Orthostatic hypotension: Status: Acute Code(s): I95.1 - Orthostatic hypotension (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 Meds Home Medications and Allergies Home Medications ?Medication ?Instructions ?Recorded ?Confirmed ?Type allopurinol 100 mg tablet 100 mg PO BID 06/26/23 07/27/24 History aspirin 81 mg tablet,delayed 81 mg PO DAILY 06/26/23 07/27/24 History release atorvastatin 80 mg tablet 80 mg PO HS 06/26/23 07/27/24 History cyanocobalamin (vitamin B-12) 1,000 mcg PO WEEKLY 08/03/23 07/27/24 History 1,000 mcg capsule ergocalciferol (vitamin D2) 50 mcg 50 mcg PO DAILY 08/03/23 07/27/24 History (2,000 unit) capsule clopidogrel 75 mg tablet (Plavix) 75 mg PO DAILY #30 tabs 04/26/24 07/27/24 Rx levothyroxine 125 mcg tablet 125 mcg PO DAILY 07/27/24 07/27/24 History rivaroxaban 20 mg tablet (Xarelto) 20 mg PO QPMWITHMEAL 07/27/24 07/27/24 History New Prescriptions to Start Prescriptions: Allergies Allergy/AdvReac Type Severity Reaction Status Date / Time empagliflozin (From AdvReac Severe Orthostatic Verified 07/28/24 15:01 Jardiance) hypotension, David's disease Discharge Plan Disposition Patient Disposition: Home, Self-Care Condition: Fair Follow up Plan Follow up with: Yao Kruse [Primary Care Provider] - Enter time for follow up (please call Monday07/30/2024, due to Monday being , to schedule your hospital follow up appointment with your family doctor ! thank you! ) Samy Soliz PA [Physician Service Establishment Attendant] - Enter time for follow up Prescriptions/Medication Reconciliation: Continued atorvastatin 80 mg tablet 80 mg PO HS Patient Comments: TAKE 1 TABLET BY MOUTH EVERY NIGHT allopurinol 100 mg tablet 100 mg PO BID Patient Comments: TAKE 1 TABLET BY MOUTH EVERY MORNING AND 1 TABLET EVERY NIGHT AT BEDTIME aspirin 81 mg tablet,delayed release (DR/EC) 81 mg PO DAILY Patient Comments: TAKE 1 TABLET BY MOUTH EVERY MORNING cyanocobalamin (vitamin B-12) 1,000 mcg capsule 1,000 mcg PO WEEKLY ergocalciferol (vitamin D2) 50 mcg (2,000 unit) capsule 50 mcg PO DAILY clopidogrel [Plavix] 75 mg Tablet 75 mg PO DAILY Qty: 30 6RF levothyroxine 125 mcg tablet 125 mcg PO DAILY Patient Comments: TAKE 1 TABLET BY MOUTH EVERY MORNING Xarelto 20 mg tablet 20 mg PO QPMWITHMEAL Patient Comments: TAKE 1 TABLET BY MOUTH DAILY Discontinued Jardiance 10 mg tablet 10 mg PO DAILY 90 Days Qty: 90 3RF sulfamethoxazole-trimethoprim 400-80 mg tablet 1 tab PO BID Patient Comments: TAKE 1 TABLET BY MOUTH TWICE DAILY FOR 10 DAYS Problem Reconciliation Problems Reviewed?: Yes Patient Discharge Instructions Patient Instructions: DI for Orthostatic Hypotension, DI for Heart Failure, DI for Hematuria, Stop Light Heart Failure Print Language: Czech Providers Primary Care Provider: Yao Kruse Admit Provider: Walter Fan Attending Provider: Walter Fan
--- NOTE | 2024-07-28 12:33 | PC.NURSE ---
ROOM AIR WALK TEST: O2SAT 98% AT REST, O2SAT 94% WITH AMBULATION, O2SAT 97% RECOVERED.
[2024-07-28] MEDS: RINGERS SOLUTION,LACTATED 500 ML 999 ML IV (13:18)
--- NOTE | 2024-07-30 15:19 | CARE MANAGER ---
Called and spoke with patient regarding recent discharge. He stated that he is doing ok, has stopped medication that was discontinued and was aware of needed f/u appts with cardiology and PCP. No concerns at time of call.
== END 2024-07-28 15:40 | disposition home or self-care (01) ==
LOC: ER 12:20 → 2ND 13:46
PROVIDERS: Admitting Provider Student in an Organized Health Care Education/Training Program; Emergency Provider Emergency Medicine; PCP Internal Medicine; Visit Provider Student in an Organized Health Care Education/Training Program
DX: I95.1 Orthostatic hypotension (principal); N49.3 Fournier gangrene; E03.9 Hypothyroidism, unspecified; I25.10 Atherosclerotic heart disease of native coronary artery without angina pectoris; M10.9 Gout, unspecified; R35.89 Other polyuria; E11.9 Type 2 diabetes mellitus without complications; I45.10 Unspecified right bundle-branch block; E87.1 Hypo-osmolality and hyponatremia; R80.9 Proteinuria, unspecified; D64.9 Anemia, unspecified; R81 Glycosuria; R31.9 Hematuria, unspecified; N18.31 Chronic kidney disease, stage 3a; N17.9 Acute kidney failure, unspecified; Z79.01 Long term (current) use of anticoagulants; Z95.1 Presence of aortocoronary bypass graft; Z79.84 Long term (current) use of oral hypoglycemic drugs; Z79.02 Long term (current) use of antithrombotics/antiplatelets; Z95.5 Presence of coronary angioplasty implant and graft; Z88.8 Allergy status to other drugs, medicaments and biological substances
CPT/HCPCS: 36415; 71045; 80053; 80061; 81001; 82043; 82550; 82570; 83036; 83735; 83880; 83930; 83935; 84100; 84436; 84439; 84443; 84484; 84540; 84588; 85025; 86803; 87389; 87633; 93005; 97163; 99285; G0378; J7030; J7120

== ENCOUNTER 2024-08-20 12:11 | Outpatient (CLI) | payer MEDICARE, SELFPAY ==
--- OUTSIDE RECORDS SUMMARY | 2015-05-07 04:01 | XMS_ITS | Continuity of Care Document ---
Author Organization [facility] Address [address] [place] [address] Phone Care Team Providers Care Games Manager Name Role Phone Dwyer Miriam PENALOZA Unavailable [...] Diagnoses Date Provider Providers Copied on Encounter [facility], [address] [place], [place], [id number], [place] tel:[phone] [facility] No Information 6 Dwyer Miriam. [address], [place], [id number] , [place]. tel: [phone] OFFICE/OUTPAT IENT VISIT, EST [facility], [address] [facility] [place], , [id number], [place] tel:[phone] [facility] [address] Body mass index (BMI) 28.0-28.9, adultEssential (primary) hypertensionGout, unspecifiedGastro-e sophageal reflux disease without esophagitisUrinary tract infection 1- 6 Dwyer Miriam. [address], [place], [id number] , [place]. tel: [phone] Referring Provider: Miriam Dwyer, [place], [address] . tel:[phone] [facility], [address] [place], [place], [id number], [place] tel:[phone] [facility] No Information 6 Dwyer Miriam. [address] [place], [id number] , [place]. tel: [phone] Referring Provider: Miriam Dwyer, [place], [address] . tel:[phone] OFFICE/OUTPAT IENT VISIT, [facility], [address] [place], [place], [id number], [place] tel:[phone] [facility] Medical Hypertension, BenignGastro-esopha geal reflux diseaseGoutBody mass index 28.0 to 28.9 5 Dwyer Miriam. [address], [place], [id number] , [place]. tel: [phone] [facility], [address], [place], [id number], [place] tel:[phone] [facility] No Information 5 Dwyer Miriam. [address], [place], [id number] , [place]. tel: [phone] Referring Provider: Miriam Dwyer, [place], [address] . tel:[phone] OFFICE/OUTPAT IENT VISIT, [facility], [address], [place], [id number], [place] tel:[phone] [facility] Hypertension, BenignGastro-esopha geal reflux diseaseGoutBody mass index 28.0 to 28.9 5 Dwyer Miriam. [address], [place], [id number] , [place]. tel: [phone] OFFICE/OUTPAT IENT VISIT, [facility], [address] , [place], , [id number], [place] tel:[phone] [facility] Hypertension, Benign 5 Heriberto Valenzuela. [address], [place], [place], [id number] , [place]. tel: [phone] OFFICE/OUTPAT IENT VISIT, [facility], [address] [place], [place], [id number], [place] tel:[phone] [facility] Left leg pain 4 Dwyer Miriam. [address] [place], [place], [id number] , [place]. tel: [phone] [facility], [address] [place], [place], [id number], [place] tel:[phone] [facility] No Information 3 Dwyer Miriam. [address], [place], [id number] , [place]. tel: [phone] [facility], [address] [place], [place], [id number], [place] tel:[phone] [facility] No Information 2 Provider Juan Francisco Orantes [facility], [address] [place], [place], [id number], [place] tel:[phone] [facility] No Information 1 Provider Juan Francisco Orantes [facility], [address] [place], [place], [id number], [place] tel:[phone] [facility] No Information 0 Provider Juan [...] Record Payers Payer name Insurance type Covered democrat ID Authorfelipaa tiroger(s) Medicare [place] [id number] Social History Type Description Quantity Date Captured [...]
--- OUTSIDE RECORDS SUMMARY | 2024-08-20 12:14 | XMS_ITS | Referral Summary ---
Author Organization [employer] Address [address] [place] [address] Care Team Providers Care Golf Cart Attendant Name Role Phone Yao Kruse MD Primary Care Provider [phone] Allergies No known active allergies Medications amiodarone (PACERONE) 200 MG tablet Take 1 tablet (200 mg total) by mouth daily. 4 Active atorvastatin (LIPITOR) 80 MG tablet Take 1 tablet (80 mg total) by mouth nightly. 4 Active midodrine (PROAMATINE) 10 MG tablet Take 1 tablet (10 mg total) by mouth 3 (three) times daily before meals. 4 Active levothyroxine (SYNTHROID, LEVOTHROID) 125 MCG tablet Take 1 tablet (125 mcg total) by mouth Every morning on an empty stomach. 4 Active polyethylene glycol (GLYCOLAX) 17 gram packet Take 17 g by mouth daily as needed (for Constipation). Active nystatin (MYCOSTATIN) 100,000 unit/gram powder Apply 1 g topically 3 (three) times daily Apply to affected areas as directed. Active bumetanide (BUMEX) 2 MG tablet Take 1 tablet (2 mg total) by mouth 2 (two) times daily. Active allopurinoL (ZYLOPRIM) 100 MG tablet Take 1 tablet (100 mg total) by mouth 2 (two) times daily. Active pantoprazole (PROTONIX) 20 MG tablet Take 1 tablet (20 mg total) by mouth daily. Active aspirin 81 MG EC tablet Take 1 tablet (81 mg total) by mouth daily. 0 4 07/28/19 25 Active Problems Problem Noted Date Diagnosed Date Weakness 07/27/2023 Symptomatic anemia 07/26/2023 Hematoma of abdominal wall, initial encounter Social History Tobacco Use Types Packs/Day Years Used Date Smoking Tobacco: Never Smokeless Tobacco: Never Tobacco Cessation:Counseling Given: Not Answered Alcohol Use Standard Drinks/Week Comments Never 0 (1 standard drink = 0.6 oz pur e alcohol) Utilities Answer Date Recorded In the past 12 months, has t he electric, gas, oil, or water company threatened to shut off services in your home? No 07/24/2023 Interpersonal Safety Answer Date Record ed How often does anyone, lani cat family and friends, physically hurt you? Never 07/24/2023 How often does anyone, lani cat family and friends, insult or talk down to you? Never 07/24/2023 How often does anyone, lani cat family and friends, threaten you with harm? Never 07/24/2023 How often does anyone, lani cat family and friends, scream or curse at you? Never 07/24/2023 Housing Stability Answer Date Recorded What is your living situation today? I have a [facility] place to live 07/24/[address] you li ve. Do you have problems with any of the following? None of the above 07/24/2023 Food Insecurity Answer Date Recorded Within the past 12 months, y ou worried that your food would run out before you got money to buy more. Never true 07/24/2023 Within the past 12 months, t he food you bought just didn't last and you didn't have money to get more. Never true 07/24/2023 Transportation Needs Answer Date Record ed In the past 12 months, has l ack of reliable transportation kept you from medical appointments, meetings, work or from getting things needed for daily living? No 07/24/2023 Financial Resource Strain Answer Date R ecorded How hard is it for you to pa y for the very basics like food, housing, medical care, and heating? Would you say it is: Somewhat hard 07/24/2023 Employment Answer Date Recorded Do you want help finding or keeping work or a job? I do not need or want help 07/24/2023 Family and Community Support Answer Elia e Recorded If for any reason you need h elp with day-to-day activities such as bathing, preparing meals, shopping, managing finances, etc., do you get the help you need? I don't need any help 07/24/2023 Feeling Lonely or Isolated 0 07/23 Educational Attainment Answer Date Navi rded Do you speak a language other than Rwandan at ho me? No 07/24/2023 Do you want help with school or training? For example, starting or completing job training or getting a high school diploma, GED or equivalent. No 07/24/2023 Physical Activity Answer Date Recorded Number of minutes of exercise per week 0 07/24/2023 Alcohol Use Answer Date Recorded 5 or More Drinks Per Day Past 12 Months 0 01/21/2024 Depression Answer Date Recorded Calculation of above two rows 0 Stress Answer Date Recorded Stress means a situation in which a person feels tense, restless, nervous, or anxious, or is unable to sleep at night because his or her mind is troubled all the time. Do you feel this kind of stress these days? Not at all 07/24/2023 Disabilities Answer Date Recorded Because of a physical, menta l, or emotional condition, do you have serious difficulty concentrating, remembering, or making decisions? (5 years or older) No 07/24/2023 Because of a physical, menta l, or emotional condition, do you have difficulty doing errands alone such as visiting a doctor's office or shopping? (15 years or older) No 07/24/2023 Substance Use Answer Date Recorded How many times in the past y ear have you used prescription drugs for non-medical reasons? Never 07/24/2023 How many times in the past year have you used il legal drugs? Never 07/24/2023 Sex and Gender Information Value Date Recorded Sex Assigned at Not on file Legal Sex Male 10:08 PM CDT Gender Identity Not on file Sexual Orientation Not on file Last Filed Vital Signs Vital Sign Reading Time Taken Comments Blood Pressure 127/98 07/27/2023 2:40 PM EDT Pulse 59 07/27/2023 9:29 AM EDT Temperature 36.6 C (97.9 F) 07/27/2023 9:29 AM EDT Respiratory Rate 18 07/27/2023 9:29 AM EDT Oxygen Saturation 97% 07/27/2023 8:38 AM EDT Inhaled Oxygen Concentration - - Weight 99.3 kg (219 lb) 07/23/2023 11:19 PM EDT Height 190.5 cm (6' 3 ) 07/23/2023 11:19 PM EDT Body Mass Index 27.37 07/23/2023 11:19 PM EDT Plan of Treatment Not on file Insurance [employer] MEDICARE HMO Advance Directives For more information, please contact: [phone] * Full Code (Latest Code Status on File) Date Activated Date Inactivated Comments 07/24/2023 4:20 AM 07/27/2023 4:24 PM -Attempt Res uscitation if person has no pulse and is not breathing. -If no pulse or not breathing attempt CPR/CODE. -Call Rapid Response if patient is in distress. Care Teams Golf Cart Attendant Relationship Specialty Start Date End Date Yao Kruse MD [address] [place] [id number] PCP - General General Internal Medicine 07/24/23
--- OUTSIDE RECORDS SUMMARY | 2024-08-20 12:14 | XMS_ITS | Clinical Summary ---
Author Organization [employer] Address [address] [place] [address] Care Team Providers Care Speeder Hand Name Role Phone Yao Kruse MD Primary Care Provider [phone] Allergies No known active allergies Medications amiodarone [...] your living situation today? I have a [facility] place to live 07/24/2023 Think about the [...] Do you speak a language other than Italian at ho me? No 07/24/2023 Do you [...] 07/23/2023 11:19 PM EDT Plan of Treatment Health Maintenance Due Date Last Done Comments Depression Screening (12+) 1955 DTAP/TDAP/TD VACCINES (1 - Tdap) 12/07/1962 Pneumococcal 50+ years (1 of 1 - PCV) 12/07/1993 Shingles Vaccine (Zoster) (1 of 2) 12/07/1993 Respiratory Syncytial Virus (RSV) Adult or (1 - 1-dose 75+ series) 12/07/2018 COVID-19 VACCINE ( - season) 2023 Falls Risk Screening 03/06/2024 Medicare Initial AWV [id number] 03/07/2024 Tobacco Cessation Counseling and Screening (12+) 07/2307/24/2023 Influenza Vaccine (Season Ended) 2024 04/29/19 Insurance [employer] MEDICARE HMO Advance Directives For more information, please contact: [phone] * Full Code (Latest Code Status on File) Date Activated Date Inactivated Comments 07/24/2023 4:20 AM 07/27/2023 4:24 PM -Attempt Res uscitation if person has no pulse and is not breathing. -If no pulse or not breathing attempt CPR/CODE. -Call Rapid Response if patient is in distress. Care Teams Speeder Hand Relationship Specialty Start Date End Date Yao Kruse MD [address] [place] [address] PCP - General General Internal Medicine 07/24/23
== END 2024-08-20 23:59 | disposition home or self-care (01) ==
LOC: RT 12:12
PROVIDERS: PCP Internal Medicine; Visit Provider Physician Assistant
DX: I48.91 Unspecified atrial fibrillation (principal); I48.92 Unspecified atrial flutter; I49.1 Atrial premature depolarization; I47.19 Other supraventricular tachycardia; I49.3 Ventricular premature depolarization; I25.10 Atherosclerotic heart disease of native coronary artery without angina pectoris; I10 Essential (primary) hypertension; G47.33 Obstructive sleep apnea (adult) (pediatric); E03.9 Hypothyroidism, unspecified
CPT/HCPCS: 93270

== ENCOUNTER 2024-09-08 11:08 | Emergency (ER) | payer MEDICARE, SELFPAY ==
--- OUTSIDE RECORDS SUMMARY | 2015-05-07 04:01 | XMS_ITS | Continuity of Care Document ---
Author Organization [facility] Address [address] [place] [address] Phone Care Team Providers Care Adolescent Counselor Name Role Phone Dwyer Miriam PENALOZA Unavailable [...] Provider Providers Copied on Encounter [facility], [address] [place], [place], [id number], [place] tel:[phone] [facility] No Information 6 Dwyer Miriam. [address], [place], [id number] , [place]. tel: [phone] OFFICE/OUTPAT IENT VISIT, EST [facility], [address] [facility] [place], , [id number], [place] tel:[phone] [facility] [address] Body mass index (BMI) 28.0-28.9, adultEssential (primary) hypertensionGout, unspecifiedGastro-e sophageal reflux disease without esophagitisUrinary tract infection 1- 6 Dwyer Miriam. [address], [place], [id number] , [place]. tel: [phone] Referring Provider: Miriam Dwyer, [place], [address] . tel:[phone] [facility], [address] [place], [place], [id number], [place] tel:[phone] [facility] No Information 6 Dwyer Miriam. [address] [place], [id number] , [place]. tel: [phone] Referring Provider: Miriam Dwyer, [place], [address] . tel:[phone] OFFICE/OUTPAT IENT VISIT, Counts include 234 beds at the [facility], [address] [place], [place], [id number], [place] tel:[phone] [facility] Hypertension, BenignGastro-esopha geal reflux diseaseGoutBody mass index 28.0 to 28.9 5 Dwyer Miriam. [address], [place], [id number] , [place]. tel: [phone] [facility], [address], [place], [id number], [place] tel:[phone] [facility] No Information 5 Dwyer Miriam. [address], [place], [id number] , [place]. tel: [phone] Referring Provider: Miriam Dwyer, [place], [address] . tel:[phone] OFFICE/OUTPAT IENT VISIT, Counts include 234 beds at the [facility], [address], [place], [id number], [place] tel:[phone] [facility] Hypertension, BenignGastro-esopha geal reflux diseaseGoutBody mass index 28.0 to 28.9 5 Dwyer Miriam. [address], [place], [id number] , [place]. tel: [phone] OFFICE/OUTPAT IENT VISIT, Counts include 234 beds at the [facility], [address] , [place], , [id number], [place] tel:[phone] [facility] Hypertension, Benign 5 Heriberto Valenzuela. [address], [place], [place], [id number] , [place]. tel: [phone] OFFICE/OUTPAT IENT VISIT, Counts include 234 beds at the [facility], [address] [place], [place], [id number], [place] tel:[phone] [facility] Left leg pain 4 Dwyer Miriam. [address] [place], [place], [id number] , [place]. tel: [phone] [facility], [address] [place], [place], [id number], [place] tel:[phone] [facility] No Information 3 Dwyer Miriam. [address] [place], [place], [id number] , [place]. tel: [phone] [facility], [address] [place], [place], [id number], [place] tel:[phone] [facility] No Information 2 Provider Juan Francisco Orantes [facility], [address] [place], [place], [id number], [place] tel:[phone] [facility] No Information 1 Provider Juan Francisco Orantes [facility], [address] [place], [place], [id number], [place] tel:[phone] [facility] No Information 0 Provider Juan [...] Covered democrat ID Authorfelipaa tiroger(s) Medicare MB [id number] Social History Type Description Quantity Date Captured [...]
[2024-09-08] VITALS (14 sets, daily range): BP systolic 177–209; BP diastolic 90–127; PULSE 55–67; RESP 12–20; TEMP 36.9–37.1; O2SAT 96–98; BMI 31.8
--- NOTE | 2024-09-08 11:16 | ECG_ITS ---
APPROVED REPORT Exam: Resting ECG HR:58 bpm ECG Measurements Heart Rate 58 AXES PA 142 P 102 QRSd 142 QRS -73 QT 495 T 71 QTc 491 Conclusion Slow atrial fibrillation with a rate of 58 bpm RIGHT BUNDLE BRANCH BLOCK [120+ ms QRS DURATION, UPRIGHT V1, 40+ ms S IN I/aVL/V4/V5/V6] LEFT ANTERIOR FASCICULAR BLOCK [QRS AXIS <= -45, QR IN I, RS IN II] POSSIBLE ANTERIOR MYOCARDIAL INFARCTION , OF INDETERMINATE AGE [30 ms Q WAVE IN V3/V4, OR R < 0.2 mV IN V4] No acute STEMI. No significant change from prior EKG Electronically signed by : NATANAEL BARRETO, 09/08/2024 13:02:52
--- NOTE | 2024-09-08 11:19 | CT_ITS ---
PROCEDURE INFORMATION: Exam: CT Head Without Contrast Exam date and time: 09/08/2024 11:36 AM Age: 78 years old Clinical indication: Altered mental status/memory loss; Additional info: Weakess, confusion, high BP TECHNIQUE: Imaging protocol: Computed tomography of the head without contrast. Radiation optimization: All CT scans at this facility use at least one of these dose optimization techniques: automated exposure control; mA and/or kV adjustment per patient size (includes targeted exams where dose is matched to clinical indication); or iterative reconstruction. COMPARISON: US CA CAROTID DUPLEX BI 12/18/2023 3:02 PM FINDINGS: Brain: The brain demonstrates diffuse volume loss. There is white matter hypodensity most consistent with chronic small vessel ischemic change. Cerebral ventricles: The ventricles and CSF spaces are proportionately enlarged. Paranasal sinuses: There is mucoperiosteal reaction in the left frontal sinus Mastoid air cells: Visualized mastoid air cells are well aerated. Orbital cavities: There are postoperative changes from prior cataract surgery. Bones: No acute fracture. Soft tissues: Unremarkable. IMPRESSION: 1. Atrophy and the sequela of chronic small vessel ischemia. 2. There is no acute intracranial abnormality.
--- NOTE | 2024-09-08 11:19 | XR_ITS ---
PROCEDURE INFORMATION: Exam: XR Chest Exam date and time: 09/08/2024 11:39 AM Age: 78 years old Clinical indication: Shortness of breath and other: Weakness; Additional info: Weakness, high BP, SOA TECHNIQUE: Imaging protocol: Radiologic exam of the chest. Views: 1 view. COMPARISON: CR XR CHEST PORTABLE 07/28/2024 11:17 AM FINDINGS: Lungs: No consolidation. Pleural spaces: No pleural effusion. No pneumothorax. Heart/Mediastinum: The heart is upper limits of normal in size. Vasculature: The aorta is slightly tortuous. Bones/joints: There are sternal wires. IMPRESSION: 1. No evidence of active pulmonary disease. 2. A followup PA and lateral radiograph is recommended when the patient is clinically able.
--- NOTE | 2024-09-08 11:19 | PC.NURSE ---
FSBS is 94 at this time.
--- NOTE | 2024-09-08 11:26 | PC.NURSE ---
call made to resp for [facility]
--- NOTE | 2024-09-08 11:27 | HMH.EDGENADL ---
Discharge Plan Disposition Chief Complaint: Weakness Prescriptions Prescriptions: No Action midodrine 2.5 mg tablet 2.5 mg PO TID Qty: 90 0RF Rx Instructions: do not give last dose of day after 6PM or within 4 hrs of bedtime atorvastatin 80 mg tablet 80 mg PO HS Patient Comments: TAKE 1 TABLET BY MOUTH EVERY NIGHT allopurinol 100 mg tablet 100 mg PO BID Patient Comments: TAKE 1 TABLET BY MOUTH EVERY MORNING AND 1 TABLET EVERY NIGHT AT BEDTIME amiodarone 100 mg tablet 100 mg PO DAILY Qty: 30 2RF clopidogrel [Plavix] 75 mg Tablet 75 mg PO DAILY Qty: 30 6RF levothyroxine 125 mcg tablet 125 mcg PO DAILY Patient Comments: TAKE 1 TABLET BY MOUTH EVERY MORNING Xarelto 20 mg tablet 20 mg PO QPMWITHMEAL Patient Comments: TAKE 1 TABLET BY MOUTH DAILY Referrals Follow up/Referrals: Samy Soliz PA [Physician Home Health Scheduler, Cardiology] - See instructions Walter Hernandez MD [Staff Physician, Urology] - See instructions Yao Kruse [Primary Care Provider, Medical] - See instructions Activity Restrictions/Add. Instructions Additional Instructions/Restrictions: You were evaluated in the emergency department today. Please stop taking your midodrine. Follow-up closely in cardiology clinic tomorrow at 10 AM for blood pressure recheck per Dr. Mccallum. You can see Samy in clinic. Return to the emergency department for new or worsening symptoms. Incidentally, you were noted to have some blood in your urine. Please follow-up with urology for this. Clinical Impressions Clinical Impression: HBP (high blood pressure), Cerebrovascular small vessel disease, Hematuria Instructions Patient Instructions: DI for High Blood Pressure Print Language Print Language: Faroese Discharge ED Provider: Sandi Rush General Adult HPI General Chief complaint: Weakness Stated complaint: weak. soa, high b/p, headaches w/confusion Time Seen by Provider: 09/08/24 11:16 History of Present Illness HPI narrative: This patient is an 78-year-old male with extensive cardiovascular history including CAD status post CABG, atrial fibrillation on amiodarone and Xarelto, CKD, CHF with an EF of 60% as of March, hypothyroidism, and previous hypertension but then chronic longstanding hypotension requiring midodrine presenting to the emergency department for evaluation with concern for just feeling unwell. According to the patient, he woke up this morning and just was not feeling right. He states he felt very very bad overall, but he subsequently started feeling better prior to coming in here. He notes that he was not going to come since he started feeling better, but his daughter felt like he was confused and wanted to bring him in. He states he has had a very progressive functional decline over the last several months with multiple hospitalizations and just has not been doing well overall. He states that he feels his condition is worsening overall. He denies any acute symptoms such as headache, vision change, numbness, tingling, unilateral weakness, chest pain, shortness of breath, abdominal pain, nausea, vomiting, changes in bowel movements, or other concerns. He reports he is feeling a little bit better right now, though he chronically feels bad at baseline, but denies any acute symptoms at this moment. Related Data Home Medications ?Medication ?Instructions ?Recorded ?Confirmed allopurinol 100 mg tablet 100 mg PO BID 06/26/23 08/20/24 atorvastatin 80 mg tablet 80 mg PO HS 06/26/23 08/20/24 levothyroxine 125 mcg tablet 125 mcg PO DAILY 07/27/24 08/20/24 rivaroxaban 20 mg tablet (Xarelto) 20 mg PO QPMWITHMEAL 07/27/24 08/20/24 Previous Rx's ?Medication ?Instructions ?Recorded clopidogrel 75 mg tablet (Plavix) 75 mg PO DAILY #30 tabs 04/26/24 amiodarone 100 mg tablet 100 mg PO DAILY #30 tabs 08/16/24 midodrine 2.5 mg tablet 2.5 mg PO TID #90 tabs 08/20/24 Allergies Allergy/AdvReac Type Severity Reaction Status Date / Time empagliflozin (From AdvReac Severe Orthostatic Verified 08/20/24 11:37 Jardiance) hypotension, David's disease [facility] Disclaimer: The information contained in this section may have been updated after the patient was seen, as this information can be updated by other users. Medical History Poor sleep ALICIA (obstructive sleep apnea) Confusion Abnormal stress test Syncope Hypokalemia Hypotension Excessive weight loss Bradycardia Pericardial effusion (HFpEF) heart failure with preserved ejection fraction Coronary artery disease Lymphedema of both lower extremities CHF (congestive heart failure) Hypertension Atrial fibrillation Abnormal electrocardiogram [ECG] [EKG] Kidney damage Surgical History History of cardiac cath S/P CABG x 3 Family History Other No significant family history Social History Smoking Status: Never smoker alcohol intake: never substance use type: denies use current occupational status: retired Travel in the last 8 weeks?: Inside the [place] Have you lived/traveled outside US in past 30 days?: No Contact w/someone who lives/traveled outside US past 30 days?: No Exposure to someone with infectious disease in past 14 days?: No Do you have a fever (greater than 100.4 F or 38 C)?: No Have you tested positive for COVID-19?: No Exposed to someone with COVID-19 in past 14 days?: No Do you have a sore throat?: No Do you have a cough?: No Do you have any weakness?: No Do you have any diarrhea?: No Are you experiencing any unusual bleeding?: No Do you have any muscle aches/pain?: No Do you have any abdominal pain?: No Are you experiencing loss of taste or smell?: No Other Medical History Have you received the Flu Vaccine for this season: No Have you received the Pneumonia Vaccine: Yes ROS Obtained: Yes All systems reviewed & no additional complaints except as documented Physical Exam General General appearance: alert and in no apparent distress Head Head exam: atraumatic and normocephalic Eye Eye exam: Present normal appearance, PERRL and EOMI ENT ENT exam: Present normal exam, normal oropharynx, mucous membranes moist and normal external ear exam Neck Neck exam: Present normal inspection, full ROM and trachea midline; Absent tenderness Chest Chest inspection: Present normal inspection and symmetric chest wall rise; Absent tenderness Respiratory Respiratory exam: Present normal lung sounds bilaterally; Absent respiratory distress, wheezes, stridor or accessory muscle use Cardiovascular Cardiovascular exam: Present regular rate and normal rhythm Abdominal Exam Abdominal exam: Present soft; Absent distention, tenderness or guarding Extremities Exam Extremities exam: Present normal inspection, full ROM and normal capillary refill; Absent tenderness or edema Back Exam Back exam: Present normal inspection and full ROM; Absent tenderness Neurological Exam Neurological exam: Present alert, oriented X3, CN II-XII intact and normal gait; Absent motor sensory deficit Psychiatric Psychiatric exam: Present flat affect and other (Flat affect, slow to respond) Skin Skin exam: Present warm and dry Medical Decision Making Medical Records Medical records reviewed: Yes I reviewed the patient's medical records. Screening: Per USPSTF and CDC recommendations, given the prevalence of disease in our region, it is our hospital?s policy to screen for HIV and viral Hepatitis for all patients aged 18 and over and those with ongoing risk factors. Charan Inquiry Pt receiving controlled substance: No Vital Signs: 09/08/24 11:11 09/08/24 11:15 09/08/24 11:19 Temperature 98.7 F Temperature Source Oral Pulse Rate 61 60 Pulse Rate [Right] 62 Respiratory Rate 17 14 Blood Pressure 179/91 H 197/102 H Blood Pressure [Right Arm] 179/91 H Blood Pressure Mean [Right Arm] 120 Blood Pressure Source Blood Pressure Source [Right Arm] Automatic Cuff Blood Pressure Position Blood Pressure Position [Right Arm] Supine 02 Sat by Pulse Oximetry 96 97 98 Oxygen Delivery Method Room Air 09/08/24 11:21 09/08/24 11:31 09/08/24 11:31 Temperature 98.7 F Temperature Source Oral Pulse Rate 60 62 55 L Pulse Rate [Right] Respiratory Rate 18 17 20 Blood Pressure 201/96 H 179/91 H 197/90 H Blood Pressure [Right Arm] Blood Pressure Mean [Right Arm] Blood Pressure Source Automatic Cuff Blood Pressure Source [Right Arm] Blood Pressure Position Supine Blood Pressure Position [Right Arm] 02 Sat by Pulse Oximetry 98 96 98 Oxygen Delivery Method Room Air 09/08/24 12:00 09/08/24 12:31 09/08/24 13:01 Temperature Temperature Source Pulse Rate 57 L 56 L 58 L Pulse Rate [Right] Respiratory Rate 14 20 12 Blood Pressure 209/102 H 190/94 H 198/97 H Blood Pressure [Right Arm] Blood Pressure Mean [Right Arm] Blood Pressure Source Blood Pressure Source [Right Arm] Blood Pressure Position Blood Pressure Position [Right Arm] 02 Sat by Pulse Oximetry 97 96 97 Oxygen Delivery Method 09/08/24 13:31 09/08/24 14:01 09/08/24 14:31 Temperature Temperature Source Pulse Rate 55 L 59 L 56 L Pulse Rate [Right] Respiratory Rate 16 12 15 Blood Pressure 200/103 H 198/100 H 186/90 H Blood Pressure [Right Arm] Blood Pressure Mean [Right Arm] Blood Pressure Source Blood Pressure Source [Right Arm] Blood Pressure Position Blood Pressure Position [Right Arm] 02 Sat by Pulse Oximetry 96 97 98 Oxygen Delivery Method Lab Data Lab results reviewed: Yes I reviewed the patient's lab results. Lab Results 09/08/24 11:23: WBC 5.5, RBC 4.81, Hgb 12.8 L, Hct 40.9 L, MCV 85.0, MCH 26.6 L, MCHC 31.3 L, RDW 18.8 H, Plt Count 200, MPV 11.9 H, Neut % (Auto) 56.5, Lymph % (Auto) 28.9, [place] % (Auto) 8.2, Eos % (Auto) 5.1, Baso % (Auto) 0.9, Neut # (Auto) 3.1, Lymph # (Auto) 1.6, [place] # (Auto) 0.5, Eos # (Auto) 0.3, Baso # (Auto) 0.1, PT 13.8 H, INR 1.27 H, D-Dimer 0.36, Sodium 137, Potassium 4.3, Chloride 99, Carbon Dioxide 33 H, Anion Gap 9.3, BUN 14, Creatinine 1.40 H, Estimated Creat Clear 69, Estimated GFR 49 L, Est GFR ( Amer) 59, Glucose 103 H, Calcium 9.1, Total Bilirubin 0.7, AST 24, ALT 14, Alkaline Phosphatase 89, Troponin I 0.02, NT-Pro-B Natriuret Pep 3340 H, Total Protein 5.8 L, Albumin 3.3 L, Globulin 2.5, Albumin/Globulin Ratio 1.3, Lipase 50, TSH 1.65, Thyroxine (T4) 11.5 H 09/08/24 11:26: VBG pH 7.38, VBG pCO2 49.3, VBG pO2 34.3, VBG HCO3 28.6, VBG Total CO2 30.2 H, VBG O2 Saturation 65.3, VBG Base Excess 3.5 H, VBG Lactic Acid 1.3, SARS-CoV-2 (PCR) Not detected, Influenza A Untype (PCR) Not detected, Influenza Type B (PCR) Not detected 09/08/24 14:35: Troponin I 0.02 09/08/24 15:08: Urine Color Yellow, Urine Appearance Clear, Urine pH 7.5, Ur Specific [place] 1.020, Urine Protein 3+ A, Urine Glucose (UA) Negative, Urine Ketones Negative, Urine Blood 1+ A, Urine Nitrate Negative, Urine Bilirubin Negative, Urine Urobilinogen 1.0, Ur Leukocyte Esterase Negative, Urine RBC 3-5, Urine WBC 5-10, Ur Squamous Epith Cells 3-5, Urine Bacteria 1+ 09/08/24 11:23 09/08/24 11:23 Orders (Tests/Meds): ORDERS Category Date Time Status CT head/brain wo con Stat Cat Scan 09/08/24 11:19 Completed CXR --portable [XR chest portable] Stat Exams 09/08/24 11:19 Completed BNP [NT Pro Brain Natriuretic Pep.] Stat Lab 09/08/24 11:23 Completed Complete Blood Count Auto Diff Stat Lab 09/08/24 11:23 Completed Comprehensive Metabolic Panel Stat Lab 09/08/24 11:23 Completed D-Dimer Stat Lab 09/08/24 11:23 Completed Lipase Stat Lab 09/08/24 11:23 Completed Prothrombin Time INR Stat Lab 09/08/24 11:23 Completed Rapid PCR Covid and Flu A/B Stat Lab 09/08/24 11:26 Completed T4 (Thyroxine) Stat Lab 09/08/24 11:23 Completed TSH [Thyroid Stimulating Hormone] Stat Lab 09/08/24 11:23 Completed Trop I [Troponin I] Stat Lab 09/08/24 11:23 Completed Troponin I Q3H Lab 09/08/24 14:35 Completed Troponin I Q3H Lab 09/08/24 17:30 Ordered UA [Urinalysis and Microscopic] Stat Lab 09/08/24 15:08 Completed Urine Culture Stat Micro 09/08/24 15:28 Ordered VBG [Venous Blood Gas] Stat RT 09/08/24 11:26 Completed ECG Data Tracing #1: I reviewed this ECG and interpreted as documented below: Rate controlled atrial fibrillation at a rate of 58 bpm. No acute STEMI. No significant interval change from prior EKG. ECG initial impression date: 09/08/24 ECG initial impression time: 11:18 Medical Decision Narrative: In summary, this patient is a 78-year-old male presenting to the Emergency Department for evaluation of feeling generally bad this morning with vague symptoms. Daughter also reported confusion. Differential diagnoses considered include but are not limited to CVA, dysrhythmia, TONY, UTI, viral syndrome, electrolyte derangements, ACS, progressive functional decline. Ruling out the most morbid conditions drove assessment. It should be noted patient's history includes extensive cardiovascular history as detailed in HPI. He also has had a progressive functional decline with multiple hospitalizations this year for vague symptoms, recurrent orthostatic hypotension, general debility. All these things are likely not at goal therapy. This complicates all aspects of care by increasing patient's risk for morbidity. I reviewed patient's past medical records and noted prior evaluation by cardiology 08/20/2024, at which point the patient was noted to be hypertensive with systolics in the 160s on his home midodrine. Given this, it was decreased. He has a neuroreferral for this functional decline, but is not scheduled until November. On exam, the patient is sitting upright in no acute distress. He has vague complaints of not feeling well this morning but does not have any other specific complaints and states he currently feels better. He is alert and oriented x 4, neurologically intact without any focal deficit. He does have flat affect and is slow to respond but does not seem to be confused or have any deficits currently. Cardiopulmonary and abdominal exams are benign. He is hypertensive with systolics in the 190s on initial assessment. He is in rate controlled A-fib. Workup included lab evaluation to evaluate for fractures, metabolic, cardiac derangements of him generally feeling unwell today. I also obtained CT head without contrast and chest x-ray. EKG was obtained that demonstrates rate controlled A-fib with no significant change from prior EKG. I independently interpreted the CT and x-ray prior to the radiologist read and noted microvascular change without large area of ischemia, no intracranial hemorrhage, no intracranial mass; no large focal consolidation concerning for pneumonia or pneumothorax on the chest x-ray. Please see their read for final interpretation. Labs were obtained that demonstrated reassuring CBC with chronic anemia. No significant elevation in leukocytosis. Chemistry demonstrates a creatinine around his baseline. Troponin is also around his baseline at 0.02. BNP is not significantly changed from prior and he does not look volume overloaded on assessment. T4 is very mildly elevated with a normal TSH. I do not feel this is clinically significant at this time. His blood pressure has remained persistently elevated with systolics in the 190s on assessment. He is still taking the midodrine at home, which was decreased after his blood pressure was noted to be in the 160s to 170s in clinic 2 weeks ago. He is asymptomatic with this. Given that he had this acute episode this morning which he felt very bad, I feel he would benefit from obtaining second troponin to rule out cardiac causes, though he is asymptomatic now. At 1300, patient was placed in ED observation status pending second troponin to determine whether or not the patient would be appropriate for discharge versus admission. The patient was provided serial reevaluations and cardiac monitoring while awaiting ultimate disposition. On multiple subsequent reassessments, the patient is persistently hypertensive but otherwise is sitting upright in no acute distress with no symptoms or concerns or complaints. Second troponin resulted and is negative. Urinalysis resulted and has some blood and white blood cells, but is slightly contaminated with squamous cells. He does not have any specific UTI symptoms and is not overtly concerning for infection with negative nitrates or leukocyte esterase. I did send a culture just to be on the safe side. Ultimately, his workup is been reassuring and stable without significant change from his baseline. He is persistently hypertensive, for which he is going to stop taking the midodrine. I called and had an interactive discussion with Dr. Mccallum about this as well who recommended close follow-up tomorrow in cardiology clinic for recheck of his blood pressure once he stops the midodrine. Patient is agreeable with this. He was discharged with plan for close follow-up and strict return precautions at 15 2:30 hours and 30 minutes in ED observation status Critical Care Critical Care Time Critical Care Time: No
--- OUTSIDE RECORDS SUMMARY | 2024-09-08 11:28 | XMS_ITS | Clinical Summary ---
Author Organization [employer] ([place], [place], [place], [place]) Address [address] [place] [address] Care Team Providers Care Hypertrichologist Name Role Phone Yao Kruse MD Primary Care Provider [phone] Allergies No known active allergies Medications amiodarone [...] (20 mg total) by mouth daily. Active Active Problems Problem Noted Date Diagnosed Date [...] off services in your home? No 07/24/2023 Food Insecurity Answer Date Recorded Within [...] Do you speak a language other than Azeri at [facility]? No 07/24/2023 Do you want help with school or training? For example, starting or completing job training or getting a high school diploma, GED or equivalent. No 07/24/2023 Physical Activity Answer Date Recorded Number of minutes of exercise per week 0 07/24/2023 Substance Use Answer Date Recorded How [...] Counseling and Screening (12+) 07/2307/24/2023 Influenza Vaccine (#1) 2024 04/29/2023 Insurance MEDICARE HMO Advance Directives For more information, please contact: [phone] * Full Code (Latest Code Status on File) Date Activated Date Inactivated Comments 07/24/2023 4:20 AM 07/27/2023 4:24 PM -Attempt Res uscitation if person has no pulse and is not breathing. -If no pulse or not breathing attempt CPR/CODE. -Call Rapid Response if patient is in distress. Care Teams Hypertrichologist Relationship Specialty Start Date End Date Yao Kurse MD [address] [place] [address] PCP - General General Internal Medicine 07/24/23
--- OUTSIDE RECORDS SUMMARY | 2024-09-08 11:28 | XMS_ITS | Referral Summary ---
Author Organization [employer] ([place], [place], [place], [place]) Address [address] [place] [address] Care Team Providers Care Forwarder Operator Name Role Phone Yao Kruse MD Primary Care Provider [phone] Allergies No known active allergies Medications amiodarone [...] Do you speak a language other than Macedonian at [facility]? No 07/24/2023 Do you want help with [...] Advance Directives For more information, please contact: [phone] * Full Code (Latest Code Status on File) Date Activated Date Inactivated Comments 07/24/2023 4:20 AM 07/27/2023 4:24 PM -Attempt Res uscitation if person has no pulse and is not breathing. -If no pulse or not breathing attempt CPR/CODE. -Call Rapid Response if patient is in distress. Care Teams Forwarder Operator Relationship Specialty Start Date End Date Yao Kruse MD [address] [place] [address] [place] [address] PCP - General General Internal Medicine 07/24/23
[2024-09-08 11:32] LABS: Hematocrit 40.9 % (42.0-52.0); Hemoglobin 12.8 g/dL (14.1-18.0); Immature Granulocytes % 0.4 %; Mean Corpuscular HGB Conc 31.3 g/dL (31.8-35.4); Mean Corpuscular Hemoglobin 26.6 pg (27.0-31.2); Mean Corpuscular Volume 85.0 fl (80-94); Nucleated Red Blood Cells % 0 %; Platelet Count 200 K/mm3 (142-424); Red Blood Count 4.81 M/mm3 (4.60-6.20); Red Cell Distribution Width-SD 58.1 fL; White Blood Count 5.5 K/mm3 (4.8-10.8)
[2024-09-08 11:34] LABS: Coronavirus 19, PCR Not Detected (NotDetected); Influenza A, PCR Not Detected (NotDetected); Influenza B, PCR Not Detected (NotDetected)
[2024-09-08 11:39] LABS: Lactate Venous 1.3 mmol/L (0.4-2.0); VBG HCO3 28.6 mmol/L (23-30); VBG PCO2 49.3 mmol/L (35-51); VBG PH 7.38 mmol/L (7.31-7.41); VBG PO2 34.3 mmol/L (28-40)
[2024-09-08 12:05] LABS: INR 1.27 (0.9-1.1); Prothrombin Time 13.8 seconds (10.1-12.5)
[2024-09-08 12:10] LABS: Alanine Aminotransferase 14 U/L (12-78); Albumin Level 3.3 g/dl (3.5-5.0); Albumin/Globulin Ratio 1.3 (1.1-1.8); Alkaline Phosphatase 89 U/L (38-126); Anion Gap 9.3 mEq/L (5-15); Aspartate Amino Transferase 24 U/L (17-59); Bilirubin,Total 0.7 mg/dl (0.2-1.3); Blood Urea Nitrogen 14 mg/dl (9-20); Calcium 9.1 mg/dl (8.4-10.2); Carbon Dioxide 33 mmol/L (22.0-30.0); Chloride 99 mmol/L (98-107); Creatinine Clearance Estimated 69 mL/min (50-200); Creatinine,Serum 1.40 mg/dl (0.66-1.25); Estimated Glomerular Filt Rate 49 ml/min (>60); GFR (African American) 59 ML/MIN (>60); Globulin 2.5 g/dL (1.3-3.2); Glucose 103 mg/dl (74-100); Lipase 50 U/L (23-300); Potassium 4.3 mmoL/L (3.5-5.1); Sodium 137 mmol/L (136-145); Total Protein,Serum 5.8 g/dl (6.3-8.2)
[2024-09-08 12:22] LABS: NT Pro Brain Natriuretic Pep. 3340 pg/mL (0-450); Troponin I 0.02 ng/ml (0.00-0.034)
[2024-09-08 12:27] LABS: T4 (Thyroxine) 11.5 ug/dl (5.53-11.0)
[2024-09-08 12:28] LABS: D-Dimer 0.36 ug/mL (0.0-0.5)
[2024-09-08 12:40] LABS: Thyroid Stimulating Hormone 1.65 uIU/mL (0.465-4.68)
--- NOTE | 2024-09-08 13:55 | PC.NURSE ---
rounded on patient, no needs voiced at this time.
[2024-09-08 15:12] LABS: Microscopic, Urine URINE MICROSCOPIC (MICROSCOPIC)
[2024-09-08 15:14] LABS: Troponin I 0.02 ng/ml (0.00-0.034)
[2024-09-08 15:18] LABS: Bilirubin,Urine Negative (Negative); Color,Urine YELLOW (Yellow); Glucose,Urine (UA) Negative (Negative); Ketones,Urine Negative (Negative); Leukocyte Esterase,Urine Negative (Negative); PH,Urine 7.5 (5.0-8.5); Protein,Urine 3+ (Negative); Specific Gravity, Urine 1.020 (1.005-1.030); Urobilinogen,Urine 1.0 EU/dl (0.2)
[2024-09-08 15:26] LABS: Bacteria,Urine 1+ /lpf
== END 2024-09-08 16:05 | disposition home or self-care (01) ==
PROVIDERS: Emergency Provider Emergency Medicine; PCP Internal Medicine
DX: R53.1 Weakness (principal); I10 Essential (primary) hypertension; R31.9 Hematuria, unspecified; I67.9 Cerebrovascular disease, unspecified; E03.9 Hypothyroidism, unspecified
CPT/HCPCS: 70450; 71045; 80053; 81001; 82803; 83690; 83880; 84436; 84443; 84484; 85025; 85378; 85610; 87086; 87636; 93005; 99285

== ENCOUNTER 2024-09-10 12:07 | Observation (INO) | payer MEDICARE, SELFPAY ==
--- OUTSIDE RECORDS SUMMARY | 2015-05-07 04:01 | XMS_ITS | Continuity of Care Document ---
Author Organization [facility] Address [address] [place] [address] Phone Care Team Providers Care Service Technician Copier Name Role Phone Dwyer Miriam PENALOZA Unavailable Unavailable Allergies, Adverse Reactions, Alerts Substance Reaction Status Criticality No Known Allergies Active No Inform ation Procedures Procedure Date URINALYSIS, NONAUTO W/SCOPE OFFICE/OUTPATIENT VISIT, EST ROUTINE VENIPUNCTURE OFFICE/OUTPATIENT VISIT, EST ROUTINE VENIPUNCTURE OFFICE/OUTPATIENT VISIT, EST OFFICE/OUTPATIENT VISIT, EST OFFICE/OUTPATIENT VISIT, EST Advance Directives Directive Yes / No Effective Date File Name No Information Encounters Encounter Description Practice Location Reason(s) For Visit Diagnoses Date Provider Providers Copied on Encounter [facility], [address] [place], [place], [id number], [place] tel:[phone] [facility] No Information 6 Dwyer Miriam. [address], [place], [id number] , [place]. tel: [phone] OFFICE/OUTPAT IENT VISIT, EST [facility], [address] [place], , [id number], [place] tel:[phone] [facility] [address] Evans Body mass index (BMI) 28.0-28.9, adultEssential (primary) hypertensionGout, unspecifiedGastro-e sophageal reflux disease without esophagitisUrinary tract infection 1- 6 Dwyer Miriam. [address], [place], [id number] , [place]. tel: [phone] Referring Provider: Miriam Dwyer, [place], [address] . tel:[phone] [facility], [address] [place], [place], [id number], [place] tel:[phone] [facility] No Information 6 Dwyer Miriam. [address] [place], [id number] , [place]. tel: [phone] Referring Provider: Miriam Dwyer, [place], [address] . tel:[phone] OFFICE/OUTPAT IENT VISIT, [facility], [address] [place], [place], [id number], [place] tel:[phone] [facility] Hypertension, BenignGastro-esopha geal reflux diseaseGoutBody mass index 28.0 to 28.9 5 Dwyer Miriam. [address], [place], [id number] , [place]. tel: [phone] [facility], [address], [place], [id number], [place] tel:[phone] [facility] No Information 5 Dwyer Miriam. [address], [place], [id number] , [place]. tel: [phone] Referring Provider: Miriam Dwyer, [place], [address] . tel:[phone] OFFICE/OUTPAT IENT VISIT, [facility], [address], [place], [id number], [place] tel:[phone] [facility] Medical Hypertension, BenignGastro-esopha geal reflux diseaseGoutBody mass index 28.0 to 28.9 5 Dwyer Miriam. [address], [place], [id number] , [place]. tel: [phone] OFFICE/OUTPAT IENT VISIT, [facility], [address] , [place], , [id number], [place] tel:[phone] [facility] Hypertension, Benign 5 Heriberto Valenzuela. [address], [place], [place], [id number] , [place]. tel: [phone] OFFICE/OUTPAT IENT VISIT, [facility], [address] [place], [place], [id number], [place] tel:[phone] [facility] Left leg pain 4 Dwyer Miriam. [address], [place], [id number] , [place]. tel: [phone] [facility], [address] [place], [place], [id number], [place] tel:[phone] [facility] No Information 3 Dwyer Miriam. [address] [place], [place], [id number] , [place]. tel: [phone] [facility], [address] [place], [place], [id number], [place] tel:[phone] [facility] No Information 2 Provider Juan Francisco Orantes [facility], [address] [place], [place], [id number], [place] tel:[phone] [facility] No Information 1 Provider Juan Francisco Orantes [facility], [address] [place], [place], [id number], [place] tel:[phone] [facility] No Information 0 Provider Juan Francisco Orantes Family History Family Member Type Diagnosis Age At Onset Problem (finding) Family history of hyper tension Immunizations Vaccine Date Status Comments Influenza virus vaccine, spl it virus, when administered to individuals 3 years of age and older, for intramuscular use (Afluria) administered Note: Influenza - Ad ult Administration ; Source: New Immunization Record Pneumococcal polysaccharide vaccine, 23-valent, adult or immunosuppressed patient dosage, for use in individuals 2 years or older, for subcutaneous or intramuscular use administered Note: pneumovax 23 ; Source: New Immunization Record tetanus and diphtheria toxoi ds, adsorbed, for adult use administered Source: Other Pr ovider Influenza virus vaccine, spl it virus, when administered to individuals 3 years of age and older, for intramuscular use (Afluria) administered Note: pt. tolerated well. Influenza - Adult Administration ; Source: New Immunization Record Influenza virus vaccine, spl it virus, when administered to individuals 3 years of age and older, for intramuscular use (Afluria) administered Note: pt. tolerated well. Influenza - Adult Administration ; Source: New Immunization Record Influenza virus vaccine, spl it virus, when administered to individuals 3 years of age and older, for intramuscular use (Afluria) administered Note: pt. tolerated well. Influenza - Adult Administration ; Source: New Immunization Record Payers Payer name Insurance type Covered alliance party ID Authorfelipaa tiroger(s) Medicare MB [id number] Social History Type Description Quantity Date Captured Comments Alcohol Use Details Unknown Caffeine Use Details Unknown Tobacco Use Status No Information Smoking Status No Information Sex Male Chief Complaint And Reason For Visit No Information Reason For Referral Reason For Referral No Information History Of Present Illness Encounter Date Complaint History Of Prese nt Illness No Information Functional Status Date Functional Assessmen t No Information Instructions Date Instruction Additional Infor mation No Information Assessments Type Assessment Date No Information Patient Care Teams Name Effective Dates (start - stop) Status Members No Information
[2024-09-10] VITALS (10 sets, daily range): BP systolic 147–184; BP diastolic 71–117; PULSE 50–77; RESP 11–22; TEMP 36.7–37; O2SAT 95–98; BMI 25.9; BMI 24.6
--- NOTE | 2024-09-10 12:10 | ECG_ITS ---
APPROVED REPORT Exam: Resting ECG HR:58 bpm ECG Measurements Heart Rate 58 AXES CA 162 P 45 QRSd 133 QRS -72 QT 502 T 61 QTc 499 Conclusion SINUS BRADYCARDIA LEFT AXIS DEVIATION [QRS AXIS < -30] RIGHT BUNDLE BRANCH BLOCK [120+ ms QRS DURATION, UPRIGHT V1, 40+ ms S IN I/aVL/V4/V5/V6] POSSIBLE ANTERIOR MYOCARDIAL INFARCTION , PROBABLY OLD [30 ms Q WAVE IN V3/V4, OR R < 0.2 mV IN V4] ABNORMAL ECG UNCONFIRMED REPORT Electronically signed by : Chan Cadet, 09/10/2024 15:27:10
--- OUTSIDE RECORDS SUMMARY | 2024-09-10 12:11 | XMS_ITS | Referral Summary ---
Author Organization [employer] ([place], [place], [place], [place]) Address [address] [place] [address] Care Team Providers Care Student Services Coordinator Name Role Phone Yao Kruse MD Primary Care Provider [phone] Allergies No known active allergies Medications amiodarone [...] Do you speak a language other than Georgian at [facility]? No 07/24/2023 Do you want help [...] Advance Directives For more information, please contact: [phone] * Full Code (Latest Code Status on File) Date Activated Date Inactivated Comments 07/24/2023 4:20 AM 07/27/2023 4:24 PM -Attempt Res uscitation if person has no pulse and is not breathing. -If no pulse or not breathing attempt CPR/CODE. -Call Rapid Response if patient is in distress. Care Teams Student Services Coordinator Relationship Specialty Start Date End Date Yao Kruse MD [address] [place] [address] [place] [address] PCP - General General Internal Medicine 07/24/23
--- OUTSIDE RECORDS SUMMARY | 2024-09-10 12:11 | XMS_ITS | Clinical Summary ---
Author Organization [employer] ([place], [place], [place], [place]) Address [address] [place] [address] Care Team Providers Care Catalogue Compiler Name Role Phone Yao Kruse MD Primary Care Provider Allergies No known active allergies Medications amiodarone [...] Do you speak a language other than Latvian at [facility]? No 07/24/2023 Do you want help with [...] Advance Directives For more information, please contact: [phone] * Full Code (Latest Code Status on File) Date Activated Date Inactivated Comments 07/24/2023 4:20 AM 07/27/2023 4:24 PM -Attempt Res uscitation if person has no pulse and is not breathing. -If no pulse or not breathing attempt CPR/CODE. -Call Rapid Response if patient is in distress. Care Teams Catalogue Compiler Relationship Specialty Start Date End Date aYo Kruse MD [address] [place] [address] PCP - General General Internal Medicine 07/24/23
--- NOTE | 2024-09-10 12:23 | ED_ITS ---
<Statement entered by Perry Cadet MD - 09/17/24 23:27> I was consulted by the PERNELL, and we discussed the complexity of the problems being addressed. I approved the treatment and management plan for this patient's care in the emergency department, thus performing a substantive portion of the medical decision making. Perry Cadet MD, AYLA, FACEP Discharge Plan Disposition Patient Disposition: Admitted Condition: Fair Clinical Impressions Clinical Impression: TIA (transient ischemic attack) Discharge ED Provider: Perry Cadet General Adult HPI General Chief complaint: Weakness Stated complaint: stroke like symptoms Time Seen by Provider: 09/10/24 12:23 History of Present Illness HPI narrative: Patient presents for evaluation of strokelike symptoms. Patient presents after period of slurred and garbled speech. Patient states that he was going to the bathroom however he was unable to make it end up defecating on himself. Patient's daughter states that she noticed shortly thereafter that patient was having some slurred speech that progressed to incomprehensible sounds. He did not have any other focal deficits and the symptoms were beginning to resolve at the time of EMS arrival. Patient does have a known history of previous stroke and previous TIA however he has been evaluated 2 previous times in the last 3 days for TIA symptoms. He also had elevated blood pressure for him. Patient has a longstanding history of atrial fibrillation that is rate controlled but also persistently and chronically low blood pressure for which she was on midodrine. Midodrine was discontinued and he followed up with cardiology yesterday who continued that. Patient today reports that his blood pressure continues to be high but he is suffering no sequela. At the time of my exam patient has returned back to baseline and is able to provide an independent recollection of the events that was cooperated independently by his daughter and grandson after their arrival. He currently denies chest pain shortness of breath fever chills hemoptysis hematochezia melena nausea vomiting diarrhea. Related Data Home Medications ?Medication ?Instructions ?Recorded ?Confirmed allopurinol 100 mg tablet 100 mg PO BID 06/26/2309/10 atorvastatin 80 mg tablet 80 mg PO HS 06/26/23 5 rivaroxaban 20 mg tablet (Xarelto) 20 mg PO QPMWITHMEA L 07/27/24 09/10/24 cholecalciferol (vitamin D3) 50 50 mcg PO DAILY 09/10/24 mcg (2,000 unit) tablet pantoprazole 40 mg tablet,delayed 40 mg PO ONCE 09/10/24 release potassium chloride 20 mEq 20 meq PO BID 09/09/2409/10 tablet,extended release levothyroxine 112 mcg tablet 112 mcg PO DAILY 09/10/24 09/10/24 Previous Rx's ?Medication ?Instructions ?Recorded clopidogrel 75 mg tablet (Plavix) 75 mg PO DAILY #30 t abs 04/26/24 amiodarone 100 mg tablet 100 mg PO DAILY #30 tabs Allergies Allergy/AdvReac Type Severity Reaction Status Date / Time empagliflozin (From AdvReac Severe Orthostatic Verified 09/09/24 10:19 Jardiance) hypotension, David's disease [facility] Disclaimer: The information contained in this section may have been updated after the patient was seen, as this information can be updated by other users. Medical History Poor sleep ALICIA (obstructive sleep apnea) Confusion Abnormal stress test Syncope Hypokalemia Hypotension Excessive weight loss Bradycardia Pericardial effusion (HFpEF) heart failure with preserved ejection fraction Coronary artery disease Lymphedema of both lower extremities CHF (congestive heart failure) Hypertension Atrial fibrillation Abnormal electrocardiogram [ECG] [EKG] Kidney damage Surgical History History of cardiac cath S/P CABG x 3 Family History Other No significant family history Social History (Updated 09/10/24 @ 15:26 by Kyra Zraagoza RN) Smoking Status: Smoker, status unknown alcohol intake: never substance use type: denies use current occupational status: retired Travel in the last 8 weeks?: Inside the [place] Have you lived/traveled outside US in past 30 days?: No Contact w/someone who lives/traveled outside US past 30 days?: No Exposure to someone with infectious disease in past 14 days?: No Do you have a fever (greater than 100.4 F or 38 C)?: No Have you tested positive for COVID-19?: No Exposed to someone with COVID-19 in past 14 days?: No Do you have a sore throat?: No Do you have a cough?: No Do you have any weakness?: No Are you experiencing any nausea/vomitting?: No Do you have any diarrhea?: No Are you experiencing any unusual bleeding?: No Do you have any muscle aches/pain?: No Do you have any abdominal pain?: No Are you experiencing loss of taste or smell?: No Other Medical History Have you received the Flu Vaccine for this season: No Have you received the Pneumonia Vaccine: Yes ROS Obtained: Yes Systems reviewed as appropriate & no additional complaints except as documented Physical Exam General General appearance: alert and in no apparent distress Respiratory Respiratory exam: Present normal lung sounds bilaterally Cardiovascular Cardiovascular exam: Present regular rate Neurological Exam Neurological exam: Present alert, oriented X3 and CN II-XII intact Medical Decision Making Medical Records Medical records reviewed: Yes I reviewed the patient's medical records. Screening: Per USPSTF and CDC recommendations, given the prevalence of disease in our region, it is our hospital?s policy to screen for HIV and viral Hepatitis for all patients aged 18 and over and those with ongoing risk factors. Charan Inquiry Pt receiving controlled substance: No Vital Signs: 09/10/24 12:20 09/10/24 12:31 09/10/24 13:01 Temperature 98.6 F Temperature Source Oral Pulse Rate Pulse Rate [Left] 58 L Respiratory Rate 16 15 11 L Blood Pressure 171/82 H 147/83 H Blood Pressure [Right Arm] 170/79 H Blood Pressure Mean [Right Arm] 109 Blood Pressure Source Blood Pressure Source [Right Arm] Automatic Cuff Blood Pressure Position 02 Sat by Pulse Oximetry 97 Oxygen Delivery Method Room Air 09/10/24 13:31 09/10/24 14:00 09/10/24 14:30 Temperature Temperature Source Pulse Rate 57 L 58 L 62 Pulse Rate [Left] Respiratory Rate 13 16 15 Blood Pressure 175/117 H 184/96 H 169/77 H Blood Pressure [Right Arm] Blood Pressure Mean [Right Arm] Blood Pressure Source Blood Pressure Source [Right Arm] Blood Pressure Position 02 Sat by Pulse Oximetry 97 98 97 Oxygen Delivery Method Room Air 09/10/24 15:09 Temperature 98.4 F Temperature Source Oral Pulse Rate 77 Pulse Rate [Left] Respiratory Rate 14 Blood Pressure 169/77 H Blood Pressure [Right Arm] Blood Pressure Mean [Right Arm] Blood Pressure Source Automatic Cuff Blood Pressure Source [Right Arm] Blood Pressure Position Sitting 02 Sat by Pulse Oximetry Oxygen Delivery Method Room Air Lab Data Lab results reviewed: Yes I reviewed the patient's lab results. Lab Results 09/10/24 12:14: WBC 5.6, RBC 4.78, Hgb 12.8 L, Hct 40.7 L, MCV 85.1, MCH 26.8 L, MCHC 31.4 L, RDW 18.9 H, Plt Count 189, MPV 11.8 H, Neut % (Auto) 61.8, Lymph % (Auto) 24.1, Stephens % (Auto) 7.2, Eos % (Auto) 5.6, Baso % (Auto) 1.1, Neut # (Auto) 3.4, Lymph # (Auto) 1.3, Stephens # (Auto) 0.4, Eos # (Auto) 0.3, Baso # (Auto) 0.1, PT 14.3 H, INR 1.31 H, APTT 30.6, Sodium 138, Potassium 4.2, Chloride 101, Carbon Dioxide 30, Anion Gap 11.2, BUN 16, Creatinine 1.50 H, Estimated Creat Clear 52, Estimated GFR 45 L, Est GFR ( Amer) 54 L, Glucose 100, Calcium 9.1, Total Bilirubin 0.7, AST 26, ALT 14, Alkaline Phosphatase 84, Total Protein 5.8 L, Albumin 3.4 L, Globulin 2.4, Albumin/Globulin Ratio 1.4, Triglycerides 120, Cholesterol 167, LDL Cholesterol Direct 66.05 L, VLDL Cholesterol 24, HDL Cholesterol 46, Cholesterol/HDL Ratio 3.6 H 09/10/24 12:14 09/10/24 12:14 Orders (Tests/Meds): ED MEDICATIONS Generic Name Dose Route Start Last Admin Trade Name Freq PRN Reason Stop Dose Admin Acetaminophen 650 mg 09/10/24 14:34 Acetaminophen 325mg Tab PO 10/10/24 14:33 Q4HP PRN Fever or Mild Pain (1-3) Enoxaparin Sodium 40 mg 09/11/24 09:00 Enoxaparin 40mg/0.4ml Syringe SUBCUT 10/11/24 08:59 DAILY GEOVANNI Ceftriaxone Sodium 1 gm/ 50 mls @ 100 mls/hr 09/10/24 18:40 Sodium Chloride IV 09/20/24 18:39 Q24H GEOVANNI Lisinopril 10 mg 09/10/24 18:45 Lisinopril 10mg Tablet PO 10/10/24 18:44 DAILY GEOVANNI Ondansetron HCl 4 mg 09/10/24 14:34 Ondansetron 4mg/2ml Vial IV 10/10/24 14:33 Q8HP PRN Nausea Sodium Chloride 10 ml 09/10/24 12:41 Sodium Chloride 0.9% 10ml Flush Syringe IV 10/10/24 12:40 NEEDED PRN Maintain IV Site Discontinued Medications Generic Name Dose Route Start Last Admin Trade Name Freq PRN Reason Stop Dose Admin Iopamidol 80 ml 09/10/24 13:47 09/10/24 13:48 Iopamidol-370 (76%);100ml Bottle IV 09/10/24 13:48 80 ml ONCE ONE Administration Sodium Chloride 50 ml 09/10/24 13:47 09/10/24 13:48 0.9 % Sodium Chloride 50 Ml Vial IV 09/10/24 13:48 50 ml ONCE ONE Administration Sodium Chloride 10 ml 09/10/24 13:47 09/10/24 13:48 Sodium Chloride 0.9% 10ml Syr (Rad Only) IV 09/10/24 13:48 10 ml ONCE ONE Administration ORDERS Category Date Time Status CT angio head Stat Cat Scan 09/10/24 12:[address] angio neck Stat Cat Scan 09/10/24 12:[address] head/brain wo con Stat Cat Scan 09/10/24 12:41 Completed Activated Partial Thrombo Time Stat Lab 09/10/24 12:14 Completed Complete Blood Count Auto Diff AMLAB Lab 09/11/24 06:00 Ordered Complete Blood Count Auto Diff Stat Lab 09/10/24 12:14 Completed Comprehensive Metabolic Panel AMLAB Lab 09/11/24 06:00 Ordered Comprehensive Metabolic Panel Stat Lab 09/10/24 12:14 Completed Lipid Panel Stat Lab 09/10/24 12:14 Completed Prothrombin Time INR Stat Lab 09/10/24 12:14 Completed Urinalysis and Microscopic Stat Lab 09/10/24 15:05 Completed Urine Microalbumin/Creat Ratio Routine Lab 09/10/24 15:05 Results Medical Decision Narrative: In summary patient is a 78-year-old gentleman who presents to the emergency department for evaluation of strokelike symptoms. Patient is slightly hypertensive on arrival blood pressure 170/79 heart rate 58 with sinus bradycardia on the bedside monitor breathing 16 times a minute satting at 97% on room air upon arrival, afebrile at 90.6. Physical exam reveals a well-nourished well-developed 78-year-old gentleman who is currently in no acute distress. Pupils equal round reactive to light Girish Coma Score is 15 cranial nerves II through XII intact grossly to exam patient has no focal neurologic deficits NIH stroke score 0. Differential diagnosis includes TIA versus large vessel occlusion versus electrolyte abnormality etc. Initial workup will be conducted with hematologic labs ED stroke workup twelve-lead EKG. Initial interventions were considered however patient is asymptomatic currently thus deferred for now. Initial workup reviewed by me and my informal to rotation of his imaging shows no evidence of stroke intracranial lesion or large vessel occlusion, hematologic labs are nonactionable.. Given the fact that the patient has continued escalating blood pressures despite discontinuation of midodrine, systolic blood pressures here have been consistently in the 170s, along with second neurologic evaluation within 48 hours concern patient needs further workup. To that extent I had an interactive discussion with hospital medicine regarding patient BOYLE presentation management and he will be admitted for further evaluation and care. Critical Care Critical Care Time Critical Care Time: Yes Attestation: On 09/10/24, the high probability of a clinically significant, sudden or life threatening deterioration of the following system(s) required my full and direct attention, intervention and personal management. The time I documented below is in addition to time spent performing reported procedures but includes the following listed in this critical care notation. Total Time Total Critical Care Time: 30
--- NOTE | 2024-09-10 12:37 | PC.NURSE ---
Patient asked for a warm blanket.
--- NOTE | 2024-09-10 12:41 | CT_ITS ---
FINAL REPORT TECHNIQUE: Axial CT images were performed through the head. Coronal reformatted images were submitted. This study was performed with techniques to keep radiation doses as low as reasonably achievable (ALARA). Individualized dose reduction techniques using automated exposure control or adjustment of mA and/or kV according to the patient's size were employed. CLINICAL HISTORY: possible stroke COMPARISON: 09/08/2024 FINDINGS: There is moderate atrophy. Proportional ventriculomegaly is noted. There is extensive confluence of decreased attenuation in the deep white matter consistent with chronic ischemia. There is no evidence of hemorrhage. There is no mass or edema identified. There is no abnormal extra-axial fluid seen. The sinuses are well aerated. IMPRESSION: No definite acute intracranial process. Diffusion-weighted MRI could better evaluate. Reviewed, Interpreted and Dictated by Sumeet Gudino MD Transcribed by Lola Champagne Authenticated and [facility]
--- NOTE | 2024-09-10 12:41 | CT_ITS ---
FINAL REPORT TECHNIQUE: NASCET technique utilized for stenosis evaluation. CLINICAL HISTORY: possible stroke COMPARISON: None FINDINGS: Carotid vasculature is adequately opacified. RIGHT CAROTID: Dense vascular calcifications of the carotid bifurcation, [id number], without significant carotid stenosis. LEFT CAROTID: Dense vascular calcifications of the carotid bifurcation, [id number], without significant carotid stenosis. VERTEBRALS: The vertebrals are patent. No significant stenosis is present. IMPRESSION: Bilateral vascular calcifications [id number]. No significant carotid stenosis. Reviewed, Interpreted and Dictated by Sumeet Gudino MD Transcribed by Lola Champagne Authenticated and [facility]
--- NOTE | 2024-09-10 12:41 | CT_ITS ---
FINAL REPORT TECHNIQUE: thin section axial CT with and without IV contrast supplemented with multiplanar 3-D reconstruction of the head. This study was performed with techniques to keep radiation doses as low as reasonably achievable, (ALARA)individualized dose reduction techniques using automated exposure control or adjustment of mA and/or kV according to the patient's size were employed. CLINICAL HISTORY: possible stroke COMPARISON: None FINDINGS: CTA: The cranial circulation is unremarkable. There is no significant stenosis, aneurysm or occlusion. IMPRESSION: No acute process. Reviewed, Interpreted and Dictated by Sumeet Gudino MD Transcribed by Lola Champagne Authenticated and [facility]
[2024-09-10 12:59] LABS: Hematocrit 40.7 % (42.0-52.0); Hemoglobin 12.8 g/dL (14.1-18.0); Immature Granulocytes % 0.2 %; Mean Corpuscular HGB Conc 31.4 g/dL (31.8-35.4); Mean Corpuscular Hemoglobin 26.8 pg (27.0-31.2); Mean Corpuscular Volume 85.1 fl (80-94); Nucleated Red Blood Cells % 0 %; Platelet Count 189 K/mm3 (142-424); Red Blood Count 4.78 M/mm3 (4.60-6.20); Red Cell Distribution Width-SD 58.5 fL; White Blood Count 5.6 K/mm3 (4.8-10.8)
[2024-09-10 13:07] LABS: Activated Partial Thrombo Time 30.6 seconds (22.8-30.6); INR 1.31 (0.9-1.1); Prothrombin Time 14.3 seconds (10.1-12.5)
[2024-09-10 13:09] LABS: Alanine Aminotransferase 14 U/L (12-78); Albumin Level 3.4 g/dl (3.5-5.0); Albumin/Globulin Ratio 1.4 (1.1-1.8); Alkaline Phosphatase 84 U/L (38-126); Anion Gap 11.2 mEq/L (5-15); Aspartate Amino Transferase 26 U/L (17-59); Bilirubin,Total 0.7 mg/dl (0.2-1.3); Blood Urea Nitrogen 16 mg/dl (9-20); Calcium 9.1 mg/dl (8.4-10.2); Carbon Dioxide 30 mmol/L (22.0-30.0); Chloride 101 mmol/L (98-107); Cholesterol 167 mg/dl (140-200); Creatinine Clearance Estimated 52 mL/min (50-200); Creatinine,Serum 1.50 mg/dl (0.66-1.25); Estimated Glomerular Filt Rate 45 ml/min (>60); GFR (African American) 54 ML/MIN (>60); Globulin 2.4 g/dL (1.3-3.2); Glucose 100 mg/dl (74-100); HDL Cholesterol 46 mg/dl (40-60); Potassium 4.2 mmoL/L (3.5-5.1); Sodium 138 mmol/L (136-145); Total Protein,Serum 5.8 g/dl (6.3-8.2); Triglycerides 120 mg/dl (30-150)
[2024-09-10] MEDS: SODIUM CHLORIDE 0.9% 10ML SYR (RAD ONLY) 10 ML IV (13:48)
[2024-09-10] MEDS: 0.9 % SODIUM CHLORIDE 50 ML VIAL IV (13:48)
[2024-09-10] MEDS: IOPAMIDOL-370 (76%);100ML BOTTLE 80 ML IV (13:48)
--- NOTE | 2024-09-10 14:31 | MR_ITS ---
FINAL REPORT CLINICAL HISTORY: Episode of incomprehensible speech r/o stroke COMPARISON: None FINDINGS: Multi planar MR imaging was obtained through the brain without contrast. There is moderate degradation of the overall image quality secondary to motion artifact. The midline structures appear intact. There is no evidence of Chiari malformation. On T2 and flair axial images the brain parenchyma demonstrates confluent abnormal signal in the periventricular white matter, that likely is secondary to chronic ischemic change. Moderate changes of atrophy are present. On diffusion-weighted images there is no evidence of restricted diffusion. The visualized paranasal sinuses demonstrate normal signal voids. The seventh and eighth nerve root complexes are intact. IMPRESSION: Exam limited secondary to motion artifact. Moderate global atrophy and periventricular white matter signal changes most likely secondary to chronic ischemia. No definite evidence of restricted diffusion is identified. Reviewed, Interpreted and Dictated by Sumeet Gudino MD Transcribed by Briana Carter Authenticated and [facility]
--- NOTE | 2024-09-10 14:53 | PC.NURSE ---
Pt to MRI
[2024-09-10 15:12] LABS: Microscopic, Urine URINE MICROSCOPIC (MICROSCOPIC)
--- NOTE | 2024-09-10 15:15 | PC.NURSE ---
Called and spoke with Kyra SHELLEY to update. suspender cutter told primary nurse that the patient may have soiled pants and need cleaned up. Pt did not have any noted soiled or wet clothing upon RN assesment. Kyra SHELLEY stated they would check the patient once the patient arrived from MRI.
[2024-09-10 15:18] LABS: Bilirubin,Urine Negative (Negative); Color,Urine YELLOW (Yellow); Glucose,Urine (UA) Negative (Negative); Ketones,Urine Negative (Negative); Leukocyte Esterase,Urine Negative (Negative); PH,Urine 7.0 (5.0-8.5); Protein,Urine 3+ (Negative); Specific Gravity, Urine 1.020 (1.005-1.030); Urobilinogen,Urine 0.2 EU/dl (0.2)
--- NOTE | 2024-09-10 15:35 | PC.NURSE ---
Pt arrived to the floor by wheelchair accompanied by MRI staff. Upon arrival they stated that patient said he had soiled himself and needed changed. I went in his room with an SRNA and another nurse to change patient but upon inspection he was not soiled. He was changed into a gown and oriented to room.
[2024-09-10 15:58] LABS: POC Glucose,Bedside 91 (70-110)
[2024-09-10 16:27] LABS: Amorphous Sediment,Urine 1+ /lpf; Bacteria,Urine 1+ /lpf; Mucus,Urine 2+ /lpf; RBC,Urine 20-50 #/hpf (0-3)
[2024-09-10] MEDS: CEFTRIAXONE 1 GM 1 GM in 0.9 % SODIUM CHLORIDE 50 ML IV (18:56)
[2024-09-10] MEDS: LISINOPRIL 10MG TABLET 10 MG PO (18:56)
--- NOTE | 2024-09-10 19:08 | EXP.HP ---
History of Present Illness *Admission Date: 09/10/24 *Reason for visit:: Weakness, garbled speech *History of present illness: Anup Box is a 78-year-old male with a medical history significant for CAD/CABG, CVA, A-fib on Xarelto, CKD stage III, hypothyroidism, proteinuria, hematuria who presents with weakness and a 45-minute episode of garbled speech. Patient states it began this morning during which he states he was confused and had garbled speech. No other focal deficits. He then proceeded to come to the ED. Last night, patient states he had an episode of explosive diarrhea/self defecation. He states he has been having these episodes of loose stools for many months. No abdominal pain. Patient has also been having on and off issues with his blood pressures, most recently discontinued from midodrine by cardiology due to elevated pressures. Blood pressure on arrival 180s over 100s. 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 Patient has an upcoming appointment, has not followed up yet. Denies chest pain, shortness of breath, abdominal pain, urinary troubles. Case discussed with ED provider and decision was made to admit patient for TIA workup. [facility] Disclaimer: The information contained in this section may have been updated after the patient was seen, as this information can be updated by other users. Medical History Poor sleep ALICIA (obstructive sleep apnea) Confusion Abnormal stress test Syncope Hypokalemia Hypotension Excessive weight loss Bradycardia Pericardial effusion (HFpEF) heart failure with preserved ejection fraction Coronary artery disease Lymphedema of both lower extremities CHF (congestive heart failure) Hypertension Atrial fibrillation Abnormal electrocardiogram [ECG] [EKG] Kidney damage Surgical History History of cardiac cath S/P CABG x 3 Family History Other No significant family history Social History (Updated 09/10/24 @ 15:26 by Kyra Zaragoza RN) Smoking Status: Smoker, status unknown alcohol intake: never substance use type: denies use current occupational status: retired Travel in the last 8 weeks?: Inside the [place] Have you lived/traveled outside US in past 30 days?: No Contact w/someone who lives/traveled outside US past 30 days?: No Exposure to someone with infectious disease in past 14 days?: No Do you have a fever (greater than 100.4 F or 38 C)?: No Have you tested positive for COVID-19?: No Exposed to someone with COVID-19 in past 14 days?: No Do you have a sore throat?: No Do you have a cough?: No Do you have any weakness?: No Are you experiencing any nausea/vomitting?: No Do you have any diarrhea?: No Are you experiencing any unusual bleeding?: No Do you have any muscle aches/pain?: No Do you have any abdominal pain?: No Are you experiencing loss of taste or smell?: No Other Medical History Have you received the Flu Vaccine for this season: Yes Have you received the Pneumonia Vaccine: Yes Meds Home Medications and Allergies Home Medications ?Medication ?Instructions ?Recorded ?Confirmed ?Type allopurinol 100 mg tablet 100 mg PO BID 06/26/23 09/10/24 History atorvastatin 80 mg tablet 80 mg PO HS 06/26/23 09/10/24 History clopidogrel 75 mg tablet (Plavix) 75 mg PO DAILY #30 tabs 04/26/24 09/10/24 Rx rivaroxaban 20 mg tablet (Xarelto) 20 mg PO QPMWITHMEAL 07/27/24 09/10/24 History amiodarone 100 mg tablet 100 mg PO DAILY #30 tabs 08/16/24 09/10/24 Rx cholecalciferol (vitamin D3) 50 50 mcg PO DAILY 09/09/24 09/10/24 History mcg (2,000 unit) tablet pantoprazole 40 mg tablet,delayed 40 mg PO ONCE 09/09/24 09/10/24 History release potassium chloride 20 mEq 20 meq PO BID 09/09/24 09/10/24 History tablet,extended release levothyroxine 112 mcg tablet 112 mcg PO DAILY 09/10/24 09/10/24 History New Prescriptions to Start Prescriptions: Allergies Allergy/AdvReac Type Severity Reaction Status Date / Time empagliflozin (From AdvReac Severe Orthostatic Verified 09/09/24 10:19 Jardiance) hypotension, David's disease Exam Data for Last 24 hours Vital signs and Labs for Last 24 Hours: Temp Pulse Resp BP Pulse Ox O2 Del Method 98.4 F 60 22 174/102 H 97 Room Air 09/10/24 15:30 09/10/24 16:00 09/10/24 15:30 09/10/24 15:30 09/10/24 15:30 09/10/24 18:57 Laboratory Results - last 24 hr 09/10/24 12:14: WBC 5.6, RBC 4.78, Hgb 12.8 L, Hct 40.7 L, MCV 85.1, MCH 26.8 L, MCHC 31.4 L, RDW 18.9 H, Plt Count 189, MPV 11.8 H, Neut % (Auto) 61.8, Lymph % (Auto) 24.1, [place] % (Auto) 7.2, Eos % (Auto) 5.6, Baso % (Auto) 1.1, Neut # (Auto) 3.4, Lymph # (Auto) 1.3, [place] # (Auto) 0.4, Eos # (Auto) 0.3, Baso # (Auto) 0.1, PT 14.3 H, INR 1.31 H, APTT 30.6, Sodium 138, Potassium 4.2, Chloride 101, Carbon Dioxide 30, Anion Gap 11.2, BUN 16, Creatinine 1.50 H, Estimated Creat Clear 52, Estimated GFR 45 L, Est GFR ( Amer) 54 L, Glucose 100, Calcium 9.1, Total Bilirubin 0.7, AST 26, ALT 14, Alkaline Phosphatase 84, Total Protein 5.8 L, Albumin 3.4 L, Globulin 2.4, Albumin/Globulin Ratio 1.4, Triglycerides 120, Cholesterol 167, LDL Cholesterol Direct 66.05 L, VLDL Cholesterol 24, HDL Cholesterol 46, Cholesterol/HDL Ratio 3.6 H 09/10/24 15:05: Urine Color Yellow, Urine Appearance Clear, Urine pH 7.0, Ur Specific [place] 1.020, Urine Protein 3+ A, Urine Glucose (UA) Negative, Urine Ketones Negative, Urine Blood 1+ A, Urine Nitrate Negative, Urine Bilirubin Negative, Urine Urobilinogen 0.2, Ur Leukocyte Esterase Negative, Urine RBC 20-50, Urine WBC 3-5, Ur Squamous Epith Cells 5-10, Amorphous Sediment 1+, Urine Bacteria 1+, Urine Mucus 2+, Urine Creatinine 86 09/10/24 15:49: POC Glucose 91 I & O for Last 24 hours: Intake & Output 09/07/24 09/08/24 09/09/24 09/10/24 23:59 23:59 23:59 23:59 Intake Total 200 / 200 Output Total 200 / 200 Balance 0 / 0 Weight 89.358 kg Constitutional Constitutional: no acute distress *Routine HEENT Exam Head: Present normocephalic Eye: Present EOMI and PERRL ENT: Present mucous membranes moist *Routine Neck Exam Neck: Present supple; Absent lymphadenopathy *Routine Respiratory Exam Respiratory: Present CTA bilaterally *Routine Cardiovascular Exam Cardiovascular: Present RRR *Routine Abdominal Exam Abdominal: Present soft and normoactive bowel sounds; Absent tenderness *Routine Rectal Exam Rectal:: deferred *Routine Genitalia Exam Genitalia:: deferred *Routine Extremities Exam Extremities: Absent cyanosis, clubbing or edema Comments: Trace edema. *Routine Skin Exam Skin: Present warm; Absent rash *Routine Neurological Exam Neurological: Present alert and oriented X3 Assessment and Plan *Assessment and plan (1) TIA (transient ischemic attack): Status: Acute Category: Medical Code(s): G45.9 - Transient cerebral ischemic attack, unspecified (2) Hematuria: Status: Acute Category: Medical Code(s): R31.9 - Hematuria, unspecified (3) Cerebrovascular small vessel disease: Status: Acute Category: Medical Code(s): I67.9 - Cerebrovascular disease, unspecified Plan Anup Box is a 78-year-old male with a medical history significant for CAD/CABG, CVA, A-fib on Xarelto, CKD stage III, hypothyroidism, proteinuria, hematuria who presents with weakness and a 45-minute episode of garbled speech. Patient states it began this morning during which he states he was confused and had garbled speech. No other focal deficits. He then proceeded to come to the ED. Last night, patient states he had an episode of explosive diarrhea/self defecation. He states he has been having these episodes of loose stools for many months. No abdominal pain. Patient has also been having on and off issues with his blood pressures, most recently discontinued from midodrine by cardiology due to elevated pressures. Blood pressure on arrival 180s over 100s. 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 Patient has an upcoming appointment, has not followed up yet. Denies chest pain, shortness of breath, abdominal pain, urinary troubles. Case discussed with ED provider and decision was made to admit patient for TIA workup. #TIA #Garbled speech #Hypertension, new onset ? Patient had a 45-minute episode of garbled speech the morning of admission. Self resolved. In the setting of elevated pressures of 180s over 100s. ? CT head, MRI brain did not show acute findings though limited by motion artifact. Did show global moderate atrophy and chronic ischemic changes. ? ABCD2 score 4. Will need DAPT for at least 21 days. ? Started aspirin 81 mg, continue home clopidogrel 75 mg, atorvastatin 80 mg. ? Started lisinopril 10 mg for hypertension in setting of proteinuria. Low-dose chosen due to previous history of hypotension. Follow-up on response. ? Hypertensive seems to be new onset, previously had hypotensive episodes. Recently discontinued midodrine. May be related to nephritic/nephrotic syndrome as below. ? Follow-up ECHO with bubble study. ? A1c 5.5, LDL 66, TSH 1.65. Non-smoker. ? No evidence of CVA on MRI. Will discontinue permissive hypertension. ? Cardiology consulted for continuity of care, new onset hypertension. 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 Previous urine microalbumin > 1140, continues to have proteinuria 3+ and hematuria 1+ on UA on admission. Concerning for glomerulonephritis. ? Given combination of proteinuria, hematuria, and low albumin and history of lower extremity edema I have concern for nephrotic/nephritic syndrome. ? Nephritic syndrome may be contributing to elevated pressures. ? Follow-up renal ultrasound in the morning. ? Started lisinopril 10 mg per proteinuria, hypertension. Follow-up response. ? UA has mild bacteriuria, leukocytosis. Started ceftriaxone day 1 for empiric treatment. Follow-up urine culture. #History of CABG/CAD with stents ? Continue Plavix, Xarelto, atorvastatin. #A-fib ? Continue home amiodarone, Xarelto. Currently rate controlled. #Gout ? Continue home allopurinol 100 mg. #Hypothyroidism ? Continue home levothyroxine 125 mcg. TFTs normal. Full code DVT prophylaxis: Home Xarelto
[2024-09-10] MEDS: ATORVASTATIN 40MG TABLET 80 MG PO (20:58)
[2024-09-10] MEDS: PANTOPRAZOLE 40MG TABLET 40 MG PO (20:58)
[2024-09-10] MEDS: ALLOPURINOL 100MG TABLET 100 MG PO (20:59)
[2024-09-11] VITALS: BP 131/67; PULSE 55; PULSE 62; RESP 18; TEMP 36.4; O2SAT 95
[2024-09-11 04:00] VITALS: BP 142/79; PULSE 60; PULSE 63; RESP 18; TEMP 37.1; O2SAT 97; BMI 24.9
--- NOTE | 2024-09-11 04:24 | PC.NURSE ---
Pt is Alert & Oriented x4. Pt is on RA. Pt is Afib w/ BBB & Prolonged QT. Pt has not had any acute changes. Pt did express frustration about being weaker. Pt was a x2 assist to the BSC. Pt has expressed no further concerns. Pt is resting w/ call light in reach. Plan of care ongoing.
--- NOTE | 2024-09-11 06:00 | US_ITS ---
FINAL REPORT CLINICAL HISTORY: suspected nephritic/nephrotic syndrome COMPARISON: None FINDINGS: RENAL ULTRASOUND Ultrasound images of the kidneys were obtained. Difficult exam due to patient condition and confusion. Spleen not visualized. The right kidney measures 11.4 cm in length. The left kidney measures 12.6 cm in length. There is a 5.5 x 5.8 cm benign-appearing cyst in the left kidney. No hydronephrosis. IMPRESSION: Benign-appearing left renal cyst. Reviewed, Interpreted and Dictated by Sumeet Gudino MD Transcribed by Lola Champagne Authenticated and [facility]
[2024-09-11 06:49] LABS: Alanine Aminotransferase 12 U/L (12-78); Albumin Level 2.9 g/dl (3.5-5.0); Albumin/Globulin Ratio 1.3 (1.1-1.8); Alkaline Phosphatase 83 U/L (38-126); Anion Gap 11.5 mEq/L (5-15); Aspartate Amino Transferase 21 U/L (17-59); Bilirubin,Total 0.7 mg/dl (0.2-1.3); Blood Urea Nitrogen 13 mg/dl (9-20); Calcium 8.8 mg/dl (8.4-10.2); Carbon Dioxide 28 mmol/L (22.0-30.0); Chloride 104 mmol/L (98-107); Creatinine Clearance Estimated 54 mL/min (50-200); Creatinine,Serum 1.40 mg/dl (0.66-1.25); Estimated Glomerular Filt Rate 49 ml/min (>60); GFR (African American) 59 ML/MIN (>60); Globulin 2.2 g/dL (1.3-3.2); Glucose 92 mg/dl (74-100); Potassium 3.5 mmoL/L (3.5-5.1); Sodium 140 mmol/L (136-145); Total Protein,Serum 5.1 g/dl (6.3-8.2)
[2024-09-11 08:00] VITALS: BP 162/74; PULSE 60; RESP 16; TEMP 36.6; O2SAT 99
[2024-09-11 08:06] LABS: Hematocrit 38.0 % (42.0-52.0); Hemoglobin 11.9 g/dL (14.1-18.0); Immature Granulocytes % 0.3 %; Mean Corpuscular HGB Conc 31.3 g/dL (31.8-35.4); Mean Corpuscular Hemoglobin 26.4 pg (27.0-31.2); Mean Corpuscular Volume 84.4 fl (80-94); Nucleated Red Blood Cells % 0 %; Platelet Count 182 K/mm3 (142-424); Red Blood Count 4.50 M/mm3 (4.60-6.20); Red Cell Distribution Width-SD 58.5 fL; White Blood Count 6.1 K/mm3 (4.8-10.8)
--- NOTE | 2024-09-11 09:04 | HMH.OTEV ---
OT Inpatient Evaluation Rehab OT IP Evaluation Start: 09/10/24 15:23 Freq: ONCE Status: Active [facility]Rec: 09/11/24 09:04 [facility] [id number]) Rehab OT IP Assessment Subjective History Pt oriented x 3 on arrival. Pt agreeable to engage in therapy evaluation. Pt admitted on due to TIA. History and physical: Anup Box is a 78-year-old male with a medical history significant for CAD/CABG, CVA, A-fib on Xarelto , CKD stage III, hypothyroidism, proteinuria, hematuria who presents with weakness and a 45-minute episode of garbled speech. Patient states it began this morning during which he states he was confused and had garbled speech. No other focal deficits. He then proceeded to come to the ED. Last night, patient states he had an episode of explosive diarrhea/self defecation. He states he has been having these episodes of loose stools for many months. No abdominal pain. Patient has also been having on and off issues with his blood pressures, most recently discontinued from midodrine by cardiology due to elevated pressures. Blood pressure on arrival 180s over 100s. Patient was admitted to our facility at the end of July, and he was advised to follow-up with nephrology for suspected nephrotic/ nephritic syndrome given significant proteinuria and hematuria. Patient has an upcoming appointment, has not followed up yet. Denies chest pain, shortness of breath, abdominal pain, urinary troubles. Case discussed with ED provider and decision was made to admit patient for TIA workup. Subjective Pt demonstrated increased difficulty with sequencing and motor planning of tasks during functional transfers . Pt required max verbal cues, tactile cues, and hand over hand assistance provided to increase safety. Pt reports prior to being in the hospital, pt lived with his daughter. Pt reports he was able to dress and feed himself, but was required assistance with bathing . Pt dependent upon daughter for completion of IADLs. Pt used rolling walker during functional transfers. Objective Patient Orientation Person,Place,Birthday Right Upper WFL Extremity Gross ROM Left Upper Extremity WFL Gross ROM Bed Mobility bed mobility-scooting,bed mobility - supine/sit Assist Level Minimal x 2 (25% assist) Transfer Training Sit/Stand/Step Transfer Assist Level Moderate x 2 (50% assist) Chair Transfer Stand Step Pivot Technique Chair Transfer Rolling Walker Assistive Devices Rehab OT IP prob,goals,plan Problems Date of Evaluation: 09/11/24 OT IP Problems Bed Mobility,Transfers,Balance,Self care,Safety Rehab Potential Rehab Potential Good Equipment Needs Assistive Devices Rolling / Wheeled Walker Plan OT intervention Plan Bed Mobility,Transfers,Balance,Self care,Safety, Therapeutic Exercise OT Plan Frequency Daily Duration LOS Discharge Goals Bed Mobility Ability Assistance x1 Sit to Stand Chair Moderate x 1 (50% assist) Transfer Ability Chair Transfer Moderate x 1 (50% assist) Ability Chair Transfer Sit to/from Ambulatory Technique Chair Transfer Rolling Walker Assistive Devices Feeding Ability Assist with Tray Set Up Lower Body Dressing Moderate Assistance Ability Upper Body Dressing Minimal Assistance Ability Performing Toilet Moderate Assistance Hygiene Ability Overall Commode/ Moderate Assistance Toilet Transfer Ability Commode/Toilet Sit to/from Ambulatory Transfer Technique Discharge Plan OT Discharge Plan Pt will continue to be seen for OT services while at [facility]. Pt would benefit most from short term rehab at SNF following discharge from hospital. Pt requires 24/ 7 assistance at this time. Continued skilled therapy is important in order for patient to improve strength, safety, endurance, ADL independence, and functional transfers to reach PLOF. Eval Complexity Eval Charge Codes 20994 - Moderate Complexity PHYSICIAN CERTIFICATION: I certify the specified therapy services for Anup Lubin are required, authorized, and reviewed every 30 days.
[2024-09-11] MEDS: CLOPIDOGREL 75MG TAB 75 MG PO (10:05)
[2024-09-11] MEDS: LISINOPRIL 10MG TABLET 10 MG PO (10:05)
[2024-09-11] MEDS: POTASSIUM CHLORIDE 20MEQ TAB 40 MEQ PO ×2 (10:05→11:59)
[2024-09-11] MEDS: ALLOPURINOL 100MG TABLET 100 MG PO ×2 (10:05→20:30)
[2024-09-11] MEDS: ASPIRIN EC 81MG TABLET 81 MG PO (10:05)
[2024-09-11] MEDS: LEVOTHYROXINE 112MCG (0.112MG) TAB 112 MCG PO (10:06)
[2024-09-11 12:00] VITALS: BP 143/81; PULSE 59; RESP 20; TEMP 36.4; O2SAT 96
--- NOTE | 2024-09-11 12:53 | EXP.DC.SUM ---
General Admission date:: 09/10/24 HPI HPI HPI: Anup Box is a 78-year-old male with a medical history significant for CAD/CABG, CVA, A-fib on Xarelto, CKD stage III, hypothyroidism, proteinuria, hematuria who presents with weakness and a 45-minute episode of garbled speech. Patient states it began this morning during which he states he was confused and had garbled speech. No other focal deficits. He then proceeded to come to the ED. Last night, patient states he had an episode of explosive diarrhea/self defecation. He states he has been having these episodes of loose stools for many months. No abdominal pain. Patient has also been having on and off issues with his blood pressures, most recently discontinued from midodrine by cardiology due to elevated pressures. Blood pressure on arrival 180s over 100s. 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 Patient has an upcoming appointment, has not followed up yet. Denies chest pain, shortness of breath, abdominal pain, urinary troubles. Case discussed with ED provider and decision was made to admit patient for TIA workup. Exam Data for Last 24 hours Vital signs and Labs for Last 24 Hours: Temp Pulse Resp BP Pulse Ox O2 Del Method 98 F 60 16 162/74 H 99 Room Air 09/11/24 08:00 09/11/24 08:00 09/11/24 08:00 09/11/24 08:00 09/11/24 08:00 09/11/24 12:21 Laboratory Results - last 24 hr 09/10/24 12:14: WBC 5.6, RBC 4.78, Hgb 12.8 L, Hct 40.7 L, MCV 85.1, MCH 26.8 L, MCHC 31.4 L, RDW 18.9 H, Plt Count 189, MPV 11.8 H, Neut % (Auto) 61.8, Lymph % (Auto) 24.1, [place] % (Auto) 7.2, Eos % (Auto) 5.6, Baso % (Auto) 1.1, Neut # (Auto) 3.4, Lymph # (Auto) 1.3, [place] # (Auto) 0.4, Eos # (Auto) 0.3, Baso # (Auto) 0.1, PT 14.3 H, INR 1.31 H, APTT 30.6, Sodium 138, Potassium 4.2, Chloride 101, Carbon Dioxide 30, Anion Gap 11.2, BUN 16, Creatinine 1.50 H, Estimated Creat Clear 52, Estimated GFR 45 L, Est GFR ( Amer) 54 L, Glucose 100, Calcium 9.1, Total Bilirubin 0.7, AST 26, ALT 14, Alkaline Phosphatase 84, Total Protein 5.8 L, Albumin 3.4 L, Globulin 2.4, Albumin/Globulin Ratio 1.4, Triglycerides 120, Cholesterol 167, LDL Cholesterol Direct 66.05 L, VLDL Cholesterol 24, HDL Cholesterol 46, Cholesterol/HDL Ratio 3.6 H 09/10/24 15:05: Urine Color Yellow, Urine Appearance Clear, Urine pH 7.0, Ur Specific [place] 1.020, Urine Protein 3+ A, Urine Glucose (UA) Negative, Urine Ketones Negative, Urine Blood 1+ A, Urine Nitrate Negative, Urine Bilirubin Negative, Urine Urobilinogen 0.2, Ur Leukocyte Esterase Negative, Urine RBC 20-50, Urine WBC 3-5, Ur Squamous Epith Cells 5-10, Amorphous Sediment 1+, Urine Bacteria 1+, Urine Mucus 2+, Urine Creatinine 86 09/10/24 15:49: POC Glucose 91 09/11/24 05:26: WBC 6.1, RBC 4.50 L, Hgb 11.9 L, Hct 38.0 L, MCV 84.4, MCH 26.4 L, MCHC 31.3 L, RDW 19.3 H, Plt Count 182, MPV 12.3 H, Neut % (Auto) 66.8, Lymph % (Auto) 17.9, [place] % (Auto) 8.1, Eos % (Auto) 5.9, Baso % (Auto) 1.0, Neut # (Auto) 4.1, Lymph # (Auto) 1.1, [place] # (Auto) 0.5, Eos # (Auto) 0.4, Baso # (Auto) 0.1, Sodium 140, Potassium 3.5, Chloride 104, Carbon Dioxide 28, Anion Gap 11.5, BUN 13, Creatinine 1.40 H, Estimated Creat Clear 54, Estimated GFR 49 L, Est GFR ( Amer) 59, Glucose 92, Calcium 8.8, Total Bilirubin 0.7, AST 21, ALT 12, Alkaline Phosphatase 83, Total Protein 5.1 L, Albumin 2.9 L D, Globulin 2.2, Albumin/Globulin Ratio 1.3 I & O for Last 24 hours: Intake & Output 09/08/24 09/09/24 09/10/24 09/11/24 23:59 23:59 23:59 23:59 Intake Total 200 / 250 50 / 50 Output Total 200 / 200 275 / 275 Balance 0 / 50 -225 / -225 Weight 89.358 kg 91.036 kg Results Data Completed and Pending Labs on day of discharge: Labs from last 24 hours 09/11/24 09/10/24 09/10/24 05:26 15:49 15:05 WBC 6.1 RBC 4.50 L Hgb 11.9 L Hct 38.0 L MCV 84.4 MCH 26.4 L MCHC 31.3 L RDW 19.3 H Plt Count 182 MPV 12.3 H Neut % (Auto) 66.8 Lymph % (Auto) 17.9 [place] % (Auto) 8.1 Eos % (Auto) 5.9 Baso % (Auto) 1.0 Neut # (Auto) 4.1 Lymph # (Auto) 1.1 [place] # (Auto) 0.5 Eos # (Auto) 0.4 Baso # (Auto) 0.1 PT INR APTT Sodium 140 Potassium 3.5 Chloride 104 Carbon Dioxide 28 Anion Gap 11.5 BUN 13 Creatinine 1.40 H Estimated Creat Clear 54 Estimated GFR 49 L Est GFR ( Amer) 59 Glucose 92 POC Glucose 91 Calcium 8.8 Total Bilirubin 0.7 AST 21 ALT 12 Alkaline Phosphatase 83 Total Protein 5.1 L Albumin 2.9 L D Globulin 2.2 Albumin/Globulin Ratio 1.3 Triglycerides Cholesterol LDL Cholesterol Direct VLDL Cholesterol HDL Cholesterol Cholesterol/HDL Ratio Urine Color Yellow Urine Appearance Clear Urine pH 7.0 Ur Specific [place] 1.020 Urine Protein 3+ A Urine Glucose (UA) Negative Urine Ketones Negative Urine Blood 1+ A Urine Nitrate Negative Urine Bilirubin Negative Urine Urobilinogen 0.2 Ur Leukocyte Esterase Negative Urine RBC 20-50 Urine WBC 3-5 Ur Squamous Epith Cells 5-10 Amorphous Sediment 1+ Urine Bacteria 1+ Urine Mucus 2+ Urine Creatinine 86 09/10/24 12:14 WBC 5.6 RBC 4.78 Hgb 12.8 L Hct 40.7 L MCV 85.1 MCH 26.8 L MCHC 31.4 L RDW 18.9 H Plt Count 189 MPV 11.8 H Neut % (Auto) 61.8 Lymph % (Auto) 24.1 [place] % (Auto) 7.2 Eos % (Auto) 5.6 Baso % (Auto) 1.1 Neut # (Auto) 3.4 Lymph # (Auto) 1.3 [place] # (Auto) 0.4 Eos # (Auto) 0.3 Baso # (Auto) 0.1 PT 14.3 H INR 1.31 H APTT 30.6 Sodium 138 Potassium 4.2 Chloride 101 Carbon Dioxide 30 Anion Gap 11.2 BUN 16 Creatinine 1.50 H Estimated Creat Clear 52 Estimated GFR 45 L Est GFR ( Amer) 54 L Glucose 100 POC Glucose Calcium 9.1 Total Bilirubin 0.7 AST 26 ALT 14 Alkaline Phosphatase 84 Total Protein 5.8 L Albumin 3.4 L Globulin 2.4 Albumin/Globulin Ratio 1.4 Triglycerides 120 Cholesterol 167 LDL Cholesterol Direct 66.05 L VLDL Cholesterol 24 HDL Cholesterol 46 Cholesterol/HDL Ratio 3.6 H Urine Color Urine Appearance Urine pH Ur Specific [place] Urine Protein Urine Glucose (UA) Urine Ketones Urine Blood Urine Nitrate Urine Bilirubin Urine Urobilinogen Ur Leukocyte Esterase Urine RBC Urine WBC Ur Squamous Epith Cells Amorphous Sediment Urine Bacteria Urine Mucus Urine Creatinine DS: Diagnosis Discharge Diagnosis (1) TIA (transient ischemic attack): Status: Acute Code(s): G45.9 - Transient cerebral ischemic attack, unspecified (2) Hematuria: Status: Acute Code(s): R31.9 - Hematuria, unspecified (3) Cerebrovascular small vessel disease: Status: Acute Code(s): I67.9 - Cerebrovascular disease, unspecified Meds Home Medications and Allergies Home Medications ?Medication ?Instructions ?Recorded ?Confirmed ?Type allopurinol 100 mg tablet 100 mg PO BID 06/26/23 09/10/24 History atorvastatin 80 mg tablet 80 mg PO HS 06/26/23 09/10/24 History clopidogrel 75 mg tablet (Plavix) 75 mg PO DAILY #30 tabs 04/26/24 09/10/24 Rx rivaroxaban 20 mg tablet (Xarelto) 20 mg PO QPMWITHMEAL 07/27/24 09/10/24 History amiodarone 100 mg tablet 100 mg PO DAILY #30 tabs 08/16/24 09/10/24 Rx cholecalciferol (vitamin D3) 50 50 mcg PO DAILY 09/09/24 09/10/24 History mcg (2,000 unit) tablet pantoprazole 40 mg tablet,delayed 40 mg PO HS 09/09/24 09/11/24 History release potassium chloride 20 mEq 20 meq PO BID 09/09/24 09/10/24 History tablet,extended release levothyroxine 112 mcg tablet 112 mcg PO DAILY 09/10/24 09/11/24 History aspirin 81 mg tablet,delayed 81 mg PO DAILY 20 days #20 tabs 09/11/24 Rx release levofloxacin 750 mg tablet 750 mg PO DAILY 5 days #5 tabs 09/11/24 Rx lisinopril 10 mg tablet 20 mg (2 x 10 mg) PO DAILY 30 days 09/11/24 Rx #60 tabs New Prescriptions to Start Prescriptions: Walter Echevarria levofloxacin Mita,Walter lisinopril Walter Fan Allergies Allergy/AdvReac Type Severity Reaction Status Date / Time empagliflozin (From AdvReac Severe Orthostatic Verified 09/09/24 10:19 Jardiance) hypotension, David's disease Discharge Plan Disposition Patient Disposition: Home, Self-Care Condition: Fair Follow up Plan Follow up with: Yao Kruse [Primary Care Provider, Medical] - 1 week Prescriptions/Medication Reconciliation: New aspirin 81 mg Tablet,Delayed Release (Dr/Ec) 81 mg PO DAILY 20 Days Qty: 20 0RF lisinopril 10 mg Tablet 20 mg PO DAILY 30 Days Qty: 60 0RF levofloxacin 750 mg tablet 750 mg PO DAILY 5 Days Qty: 5 0RF Continued atorvastatin 80 mg tablet 80 mg PO HS Patient Comments: TAKE 1 TABLET BY MOUTH EVERY NIGHT allopurinol 100 mg tablet 100 mg PO BID Patient Comments: TAKE 1 TABLET BY MOUTH EVERY MORNING AND 1 TABLET EVERY NIGHT AT BEDTIME pantoprazole 40 mg tablet,delayed release (DR/EC) 40 mg PO HS cholecalciferol (vitamin D3) 50 mcg (2,000 unit) tablet 50 mcg PO DAILY potassium chloride 20 mEq tablet extended release 20 meq PO BID amiodarone 100 mg tablet 100 mg PO DAILY Qty: 30 2RF clopidogrel [Plavix] 75 mg Tablet 75 mg PO DAILY Qty: 30 6RF levothyroxine 112 mcg tablet 112 mcg PO DAILY Xarelto 20 mg tablet 20 mg PO QPMWITHMEAL Patient Comments: TAKE 1 TABLET BY MOUTH DAILY Problem Reconciliation Problems Reviewed?: Yes Patient Discharge Instructions Patient Instructions: DI for Transient Ischemic Attack, Stop Light Heart Failure Print Language: [place] Citizen Providers Primary Care Provider: Yao Kruse Admit Provider: Walter Fan Attending Provider: Walter Fan
--- NOTE | 2024-09-11 13:05 | PC.NURSE ---
Pharmacy called about patient's d/c meds. Iv removed.
--- NOTE | 2024-09-11 13:22 | EXP.CARD.CON ---
History of Present Illness History of Present Illness Consult date: 09/11/24 Requesting physician: Walter Fan Chief complaint: weakness History of present illness: 78 yo WM with extensive past medical hx including CAD, PAF, newly diagnosed vascular dementia, CKD-III, HFpEF, Hypothyroidism. Also historically has severe hypotension and was requiring Fludrocortisone and Midodrine max doses daily to keep systolic BP over 90. Recently titrating off of these meds and having severe Htn >180s. He has presented to ER 3-4x in the past week with vague complaints of feeling not well. Workup has largely been unremarkable. He presented again yesterday after having a large amount of fecal incontinence and mulbing nonsensical speech for 10-15 minutes as witnessed by his daughter who is here providing additional history. His MRI did not reveal CVA. He is back to his baseline at this time. He has had significant decline in cognitive abilities over the past 6 months. We are consulted to help manage BP. [facility] Disclaimer: The information contained in this section may have been updated after the patient was seen, as this information can be updated by other users. Medical History Poor sleep ALICIA (obstructive sleep apnea) Confusion Abnormal stress test Syncope Hypokalemia Hypotension Excessive weight loss Bradycardia Pericardial effusion (HFpEF) heart failure with preserved ejection fraction Coronary artery disease Lymphedema of both lower extremities CHF (congestive heart failure) Hypertension Atrial fibrillation Abnormal electrocardiogram [ECG] [EKG] Kidney damage Surgical History History of cardiac cath S/P CABG x 3 Family History Other No significant family history Social History Smoking Status: Smoker, status unknown alcohol intake: never substance use type: denies use current occupational status: retired Travel in the last 8 weeks?: Inside the [place] Have you lived/traveled outside US in past 30 days?: No Contact w/someone who lives/traveled outside US past 30 days?: No Exposure to someone with infectious disease in past 14 days?: No Do you have a fever (greater than 100.4 F or 38 C)?: No Have you tested positive for COVID-19?: No Exposed to someone with COVID-19 in past 14 days?: No Do you have a sore throat?: No Do you have a cough?: No Do you have any weakness?: No Are you experiencing any nausea/vomitting?: No Do you have any diarrhea?: No Are you experiencing any unusual bleeding?: No Do you have any muscle aches/pain?: No Do you have any abdominal pain?: No Are you experiencing loss of taste or smell?: No Review of Systems Constitutional Constitutional: Reports fatigue and Reports weakness Eyes Eyes: Denies loss of vision ENT Ears, Nose, Mouth, and Throat: Reports disequilibrium, Reports dizziness, Denies hearing loss and Denies vertigo *Cardiovascular Cardiovascular: Denies chest pain, Denies dyspnea and Denies syncope *Respiratory Respiratory: Denies cough and Denies dyspnea *Gastrointestinal Gastrointestinal: Denies change in stool character, Denies nausea and Denies vomiting *Genitourinary Genitourinary: Denies difficulty urinating *Musculoskeletal Musculoskeletal: Reports abnormal gait and Denies muscle weakness Integumentary/Breasts Skin/Breast: Denies changing lesions *Neurologic Neurologic: Reports abnormal gait, Reports abnormal speech, Reports behavioral changes, Reports confusion, Reports disequilibrium, Reports dizziness, Reports lack of coordination, Denies loss of vision, Reports memory loss, Denies syncope, Denies vertigo and Reports weakness Psychiatric Psychiatric: Reports behavioral changes, Reports confusion and Reports memory loss Endocrine Endocrine: Reports fatigue Exam Data for Last 24 hours Vital signs and Labs for Last 24 Hours: Temp Pulse Resp BP Pulse Ox O2 Del Method 98 F 60 16 162/74 H 99 Room Air 09/11/24 08:00 09/11/24 08:00 09/11/24 08:00 09/11/24 08:00 09/11/24 08:00 09/11/24 12:21 Laboratory Results - last 24 hr 09/10/24 15:05: Urine Color Yellow, Urine Appearance Clear, Urine pH 7.0, Ur Specific [place] 1.020, Urine Protein 3+ A, Urine Glucose (UA) Negative, Urine Ketones Negative, Urine Blood 1+ A, Urine Nitrate Negative, Urine Bilirubin Negative, Urine Urobilinogen 0.2, Ur Leukocyte Esterase Negative, Urine RBC 20-50, Urine WBC 3-5, Ur Squamous Epith Cells 5-10, Amorphous Sediment 1+, Urine Bacteria 1+, Urine Mucus 2+, Urine Creatinine 86 09/10/24 15:49: POC Glucose 91 09/11/24 05:26: WBC 6.1, RBC 4.50 L, Hgb 11.9 L, Hct 38.0 L, MCV 84.4, MCH 26.4 L, MCHC 31.3 L, RDW 19.3 H, Plt Count 182, MPV 12.3 H, Neut % (Auto) 66.8, Lymph % (Auto) 17.9, [place] % (Auto) 8.1, Eos % (Auto) 5.9, Baso % (Auto) 1.0, Neut # (Auto) 4.1, Lymph # (Auto) 1.1, [place] # (Auto) 0.5, Eos # (Auto) 0.4, Baso # (Auto) 0.1, Sodium 140, Potassium 3.5, Chloride 104, Carbon Dioxide 28, Anion Gap 11.5, BUN 13, Creatinine 1.40 H, Estimated Creat Clear 54, Estimated GFR 49 L, Est GFR ( Amer) 59, Glucose 92, Calcium 8.8, Total Bilirubin 0.7, AST 21, ALT 12, Alkaline Phosphatase 83, Total Protein 5.1 L, Albumin 2.9 L D, Globulin 2.2, Albumin/Globulin Ratio 1.3 I & O for Last 24 hours: Intake & Output 09/08/24 09/09/24 09/10/24 09/11/24 23:59 23:59 23:59 23:59 Intake Total 200 / 250 50 / 50 Output Total 200 / 200 275 / 275 Balance 0 / 50 -225 / -225 Weight 197 lb 200 lb 11.2 oz Constitutional Constitutional: no acute distress and cooperative *Routine HEENT Exam Eye: Present PERRL *Routine Respiratory Exam Respiratory: Present CTA bilaterally; Absent accessory muscle use, wheezes or crackles *Routine Cardiovascular Exam Cardiovascular: Present RRR, Normal S1 and Normal S2; Absent murmur, gallop or rubs *Routine Abdominal Exam Abdominal: Present soft; Absent tenderness *Routine Extremities Exam Extremities: Present pulses intact; Absent cyanosis or edema *Routine Skin Exam Skin: Present intact; Absent erythema or wounds *Routine Neurological Exam Neurological: Present alert and oriented X3 Comments: poor historian Routine Psychiatric Exam Psychiatric: Present cooperative Meds Home Medications and Allergies Home Medications ?Medication ?Instructions ?Recorded ?Confirmed ?Type allopurinol 100 mg tablet 100 mg PO BID 06/26/23 09/10/24 History atorvastatin 80 mg tablet 80 mg PO HS 06/26/23 09/10/24 History clopidogrel 75 mg tablet (Plavix) 75 mg PO DAILY #30 tabs 04/26/24 09/10/24 Rx rivaroxaban 20 mg tablet (Xarelto) 20 mg PO QPMWITHMEAL 07/27/24 09/10/24 History amiodarone 100 mg tablet 100 mg PO DAILY #30 tabs 08/16/24 09/10/24 Rx cholecalciferol (vitamin D3) 50 50 mcg PO DAILY 09/09/24 09/10/24 History mcg (2,000 unit) tablet pantoprazole 40 mg tablet,delayed 40 mg PO HS 09/09/24 09/11/24 History release potassium chloride 20 mEq 20 meq PO BID 09/09/24 09/10/24 History tablet,extended release levothyroxine 112 mcg tablet 112 mcg PO DAILY 09/10/24 09/11/24 History aspirin 81 mg tablet,delayed 81 mg PO DAILY 20 days #20 tabs 09/11/24 Rx release cefdinir 300 mg capsule 300 mg PO BID 5 days #10 caps 09/11/24 Rx lisinopril 10 mg tablet 20 mg (2 x 10 mg) PO DAILY 30 days 09/11/24 Rx #60 tabs New Prescriptions to Start Prescriptions: Walter Echevarria cefdinir Walter Fan lisinopril Walter Fan Allergies Allergy/AdvReac Type Severity Reaction Status Date / Time empagliflozin (From AdvReac Severe Orthostatic Verified 09/09/24 10:19 Jardiance) hypotension, David's disease Assessment and Plan *Assessment and plan (1) TIA (transient ischemic attack): Status: Acute Category: Medical Code(s): G45.9 - Transient cerebral ischemic attack, unspecified (2) Cerebrovascular small vessel disease: Status: Acute Category: Medical Code(s): I67.9 - Cerebrovascular disease, unspecified (3) HBP (high blood pressure): Status: Acute Category: Medical Code(s): I10 - Essential (primary) hypertension (4) CKD stage 3b, GFR 30-44 ml/min: Status: Acute Category: Medical Code(s): N18.32 - Chronic kidney disease, stage 3b (5) Coronary artery disease: Status: Acute Qualifiers: Associated angina: without angina Coronary Disease-Associated Artery/Lesion type: [place] artery Circle vs. transplanted heart: [place] heart Qualified Code(s): I25.10 - Atherosclerotic heart disease of [place] coronary artery without angina pectoris Category: Medical Code(s): I25.10 - Atherosclerotic heart disease of [place] coronary artery without angina pectoris (6) Atrial fibrillation: Status: Acute Qualifiers: Atrial fibrillation type: unspecified chronic Qualified Code(s): I48.20 - Chronic atrial fibrillation, unspecified Category: Medical Code(s): I48.91 - Unspecified atrial fibrillation Plan Accelerated, Labile Htn - abrupt change given most of the past year he was being seen for severe hypotension in the 70s - likely complicated by worsening dementia - normal renal arteries on [facility] 04/2024 - normal renal US this visit - Midodrone DC'd this week - Monitor I/O - heck renin, aldosterone, metanephrines. Increase Lisinopril to 40mg daily. BID BP log. OP f/u. CKD-III - CR 1.4-1.5 with 3+ proteinuria - Renal US neg for mass - Continue Lisinopril and attempts at BP control CAD s/p CABG 05/2022, [facility] and [facility] 04/2024 - CCS = 0 - EKG SB 58, no ischeima - EF 50% - cont home meds: Plavix, Xarelto, Statin. No BB historically due to severe hypotension. PAF - SR here - cont home dose Xarelto, Amiodarone Vascular Dementia - significant decline in the past 6 months, has been referred to Neuro outpatient - CT Head and MRI Brain here reveal chronic ischemic changes with moderate brain atrophy - cont Xarelto, Plavix, Statin Weakness/Debility - I think likely secondary to worsening vascular dementia - further workup per Hospitalist CV Summary: 09/11: Pt has labile Htn but this is an ongoing outpatient issue for him complicated by worsening dementia/cognitive decline and underlying renal disease with 3+ proteinuria. Renal US negative this admission aside from benign appearing cyst. Secondary Htn labs ordered but will take several days to return and should not delay his discharge. Questionable TIA this week with acute on chronic neurocognitive decline and now loss of bowel control but CTA and MRI show no acute process and no large vessel occlusion or hemorrhage. I have been encouraging outpatient Neuro exam for quite some time for what I think is rapidly declining vascular dementia. He is already on Plavix, Xarelto, and Statin. He needs appt with Neuro within 1-2 weeks. Consider presentation to facility with inpatient Neuro if he presents back to ER again. Complex case. No further inpatient CV intervention planned at this time. Please advise if we can be of further assistance prior to discharge. He needs f/u with Dannielle Jama in 1-2 weeks.
--- NOTE | 2024-09-11 15:03 | CARE MANAGER ---
Acetaminophen (Acetaminophen 325mg Tab) 650 mg PO Q4HP PRN PRN Reason: Fever or Mild Pain (1-3) Stop: 10/10/24 14:33 Allopurinol (Allopurinol 100mg Tablet) 100 mg PO BID [facility] Stop: 10/10/24 20:59 Last Admin: 09/11/24 10:05 Dose: 100 mg Amiodarone HCl (Amiodarone 100mg Tablet) 100 mg PO DAILY GEOVANNI Stop: 10/11/24 08:59 Last Admin: 09/11/24 10:06 Dose: 100 mg Aspirin (Aspirin Ec 81mg Tablet) 81 mg PO DAILY GEOVANNI Stop: 10/11/24 08:59 Last Admin: 09/11/24 10:05 Dose: 81 mg Atorvastatin Calcium (Atorvastatin 40mg Tablet) 80 mg PO HS [facility] Stop: 10/10/24 20:59 Last Admin: 09/10/24 20:58 Dose: 80 mg Clopidogrel Bisulfate (Clopidogrel 75mg Tab) 75 mg PO DAILY GEOVANNI Stop: 10/11/24 08:59 Last Admin: 09/11/24 10:05 Dose: 75 mg Ceftriaxone Sodium 1 gm/ (Sodium Chloride) 50 mls @ 100 mls/hr IV Q24H GEOVANNI Stop: 09/20/24 18:39 Last Admin: 09/10/24 18:56 Dose: 100 mls/hr Levothyroxine Sodium (Levothyroxine 112mcg (0.112mg) Tab) 112 mcg PO DAILYDM [facility] Stop: 10/11/24 08:59 Last Admin: 09/11/24 10:06 Dose: 112 mcg Lisinopril (Lisinopril 10mg Tablet) 10 mg PO DAILY GEOVANNI Stop: 10/10/24 18:44 Last Admin: 09/11/24 10:05 Dose: 10 mg Ondansetron HCl (Ondansetron 4mg/2ml Vial) 4 mg IV Q8HP PRN PRN Reason: Nausea Stop: 10/10/24 14:33 Pantoprazole Sodium (Pantoprazole 40mg Tablet) 40 mg PO HS [facility] Stop: 10/10/24 20:59 Last Admin: 09/10/24 20:58 Dose: 40 mg Rivaroxaban (Rivaroxaban 10mg Tablet) 20 mg PO QPMWITHMEAL [facility] Stop: 10/11/24 17:29 Sodium Chloride (Sodium Chloride 0.9% 10ml Flush Syringe) 10 ml IV NEEDED PRN PRN Reason: Maintain IV Site Stop: 10/10/24 12:40
--- NOTE | 2024-09-11 15:18 | CARE MANAGER ---
Met with patient and his daughter to discuss discharge planning. Patient most appropriate for discharge to SNF, per PT/OT lety today. Patient and daughter are both agreeable to [facility] as first choice and [facility] as second choice. Referral sent to both. CM will continue to monitor.
[2024-09-11 16:00] VITALS: BP 175/68; PULSE 68; RESP 18; TEMP 36.4; O2SAT 98
[2024-09-11] MEDS: OLANZapine 10 MG VIAL 5 MG IM (17:40)
--- NOTE | 2024-09-11 17:45 | PC.WOUNDNOTE ---
Pt. is agitated and refused his iv.
[2024-09-11 20:00] VITALS: BP 113/79; PULSE 73; RESP 17; TEMP 36.8; O2SAT 96
[2024-09-11] MEDS: ATORVASTATIN 40MG TABLET 80 MG PO (20:30)
[2024-09-11] MEDS: PANTOPRAZOLE 40MG TABLET 40 MG PO (20:30)
[2024-09-11] MEDS: CEFDINIR 300MG CAPSULE 300 MG PO (20:31)
[2024-09-12] VITALS: BP 166/72; PULSE 70; RESP 20; TEMP 36.5; O2SAT 95
[2024-09-12 04:00] VITALS: BP 176/90; PULSE 69; RESP 16; TEMP 36.4; O2SAT 98; BMI 23.8
--- NOTE | 2024-09-12 04:11 | PC.NURSE ---
Pt is on RA. Pt A&O x3, at begging of shift. Pt later only A&O to self. Pt had increased confusion, verbalizing thoughts that people were taking his home, pt became resistant to care, and attempted to get out of bed on his own. Pt was verbally deescalated, and has remained fairly calm but still confused at this point in this shift. Pt has not to be medicated for agitation at this point in this shift. Pt does not have IV access rt refusing care. Pt is currently not voicing any further concerns. Pt is resting w/ call light in reach. Plan of care ongoing.
--- NOTE | 2024-09-12 04:54 | PC.NURSE ---
Ice water passed, trash and linens emptied, bedside table cleaned.
[2024-09-12] MEDS: LEVOTHYROXINE 112MCG (0.112MG) TAB 112 MCG PO (06:05)
--- NOTE | 2024-09-12 07:41 | P.PN_ITS ---
Subjective *Date: 09/12/24 *Time: 07:41 Exam Data for Last 24 hours Vital signs and Labs for Last 24 Hours: Temp Pulse Resp BP Pulse Ox O2 Del Method 97.5 F L 69 16 176/90 H 98 Room Air 09/12/24 04:00 09/12/24 04:00 09/12/24 04:00 09/12/24 04:00 09/12/24 04:00 09/12/24 06:48 Laboratory Results - last 24 hr 09/11/24 05:26: WBC 6.1, RBC 4.50 L, Hgb 11.9 L, Hct 38.0 L, MCV 84.4, MCH 26.4 L, MCHC 31.3 L, RDW 19.3 H, Plt Count 182, MPV 12.3 H, Neut % (Auto) 66.8, Lymph % (Auto) 17.9, [place] % (Auto) 8.1, Eos % (Auto) 5.9, Baso % (Auto) 1.0, Neut # (Auto) 4.1, Lymph # (Auto) 1.1, [place] # (Auto) 0.5, Eos # (Auto) 0.4, Baso # (Auto) 0.1 I & O for Last 24 hours: Intake & Output 09/09/24 09/10/24 09/11/24 09/12/24 23:59 23:59 23:59 23:59 Intake Total 200 / 250 50 / 50 Output Total 200 / 200 275 / 275 Balance 0 / 50 -225 / -225 Weight 89.358 kg 91.036 kg 87.09 kg
[2024-09-12 08:00] VITALS: BP 171/81; PULSE 62; RESP 18; TEMP 36.6; O2SAT 98
[2024-09-12] MEDS: ASPIRIN EC 81MG TABLET 81 MG PO (08:54)
[2024-09-12] MEDS: CLOPIDOGREL 75MG TAB 75 MG PO (08:54)
[2024-09-12] MEDS: LISINOPRIL 20MG TABLET 40 MG PO (08:54)
[2024-09-12] MEDS: ALLOPURINOL 100MG TABLET 100 MG PO (08:54)
[2024-09-12] MEDS: CEFDINIR 300MG CAPSULE 300 MG PO (08:54)
--- NOTE | 2024-09-12 10:35 | SW/DCPLANNER ---
Addendum entered by Miriam Sandoval 09/12/24 14:31: Phoned patient's daughter and left a message to let her know that [facility] was able to accept and that they will be calling to come and see patient. David Miranda Addendum entered by Miriam Sandoval 09/12/24 14:29: [facility] has accepted patient for home health services. David Miranda Original Note: Joselin spoke with patient's daughter regarding home health services and daughter stated that they are interested in home health services and that they dont have a preference in what agency her fathers information is faxed to. I will fax patient's information to [facility] and will update once i hear back from them. David Miranda
[2024-09-12 12:00] VITALS: BP 169/87; PULSE 68; RESP 17; TEMP 36.6; O2SAT 98
--- NOTE | 2024-09-12 12:20 | EXP.DC.SUM ---
General Admission date:: 09/10/24 Hospital Course Hospital Course Hospital Course: Anup Box is a 78-year-old male with a medical history significant for CAD/CABG, CVA, A-fib on Xarelto, CKD stage III, hypothyroidism, proteinuria, hematuria who presents with weakness and a 45-minute episode of garbled speech. Patient states it began this morning during which he states he was confused and had garbled speech. No other focal deficits. He then proceeded to come to the ED. Last night, patient states he had an episode of explosive diarrhea/self defecation. He states he has been having these episodes of loose stools for many months. No abdominal pain. Patient has also been having on and off issues with his blood pressures, most recently discontinued from midodrine by cardiology due to elevated pressures. Blood pressure on arrival 180s over 100s. 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 Patient has an upcoming appointment, has not followed up yet. Denies chest pain, shortness of breath, abdominal pain, urinary troubles. Case discussed with ED provider and decision was made to admit patient for TIA workup. #TIA #Garbled speech #Hypertension, new onset ? Patient had a 45-minute episode of garbled speech the morning of admission. Self resolved. In the setting of elevated pressures of 180s over 100s. ? CT head, MRI brain did not show acute findings though limited by motion artifact. Did show global moderate atrophy and chronic ischemic changes. ? ABCD2 score 4. Will need DAPT for at least 21 days. ? Started aspirin 81 mg, continue home clopidogrel 75 mg, atorvastatin 80 mg. ? Started lisinopril 10 mg for hypertension in setting of proteinuria. Low-dose chosen due to previous history of hypotension. ? Hypertension seems to be new onset, previously had hypotensive episodes. Recently discontinued midodrine. May be related to nephritic/nephrotic syndrome as below. ? A1c 5.5, LDL 66, TSH 1.65. Non-smoker. ? Will need further evaluation by neurology within 2 weeks. #Physical deconditioning ? PT/OT recommended SNF, patient and daughter preferred home with home health. 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 Previous urine microalbumin > 1140, continues to have proteinuria 3+ and hematuria 1+ on UA on admission. Concerning for glomerulonephritis. ? Given combination of proteinuria, hematuria, and low albumin and history of lower extremity edema I have concern for nephrotic/nephritic syndrome. ? Nephritic syndrome may be contributing to elevated pressures. ? Renal ultrasound unremarkable other than benign looking left renal cyst. ? Started lisinopril 10 mg per proteinuria, hypertension. ? UA has mild bacteriuria, leukocytosis. Started ceftriaxone day 1 for empiric treatment. Follow-up urine culture. #History of CABG/CAD with stents ? Continue Plavix, Xarelto, atorvastatin. #A-fib ? Continue home amiodarone, Xarelto. Currently rate controlled. #Gout ? Continue home allopurinol 100 mg. #Hypothyroidism ? Continue home levothyroxine 125 mcg. TFTs normal. Total time spent on discharge: 32 minutes on chart review, counseling, documentation, and direct care with patient. Exam Data for Last 24 hours Vital signs and Labs for Last 24 Hours: Temp Pulse Resp BP Pulse Ox O2 Del Method 97.8 F 68 17 169/87 H 98 Room Air 09/12/24 12:00 09/12/24 12:00 09/12/24 12:00 09/12/24 12:00 09/12/24 12:00 09/12/24 12:00 I & O for Last 24 hours: Intake & Output 09/09/24 09/10/24 09/11/24 09/12/24 23:59 23:59 23:59 23:59 Intake Total 200 / 250 50 / 50 Output Total 200 / 200 275 / 275 Balance 0 / 50 -225 / -225 Weight 89.358 kg 91.036 kg 87.09 kg Constitutional Constitutional: no acute distress *Routine HEENT Exam Head: Present normocephalic Eye: Present EOMI and PERRL ENT: Present mucous membranes moist *Routine Neck Exam Neck: Present supple; Absent lymphadenopathy *Routine Respiratory Exam Respiratory: Present CTA bilaterally *Routine Cardiovascular Exam Cardiovascular: Present RRR *Routine Abdominal Exam Abdominal: Present soft and normoactive bowel sounds; Absent tenderness *Routine Extremities Exam Extremities: Absent cyanosis, clubbing or edema *Routine Skin Exam Skin: Present warm; Absent rash *Routine Neurological Exam Neurological: Present alert and oriented X3 DS: Diagnosis Discharge Diagnosis (1) TIA (transient ischemic attack): Status: Acute Code(s): G45.9 - Transient cerebral ischemic attack, unspecified (2) Cerebrovascular small vessel disease: Status: Acute Code(s): I67.9 - Cerebrovascular disease, unspecified (3) HBP (high blood pressure): Status: Acute Code(s): I10 - Essential (primary) hypertension (4) CKD stage 3b, GFR 30-44 ml/min: Status: Acute Code(s): N18.32 - Chronic kidney disease, stage 3b (5) Coronary artery disease: Status: Acute Code(s): I25.10 - Atherosclerotic heart disease of [place] coronary artery without angina pectoris Qualifiers: Associated angina: without angina Coronary Disease-Associated Artery/Lesion type: [place] artery [place] vs. transplanted heart: [place] heart Qualified Code(s): I25.10 - Atherosclerotic heart disease of [place] coronary artery without angina pectoris (6) Atrial fibrillation: Status: Acute Code(s): I48.91 - Unspecified atrial fibrillation Qualifiers: Atrial fibrillation type: unspecified chronic Qualified Code(s): I48.20 - Chronic atrial fibrillation, unspecified Meds Home Medications and Allergies Home Medications ?Medication ?Instructions ?Recorded ?Confirmed ?Type allopurinol 100 mg tablet 100 mg PO BID 06/26/23 09/10/24 History atorvastatin 80 mg tablet 80 mg PO HS 06/26/23 09/10/24 History clopidogrel 75 mg tablet (Plavix) 75 mg PO DAILY #30 tabs 04/26/24 09/10/24 Rx rivaroxaban 20 mg tablet (Xarelto) 20 mg PO QPMWITHMEAL 07/27/24 09/10/24 History amiodarone 100 mg tablet 100 mg PO DAILY #30 tabs 08/16/24 09/10/24 Rx cholecalciferol (vitamin D3) 50 50 mcg PO DAILY 09/09/24 09/10/24 History mcg (2,000 unit) tablet pantoprazole 40 mg tablet,delayed 40 mg PO HS 09/09/24 09/11/24 History release potassium chloride 20 mEq 20 meq PO BID 09/09/24 09/10/24 History tablet,extended release levothyroxine 112 mcg tablet 112 mcg PO DAILY 09/10/24 09/11/24 History aspirin 81 mg tablet,delayed 81 mg PO DAILY 20 days #20 tabs 09/11/24 Rx release cefdinir 300 mg capsule 300 mg PO BID 5 days #10 caps 09/11/24 Rx lisinopril 10 mg tablet 20 mg (2 x 10 mg) PO DAILY 30 days 09/11/24 Rx #60 tabs New Prescriptions to Start Prescriptions: aspirin Walter Fan cefdinir Walter Fan lisinopril Walter Fan Allergies Allergy/AdvReac Type Severity Reaction Status Date / Time empagliflozin (From AdvReac Severe Orthostatic Verified 09/09/24 10:19 Jardiance) hypotension, David's disease Discharge Plan Disposition Patient Disposition: Home, Self-Care Condition: Fair Follow up Plan Follow up with: Yao Kruse [Primary Care Provider, Medical] - 09/18/24 12:00 pm Prescriptions/Medication Reconciliation: New aspirin 81 mg Tablet,Delayed Release (Dr/Ec) 81 mg PO DAILY 20 Days Qty: 20 0RF lisinopril 10 mg Tablet 20 mg PO DAILY 30 Days Qty: 60 0RF cefdinir 300 mg capsule 300 mg PO BID 5 Days Qty: 10 0RF Continued atorvastatin 80 mg tablet 80 mg PO HS Patient Comments: TAKE 1 TABLET BY MOUTH EVERY NIGHT allopurinol 100 mg tablet 100 mg PO BID Patient Comments: TAKE 1 TABLET BY MOUTH EVERY MORNING AND 1 TABLET EVERY NIGHT AT BEDTIME pantoprazole 40 mg tablet,delayed release (DR/EC) 40 mg PO HS cholecalciferol (vitamin D3) 50 mcg (2,000 unit) tablet 50 mcg PO DAILY potassium chloride 20 mEq tablet extended release 20 meq PO BID amiodarone 100 mg tablet 100 mg PO DAILY Qty: 30 2RF clopidogrel [Plavix] 75 mg Tablet 75 mg PO DAILY Qty: 30 6RF levothyroxine 112 mcg tablet 112 mcg PO DAILY Xarelto 20 mg tablet 20 mg PO QPMWITHMEAL Patient Comments: TAKE 1 TABLET BY MOUTH DAILY Problem Reconciliation Problems Reviewed?: Yes Patient Discharge Instructions Additional Instructions: Please follow-up with nephrology soon as possible. Patient Instructions: DI for Transient Ischemic Attack, Stop Light Heart Failure Print Language: Polish Providers Primary Care Provider: Yao Kruse Admit Provider: Walter Fan Attending Provider: Walter Fan
--- NOTE | 2024-09-13 10:57 | SW/DCPLANNER ---
Spoke with patient's daughter on the phone. Patient's daughter stated that her dad seems to be doing a little better. Patient's daughter stated that she is aware of her fathers upcoming appointments. Patient's daughter stated that they were able to get her fathers new medicine picked up from clinic pharmacy. Patient's daughter stated that they have no concerns or questions at this time. David Miranda
== END 2024-09-12 13:05 | disposition home or self-care (01) ==
LOC: ER 14:36 → 2ND 14:57
PROVIDERS: Physician Assistant; Admitting Provider Student in an Organized Health Care Education/Training Program; Emergency Provider Student in an Organized Health Care Education/Training Program; PCP Internal Medicine; Visit Provider Student in an Organized Health Care Education/Training Program
DX: G45.9 Transient cerebral ischemic attack, unspecified (principal); I67.9 Cerebrovascular disease, unspecified; I13.0 Hypertensive heart and chronic kidney disease with heart failure and stage 1 through stage 4 chronic kidney disease, or unspecified chronic kidney disease; I25.10 Atherosclerotic heart disease of native coronary artery without angina pectoris; I48.20 Chronic atrial fibrillation, unspecified; E03.9 Hypothyroidism, unspecified; M10.9 Gout, unspecified; R31.9 Hematuria, unspecified; N18.32 Chronic kidney disease, stage 3b; I50.30 Unspecified diastolic (congestive) heart failure; D72.829 Elevated white blood cell count, unspecified; F17.200 Nicotine dependence, unspecified, uncomplicated; F01.50 Vascular dementia, unspecified severity, without behavioral disturbance, psychotic disturbance, mood disturbance, and anxiety; R47.1 Dysarthria and anarthria; R80.9 Proteinuria, unspecified; Z88.8 Allergy status to other drugs, medicaments and biological substances; Z95.5 Presence of coronary angioplasty implant and graft; Z95.1 Presence of aortocoronary bypass graft; Z79.02 Long term (current) use of antithrombotics/antiplatelets; Z79.899 Other long term (current) drug therapy; Z79.01 Long term (current) use of anticoagulants; Z79.890 Hormone replacement therapy
CPT/HCPCS: 96365; 96372; 36415; 70450; 70496; 70498; 70551; 76770; 80053; 80061; 81001; 82043; 82088; 82570; 82962; 85025; 85610; 85730; 93005; 97110; 97162; 97166; G0378; J0696; J2359; Q9967